=== PATIENT | male | born 1960 | race African-American/Black ===

== ENCOUNTER 2018-05-01 01:39 | Emergency (ER) | payer BC ==
--- NOTE | 2018-05-01 02:12 | PDOC ---
History of Present Illness - General Stated Complaint: URINARY PROBLEM Time Seen by Provider: 05/01/18 01:53 History Source: Patient Exam Limitations: No Limitations - History of Present Illness Travel History: No Initial Comments: 05/01/18 02:11 Best Contact: PCP:None/currently looking for a PMD Pmhx: March 2018/CVA in [place], hypertension Pshx: Two cardiac stents Allergies: MKDA FH:0 Social Hx: Cigarettes/ 0 Alcohol/ social Drugs/0 LMP: N/A 58-year-old male presents to the ER with his complaining of right sided scrotal tenderness without swelling/erythema/discharge and urinary frequency/ urgency with dysuria 3 days but denies fever, chills, nausea/vomiting, headache , dizziness, lightheadedness, facial pains, neck pain/stiffness, back pain, chest pain, shortness of breath, hematuria, extremity numbness or tingling sensation. Patient states he had a stroke approximately 1 month ago and since the incident, he has been unable to void and have him bowel movement on a regular basis. Patient's last bowel movement was yesterday. Patient states he was able to make very hard small bowel movement. Patient states, his blood pressure is usually elevated after his CVA last month. Patient states he saw his clinical exercise specialist 3 days ago and he would like to keep his blood pressure elevated 05/01/18 02:85 B/P 142/70 Past History - Past Medical History Allergies/Adverse Reactions: Allergies Allergy/AdvReac Type Severity Reaction Status Date / Time No Known Drug Allergies Allergy Verified 05/01/18 02:25 "PORK CHOPS' AdvReac Nausea Uncoded 05/01/18 02:25 Home Medications: Ambulatory Orders NK [No Known Home Medication] 04/26/15 Cardiac Disorders: Yes HTN: Yes Hypercholesterolemia: Yes - Surgical History Cardiac Surgery: Yes (STENTS x3) - Immunization History Immunization Up to Date: Yes - Suicide/Smoking/Psychosocial Hx Smoking Status: Yes Smoking History: Current every day smoker Have you smoked in the past 12 months: Yes Number of Cigarettes Smoked Daily: 4 Hx Alcohol Use: Yes Drug/Substance Use Hx: No Substance Use Type: Alcohol Review of Systems - Review of Systems Able to Perform ROS?: Yes Comments:: 05/01/18 02:10 CONSTITUTIONAL: Absent: fever, chills, diaphoresis, generalized weakness, malaise, loss of appetite HEENT: Absent: rhinorrhea, nasal congestion, throat pain, throat swelling, difficulty swallowing, mouth swelling, ear pain, eye pain, visual Changes CARDIOVASCULAR: Absent: chest pain, loss of consciousness, palpitations, irregular heart rate, peripheral edema RESPIRATORY: Absent: cough, shortness of breath, dyspnea with exertion, orthopnea, wheezing, stridor, hemoptysis GASTROINTESTINAL: Absent: abdominal pain, abdominal distension, nausea, vomiting, diarrhea, constipation, melena, hematochezia GENITOURINARY: +dysuria, frequency, urgency, hesitancy Absent: , hematuria, flank pain, genital pain MUSCULOSKELETAL: Absent: myalgia, arthralgia, joint swelling SKIN: Absent: rash, itching, pallor HEMATOLOGIC/IMMUNOLOGIC: Absent: easy bleeding, easy bruising, lymphadenopathy, frequent infections ENDOCRINE: Absent: unexplained weight gain, unexplained weight loss, heat intolerance, cold intolerance NEUROLOGIC: Absent: headache, focal weakness or paresthesias, dizziness, unsteady gait, seizure, mental status changes, bladder or bowel incontinence PSYCHIATRIC: Absent: anxiety, depression, suicidal or homicidal ideation, hallucinations. Is the patient limited Chinese proficient: No *Physical Exam - Physical Exam Comments: 05/01/18 02:11 GENERAL: Well developed, well nourished. Awake and alert. No acute distress. HEENT: Normocephalic, atraumatic. PERRLA, EOMI. No conjunctival pallor. Sclera are non- icteric. Moist mucous membranes. Oropharynx is clear. NECK: Supple. Full ROM. No JVD. Carotid pulses 2+ and symmetric, without bruits. No thyromegaly. No lymphadenopathy. CARDIOVASCULAR: Regular rate and rhythm. No murmurs, rubs, or gallops. Distal pulses are 2+ and symmetric. PULMONARY: No evidence of respiratory distress. Lungs clear to auscultation bilaterally. No wheezing, rales or rhonchi. ABDOMINAL: +cremaster reflex bilaterally, Neg Phrehn sign neg testicular swelling/erythema Soft. Non-tender. Non-distended. No rebound or guarding. No organomegaly. Normoactive bowel sounds. MUSCULOSKELETAL Normal range of motion at all joints. No bony deformities or tenderness. No CVA tenderness. EXTREMITIES: No cyanosis. No clubbing. No edema. No calf tenderness. SKIN: Warm and dry. Normal capillary refill. No rashes. No jaundice. ED Treatment Course - LABORATORY CBC & Chemistry Diagram: 05/01/18 02:52 05/01/18 02:52 Progress Note - Progress Note Progress Note: 0700hrs: Signed out to ZUHAIR Bishop *DC/Admit/Observation/Transfer Diagnosis at time of Disposition: UTI (urinary tract infection) Qualifiers: Urinary tract infection type: acute cystitis Hematuria presence: without hematuria Qualified Code(s): N30.00 - Acute cystitis without hematuria Leukopenia Qualifiers: Leukopenia type: unspecified Qualified Code(s): D72.819 - Decreased white blood cell count, unspecified - Discharge Dispostion Condition at time of disposition: Fair Decision to Admit order: Yes - Referrals - Patient Instructions - Post Discharge Activity
[2018-05-01 02:25] VITALS: BMI 26.6
[2018-05-01] MEDS ORDERED: SODIUM CHLORIDE 1,000 ML IV STA (02:41)
[2018-05-01 03:05] LABS: BASO % 0.7 % (0-2.0); EOS % 4.4 % (0-4.5); HEMATOCRIT 35.3 % (35.4-49); HEMOGLOBIN 11.4 GM/dL (11.7-16.9); LYMPH % 43.1 % (8-40); MCH 22.5 pg (25.7-33.7); MCHC 32.4 g/dl (32.0-35.9); MEAN CELL VOLUME 69.4 fl (80-96); MONO % 11.2 % (3.8-10.2); NEUT % 40.6 % (42.8-82.8); PLATELET COUNT 208 K/MM3 (134-434); RBC 5.08 M/mm3 (4.00-5.60); RDW 16.7 % (11.9-15.9); WHITE BLOOD COUNT 3.9 K/mm3 (4.0-10.0)
[2018-05-01 03:14] LABS: URINE APPEARANCE CLOUDY; URINE BILIRUBIN NEGATIVE (<2.0 mg/dL); URINE COLOR YELLOW; URINE GLUCOSE (UA) NEGATIVE (NEGATIVE); URINE KETONE TRACE (NEGATIVE); URINE NITRITE NEGATIVE (NEGATIVE); URINE UROBILINOGEN 4.0 E.U/dl mg/dL (0.2-1.0)
[2018-05-01 03:17] LABS: URINE LEUK ESTERASE 1+ (NEGATIVE); URINE PROTEIN 2+ (NEGATIVE)
[2018-05-01 03:19] LABS: URINE BACTERIA MODERATE /hpf (NONE SEEN); URINE HYALINE CAST 3 /lpf; YEAST RARE
[2018-05-01 03:27] LABS: ALBUMIN 3.6 g/dl (3.4-5.0); ALK PHOS 90 U/L (45-117); ANION GAP 3 (8-16); BILIRUBIN,TOTAL 0.3 mg/dL (0.2-1.0); BLOOD UREA NITROGEN 17 mg/dL (7-18); CALCIUM 8.7 mg/dL (8.5-10.1); CHLORIDE 108 mmol/L (98-107); CO2 33 mmol/L (21-32); CREATININE 1.3 mg/dL (0.7-1.3); GLUCOSE,RANDOM 89 mg/dL (74-106); POTASSIUM 4.1 mmol/L (3.5-5.1); SGOT/AST 23 U/L (15-37); SGPT/ALT 21 U/L (12-78); SODIUM 144 mmol/L (136-145); TOT PROT 6.5 g/dl (6.4-8.2)
[2018-05-01] MEDS ORDERED: CEFTRIAXONE 1,000 MG in DEXTROSE 5%-WATER - 50 ML IVPB ONE (04:05)
[2018-05-01] MEDS ORDERED: CEFTRIAXONE 1 GM/50 ML BAG ONE (04:18)
--- NOTE | 2018-05-01 04:43 | PDOC ---
*Physical Exam - Vital Signs Last Vital Signs Temp Pulse Resp BP Pulse Ox 97.8 F 84 20 175/99 100 05/01/18 02:22 05/01/18 02:22 05/01/18 02:22 05/01/18 02:22 05/01/18 02:22 - Physical Exam Comments: 05/01/18 04:42 NAD, well appearing, +BASELINE dysarthric, MMM, nl conjunctiva, anicteric; neck supple. lungs clear, RRR, abdomen soft nontender. +right scrotal tenderness , but no swelling, or skin changes/erythema. normal testicular lie. +cremaster reflex bilaterally. penis normal. no hernia. MORENO x4. No peripheral edema. normal color for ethnicity, WWP. 05/01/18 04:46 ED Treatment Course - LABORATORY CBC & Chemistry Diagram: 05/01/18 02:52 05/01/18 02:52 - ADDITIONAL ORDERS Additional order review: Laboratory Results 05/01/18 05/01/18 02:58 02:52 Sodium 144 Potassium 4.1 Chloride 108 H Carbon Dioxide 33 H D Anion Gap 3 L BUN 17 Creatinine 1.3 Creat Clearance w eGFR 56.90 Random Glucose 89 Calcium 8.7 Total Bilirubin 0.3 AST 23 D ALT 21 Alkaline Phosphatase 90 Total Protein 6.5 Albumin 3.6 Urine Color Yellow Urine Appearance Cloudy Urine pH 5.0 Ur Specific [place] 1.028 Urine Protein 2+ H Urine Glucose (UA) Negative Urine Ketones Trace H Urine Blood 1+ H Urine Nitrite Negative Urine Bilirubin Negative Urine Urobilinogen 4.0 e.u/dl Ur Leukocyte Esterase 1+ H Urine WBC (Auto) 418 Urine RBC (Auto) 18 Urine Bacteria Moderate Hyaline Casts 3 Urine Yeast Rare 05/01/18 02:52 RBC 5.08 MCV 69.4 L MCHC 32.4 RDW 16.7 H MPV 8.0 Neutrophils % 40.6 L D Lymphocytes % 43.1 H D Monocytes % 11.2 H D Eosinophils % 4.4 D Basophils % 0.7 - Medications Given in the ED: ED Medications Discontinued Medications Generic Name Dose Route Start Last Admin Trade Name Freq PRN Reason Stop Dose Admin Sodium Chloride 1,000 mls @ 1,000 mls/hr 05/01/18 02:41 05/01/18 03:00 Normal Saline - IV 05/01/18 03:40 1,000 mls/hr ASDIR STA Administration Ceftriaxone Sodium 1,000 mg/ 50 mls @ 100 mls/hr 05/01/18 04:05 05/01/18 04: 15 Dextrose IVPB 05/01/18 04:34 100 mls/hr ONCE ONE Administration Medical Decision Making - Medical Decision Making 05/01/18 04:45 The patient was seen and evaluated in conjunction with midlevel provider under my direct supervision, ancillary studies were reviewed. I agree with the plan as outlined by Abida Duvall 58 YOM CAD s/p cardiac stents 3, hypertension, CVA presenting with sx, dysuria and testicular pain. DDx UTI, epididymitis, prostatitis, orchitis, doubt intra abdominal pathology. vital signs stable, no fever. defer blood cultures for now. labs with mild leukopenia <4K. UA +infection with bacteria, leuk esterase and WBCs, f/u urine cx Scrotal us to eval for epididymorchitis/UTI. IV ceftriaxone 1g x1. place on OBS, anticipate admit. not comfortable with discharge home as he is also unreliable with history and exam and collateral info provided, with recent stroke in [place]; would like admit for continued management and therapy stated. will d/w hospitalist concrete stone fabricator Dr. Silva, and monitor closely. 05/01/18 04:47 05/01/18 05:03 *DC/Admit/Observation/Transfer Diagnosis at time of Disposition: UTI (urinary tract infection) Qualifiers: Urinary tract infection type: acute cystitis Hematuria presence: without hematuria Qualified Code(s): N30.00 - Acute cystitis without hematuria Leukopenia Qualifiers: Leukopenia type: unspecified Qualified Code(s): D72.819 - Decreased white blood cell count, unspecified - Discharge Dispostion Condition at time of disposition: Fair - Referrals - Patient Instructions - Post Discharge Activity
[2018-05-01 06:35] VITALS: TEMP 98
--- NOTE | 2018-05-01 09:30 | PDOC ---
ED Treatment Course - LABORATORY CBC & Chemistry Diagram: 05/01/18 02:52 05/01/18 02:52 - ADDITIONAL ORDERS Additional order review: Laboratory Results 05/01/18 05/01/18 02:58 02:52 Sodium 144 Potassium 4.1 Chloride 108 H Carbon Dioxide 33 H D Anion Gap 3 L BUN 17 Creatinine 1.3 Creat Clearance w eGFR 56.90 Random Glucose 89 Calcium 8.7 Total Bilirubin 0.3 AST 23 D ALT 21 Alkaline Phosphatase 90 Total Protein 6.5 Albumin 3.6 Urine Color Yellow Urine Appearance Cloudy Urine pH 5.0 Ur Specific [place] 1.028 Urine Protein 2+ H Urine Glucose (UA) Negative Urine Ketones Trace H Urine Blood 1+ H Urine Nitrite Negative Urine Bilirubin Negative Urine Urobilinogen 4.0 e.u/dl Ur Leukocyte Esterase 1+ H Urine WBC (Auto) 418 Urine RBC (Auto) 18 Urine Bacteria Moderate Hyaline Casts 3 Urine Yeast Rare 05/01/18 02:52 RBC 5.08 MCV 69.4 L MCHC 32.4 RDW 16.7 H MPV 8.0 Neutrophils % 40.6 L D Lymphocytes % 43.1 H D Monocytes % 11.2 H D Eosinophils % 4.4 D Basophils % 0.7 - Medications Given in the ED: ED Medications Discontinued Medications Generic Name Dose Route Start Last Admin Trade Name Freq PRN Reason Stop Dose Admin Sodium Chloride 1,000 mls @ 1,000 mls/hr 05/01/18 02:41 05/01/18 03:00 Normal Saline - IV 05/01/18 03:40 1,000 mls/hr ASDIR STA Administration Ceftriaxone Sodium 1,000 mg/ 50 mls @ 100 mls/hr 05/01/18 04:05 05/01/18 04: 15 Dextrose IVPB 05/01/18 04:34 100 mls/hr ONCE ONE Administration Progress Note - Progress Note Progress Note: I have received report from ZUHAIR Kennedy regarding this patient. Pt's initial chief complaint: right scrotal tenderness and urinary frequency Pt's work up completed prior to sign out: labs, UA Pt treatment given from prior staff: IV rocephin, IV fluids Pt plan to be completed: awaiting scrotal ultrasound Dispo: d/c to home if ultrasound ok Medical Decision Making - Medical Decision Making A/P: 58 y/o male with urinary frequency and right scrotal tenderness. Patient initially evaluated by ZUHAIR Kennedy. Found to have UTI and give IV abx. Awaiting scrotal ultrasound. Scrotal Ultrasound IMPRESSION: b/l hydroceles. No evidence of torsion. Will discharge to home with rx for UTI and instructions to f/u with PCP. Pt instructed to return to the ER immediately with any worsening or concerning symptoms. The patient verbalizes understanding of all instructions, has no further questions and is awaiting discharge. *DC/Admit/Observation/Transfer Diagnosis at time of Disposition: UTI (urinary tract infection) Qualifiers: Urinary tract infection type: acute cystitis Hematuria presence: without hematuria Qualified Code(s): N30.00 - Acute cystitis without hematuria Leukopenia Qualifiers: Leukopenia type: unspecified Qualified Code(s): D72.819 - Decreased white blood cell count, unspecified - Discharge Dispostion Disposition: HOME Condition at time of disposition: Fair - Referrals Referrals: Bishnu Vargas MD [Staff Physician] - - Patient Instructions Printed Discharge Instructions: DI for Urinary Tract Infection (UTI), DI for Hydrocele-Adult Additional Instructions: Discharge instructions: -You have a urinary tract infection -A prescription for antibiotics has been sent to your pharmacy; please start taking TOMORROW, 05/02/18 -Your ultrasound showed hydroceles of your testicles, which usually goes away on its own without treatment -Please drink plenty of fluids -Please follow up with either Dr. Vargas or your own primary care doctor tomorrow -Return to the ER with any worsening or concerning symptoms - Post Discharge Activity
[2018-05-01 10:07] VITALS: BP 169/124; PULSE 75
== END 2018-05-01 10:56 | disposition home or self-care (01) ==
LOC: JER 01:39
PROC: 3E03329 Introduction of Other Anti-infective into Peripheral Vein, Percutaneous Approach (ICD-10-PCS; principal; 2018-05-01)
PROC: 3E0337Z Introduction of Electrolytic and Water Balance Substance into Peripheral Vein, Percutaneous Approach (ICD-10-PCS; 2018-05-01)
DX: N30.00 Acute cystitis without hematuria (principal); D72.819 Decreased white blood cell count, unspecified; Z95.5 Presence of coronary angioplasty implant and graft; I10 Essential (primary) hypertension; E78.00 Pure hypercholesterolemia, unspecified; F17.210 Nicotine dependence, cigarettes, uncomplicated
CPT/HCPCS: 36415; 76870-TC; 80053; 81003; 81015; 85025; 87077; 87086; 99282-25; J7030

== ENCOUNTER 2018-06-01 01:12 | Emergency (ER) | payer BC ==
--- NOTE | 2018-06-01 01:30 | PDOC ---
Medical Decision Making - Medical Decision Making 06/01/18 01:30 Mr Doan is a 58 yo M h/o recent CVA (with speech difficulties), HTN who returns to the ER with a complaint of testicular swelling and dysuria Pt was seen in the ER several weeks ago where US demonstrated hydrocele UA demonstrated Strep, pt was discharged on Keflex According to , the patient improved briefly on the keflex but his symptoms returned almost immediately after he completed his course of antibiotics no fevers or chills Pt reports that he has urgency, frequency, dysuria, decreased urine output Scrotal edema has also worsened UA demonstrates UTI Laboratory Tests 06/01/18 02:20 Urine Blood 2+ H Urine Nitrite Positive Ur Leukocyte Esterase 3+ H D Urine WBC (Auto) 1296 Urine RBC (Auto) 49 Urine Bacteria Many US demonstrates hydrocele as well as epididymitis Will treat with Cipro Pt has follow up with Urology already Pt asked to monitor for fevers Return to the ER for any other concerns or complaints Discussed with pt and risk of tendon rupture, and signs of possible tendinitis Pt seen by Midlevel Provider under my direct supervision Pt interviewed and examined Ancillary studies reviewed I agree with plan as outlined by Midlevel Provider *DC/Admit/Observation/Transfer Diagnosis at time of Disposition: UTI (urinary tract infection), Acute epididymitis - Discharge Dispostion Disposition: HOME Condition at time of disposition: Fair - Prescriptions Prescriptions: Ciprofloxacin [Cipro -] 500 mg PO Q12H #20 tablet - Referrals - Patient Instructions Printed Discharge Instructions: DI for Epididymitis Additional Instructions: drink plenty of fluids take cipro twice daily as prescribed, follow up with the urology as soon as possible. return to the ER for any worsening symptoms, fever - Post Discharge Activity Forms/Work/School Notes: Back to Work
[2018-06-01 01:52] VITALS: BP 143/83; PULSE 95; TEMP 99.1; BMI 23.6
[2018-06-01 02:33] LABS: URINE APPEARANCE TURBID; URINE BILIRUBIN NEGATIVE (<2.0 mg/dL); URINE COLOR DKYELLOW; URINE GLUCOSE (UA) NEGATIVE (NEGATIVE); URINE KETONE NEGATIVE (NEGATIVE); URINE NITRITE POSITIVE (NEGATIVE); URINE UROBILINOGEN NEGATIVE mg/dL (0.2-1.0)
[2018-06-01 02:39] LABS: URINE LEUK ESTERASE 3+ (NEGATIVE); URINE PROTEIN 1+ (NEGATIVE)
[2018-06-01 02:41] LABS: URINE BACTERIA MANY /hpf (NONE SEEN); URINE MUCUS RARE
--- NOTE | 2018-06-01 02:48 | PDOC ---
History of Present Illness - General Chief Complaint: Edema Stated Complaint: TESTICULAR SWELLING Time Seen by Provider: 06/01/18 01:15 - History of Present Illness Initial Comments: 06/01/18 02:43 58 year old male with b/l testicular swelling and pain since last night, patient also reports dysuria and frequency of urination, denies fever / chills. patient was seen in the ED for similar complaints 05/01/18 was given cephalexin for UTI. US showed b/l hydroceles. patient has a pending urology appointment on 06/13/18. histoory of recent stroke with right sided weakness Past History - Past Medical History Allergies/Adverse Reactions: Allergies Allergy/AdvReac Type Severity Reaction Status Date / Time No Known Drug Allergies Allergy Verified 05/01/18 02:25 "PORK CHOPS' AdvReac Nausea Uncoded 05/01/18 02:25 Home Medications: Ambulatory Orders Cephalexin Monohydrate [Keflex -] 500 mg PO BID #10 capsule 05/01/18 Ciprofloxacin [Cipro -] 500 mg PO Q12H #20 tablet 06/01/18 Cardiac Disorders: Yes COPD: No HTN: Yes Hypercholesterolemia: Yes - Surgical History Cardiac Surgery: Yes (STENTS x3) - Immunization History Immunization Up to Date: Yes - Suicide/Smoking/Psychosocial Hx Smoking Status: Yes Smoking History: Never smoked Have you smoked in the past 12 months: No Number of Cigarettes Smoked Daily: 4 Information on smoking cessation initiated: No Hx Alcohol Use: No Drug/Substance Use Hx: No Substance Use Type: Alcohol Review of Systems - Review of Systems Able to Perform ROS?: Yes Is the patient limited [place] proficient: No Constitutional: No: Symptoms Reported, See HPI, Chills, Diaphoresis, Fever, Loss of Appetite, Malaise, Night Sweats, Weakness, Weight Stable, Unintentional Wgt. Loss, Unexplained wgt Loss, Other ABD/GI: No: Symptoms Reported, See HPI, Abdominal Distended, Abd. Pain w/ defecation, Blood Streaked Bowels, Constipated, Diarrhea, Difficulty Swallowing , Nausea, Poor Appetite, Poor Fluid Intake, Rectal Bleeding, Vomiting, Indigestion, Abdominal cramping, Tarry Stools, Other : Yes: Burning, Dysuria, Pain, Urgency, Testicular Swelling, Testicular Pain *Physical Exam - Vital Signs Last Vital Signs Temp Pulse Resp BP Pulse Ox 99.1 F 95 H 20 143/83 100 06/01/18 01:15 06/01/18 01:15 06/01/18 01:15 06/01/18 01:15 06/01/18 01:15 - Physical Exam General Appearance: Yes: Appropriately Dressed Respiratory/Chest: positive: Lungs Clear, Normal Breath Sounds Cardiovascular: positive: Regular Rhythm, Regular Rate Gastrointestinal/Abdominal: positive: Normal Bowel Sounds, Soft Male Genitalia: positive: testicular tenderness (testicular edema, right and left testicle tenderness noted. ) Musculoskeletal: positive: Normal Inspection. negative: CVA Tenderness Extremity: positive: Normal Capillary Refill, Normal Inspection, Normal Range of Motion Integumentary: positive: Normal Color, Dry, Warm Neurologic: positive: Fully Oriented, Alert, Normal Mood/Affect ED Treatment Course - ADDITIONAL ORDERS Additional order review: Laboratory Results 06/01/18 02:20 Urine Color Dkyellow Urine Appearance Turbid Urine pH 6.0 Ur Specific [place] 1.004 Urine Protein 1+ H Urine Glucose (UA) Negative Urine Ketones Negative Urine Blood 2+ H Urine Nitrite Positive Urine Bilirubin Negative Urine Urobilinogen Negative Ur Leukocyte Esterase 3+ H D Urine WBC (Auto) 1296 Urine RBC (Auto) 49 Urine Bacteria Many Urine Mucus Rare - RADIOLOGY Radiology Studies Ordered: Category Date Time Status SCROTUM AND CONTENTS US [US] Stat Ultrasound 06/01/18 01:15 Taken Progress Note - Progress Note Progress Note: A: acute epidydymitis P: cipro urology follow up scrotal supportl *DC/Admit/Observation/Transfer Diagnosis at time of Disposition: Acute epididymitis UTI (urinary tract infection) Qualifiers: Urinary tract infection type: acute cystitis Hematuria presence: with hematuria Qualified Code(s): N30.01 - Acute cystitis with hematuria - Prescriptions Prescriptions: Ciprofloxacin [Cipro -] 500 mg PO Q12H #20 tablet - Referrals - Patient Instructions Printed Discharge Instructions: DI for Epididymitis Additional Instructions: drink plenty of fluids take cipro twice daily as prescribed, follow up with the urology as soon as possible. return to the ER for any worsening symptoms, fever - Post Discharge Activity Forms/Work/School Notes: Back to Work
[2018-06-01] MEDS ORDERED: PRESCRIPTION PAD 1 EACH EACH NR ONE (02:51)
== END 2018-06-01 03:04 | disposition home or self-care (01) ==
LOC: JER 01:12
DX: N30.01 Acute cystitis with hematuria (principal); Z95.5 Presence of coronary angioplasty implant and graft; I10 Essential (primary) hypertension; E78.00 Pure hypercholesterolemia, unspecified
CPT/HCPCS: 76870-TC; 81003; 81015; 87086; 87186; 99282-25

== ENCOUNTER 2018-07-21 10:06 | Emergency (ER) | payer BC ==
[2018-07-21 10:23] VITALS: BMI 25.7
--- NOTE | 2018-07-21 11:07 | PDOC ---
*Physical Exam - Vital Signs Last Vital Signs Temp Pulse Resp BP Pulse Ox 98.0 F 75 16 123/77 100 07/21/18 10:18 07/21/18 10:18 07/21/18 10:18 07/21/18 10:18 07/21/18 10:18 Medical Decision Making - Medical Decision Making 07/21/18 11:06 Pt seen by the Advanced Practice Provider under my direct supervision Ancillary studies reviewed I agree with plan as outlined by the Advanced Practice Provider ZUHAIR Rubin 58 year old M c/ hx of HTN, HLD, CVA called in for elevated potassium on routine labs. Pt has no complaints. Will check potassium here. If it was a spurious finding, will discharge pt home. *DC/Admit/Observation/Transfer - Referrals Referrals: Maral Benton MD [Primary Care Provider] - - Patient Instructions - Post Discharge Activity
--- NOTE | 2018-07-21 11:17 | PDOC ---
History of Present Illness - General Chief Complaint: Revisit, Lab Variance Stated Complaint: LAB VARIANCE Time Seen by Provider: 07/21/18 10:33 History Source: Patient, Friend Exam Limitations: No Limitations - History of Present Illness Initial Comments: 07/21/18 11:10 58 yo M w/ a h/o HTN, HLD, CVA 04/06 (w/ residual R sided weakness and expressive aphasia) sent by PMD for a high potassium. Pt saw his PMD Dr. Maral Benton from [facility] yesterday, had some labs drawn and received a voicemail last night saking him to come ti the ER for evlevated potassium level. Pt denies any medical complaints at this time. Denies fever/chills, no chest pain, no SOB, no h/o kidney disease, no prior h/o similar symptoms Past History - Past Medical History Allergies/Adverse Reactions: Allergies Allergy/AdvReac Type Severity Reaction Status Date / Time No Known Drug Allergies Allergy Verified 07/21/18 10:17 "PORK CHOPS' AdvReac Nausea Uncoded 07/21/18 10:17 Home Medications: Ambulatory Orders Cephalexin Monohydrate [Keflex -] 500 mg PO BID #10 capsule 05/01/18 Ciprofloxacin [Cipro -] 500 mg PO Q12H #20 tablet 06/01/18 Cardiac Disorders: Yes (CAD W/ STENTS) COPD: No HTN: Yes Hypercholesterolemia: Yes - Surgical History Cardiac Surgery: Yes (STENTS x3) - Immunization History Immunization Up to Date: Yes - Suicide/Smoking/Psychosocial Hx Smoking Status: Yes Smoking History: Never smoked Have you smoked in the past 12 months: No Number of Cigarettes Smoked Daily: 4 Information on smoking cessation initiated: No Hx Alcohol Use: No Drug/Substance Use Hx: No Substance Use Type: Alcohol Review of Systems - Review of Systems Able to Perform ROS?: Yes Constitutional: No: Chills, Fever, Malaise, Night Sweats HEENTM: No: Eye Pain, Recent change in vision, Throat Pain Respiratory: No: Cough, Shortness of Breath Cardiac (ROS): No: Chest Pain, Palpitations, Chest Tightness ABD/GI: No: Diarrhea, Nausea, Vomiting, Abdominal cramping : No: Dysuria, Hematuria Musculoskeletal: No: Back Pain Integumentary: No: Rash Neurological: No: Headache, Dizziness Psychiatric: No: Change in Appetite Endocrine: No: Unexplained Weight Loss *Physical Exam - Vital Signs Last Vital Signs Temp Pulse Resp BP Pulse Ox 98.0 F 75 16 123/77 100 07/21/18 10:18 07/21/18 10:18 07/21/18 10:18 07/21/18 10:18 07/21/18 10:18 - Physical Exam Comments: 07/21/18 11:20 slight expressive aphasia , as per patient, residual from 04/06 CVA General Appearance: Yes: Nourished. No: Apparent Distress HEENT: positive: JUAN CARLOS, Normal ENT Inspection, Normal Voice. negative: Pale Conjunctivae, Scleral Icterus (R), Scleral Icterus (L) Neck: positive: Supple. negative: Decreased range of motion, Tender midline Respiratory/Chest: positive: Lungs Clear, Normal Breath Sounds. negative: Respiratory Distress, Accessory Muscle Use Cardiovascular: positive: Regular Rhythm, Regular Rate Gastrointestinal/Abdominal: positive: Normal Bowel Sounds, Soft. negative: Tender Musculoskeletal: positive: Normal Inspection. negative: CVA Tenderness, Decreased Range of Motion Extremity: positive: Normal Capillary Refill, Normal Inspection, Normal Range of Motion. negative: Tender, Pedal Edema Integumentary: positive: Normal Color, Dry. negative: Jaundice, Rash Neurologic: positive: Fully Oriented, Alert, Normal Mood/Affect, Other (motor strength 2/5 RUE, 5/5 LUE, 4/5 RLE, 5/5 LLE (residual from CVA 04/06 as per patient).) ED Treatment Course - LABORATORY CBC & Chemistry Diagram: 07/21/18 11:00 07/21/18 11:00 Medical Decision Making - Medical Decision Making 07/21/18 11:21 58 yo M here foe evaluation of abnormal labs R/O hyperkalemia Vs hemolysis. Will do CBC, BMP, mag, phos, EKg and reassess. Pt asymptomatic at the moment. He asked for food, sandwich provided 07/21/18 11:56 Potassium is WNLs. Patient will get discharged carlos. Pt is in no apparent distress, ambulating without any problems WIll discharge home with PMD follow up Return for worsening/concerning symptoms Pt verbalizes undersanding and agrees with plan Case discussed with attending who agrees with assessment and plan *DC/Admit/Observation/Transfer Diagnosis at time of Disposition: Laboratory test - Discharge Dispostion Disposition: HOME Condition at time of disposition: Stable Decision to Admit order: No - Referrals Referrals: Maral Benton MD [Primary Care Provider] - - Patient Instructions - Post Discharge Activity
[2018-07-21 11:25] LABS: BASO % 0.9 % (0-2.0); EOS % 2.8 % (0-4.5); HEMATOCRIT 38.8 % (35.4-49); HEMOGLOBIN 12.1 GM/dL (11.7-16.9); LYMPH % 48.9 % (8-40); MCH 21.2 pg (25.7-33.7); MEAN CELL VOLUME 68.3 fl (80-96); MEAN PLT VOLUME 8.1 fl (7.5-11.1); MONO % 11.3 % (3.8-10.2); NEUT % 36.1 % (42.8-82.8); PLATELET COUNT 239 K/MM3 (134-434); RBC 5.68 M/mm3 (4.00-5.60); RDW 17.7 % (11.9-15.9)
[2018-07-21 11:47] LABS: ALBUMIN 3.7 g/dl (3.4-5.0); ALK PHOS 77 U/L (45-117); ANION GAP 9 MMOL/L (8-16); BILIRUBIN,TOTAL 0.6 mg/dL (0.2-1); BLOOD UREA NITROGEN 29 mg/dL (7-18); CALCIUM 9.1 mg/dL (8.5-10.1); CHLORIDE 101 mmol/L (98-107); CO2 26 mmol/L (21-32); CREATININE 1.2 mg/dL (0.55-1.3); GLUCOSE,RANDOM 79 mg/dL (74-106); MAGNESIUM 2.1 mg/dL (1.8-2.4); PHOSPHOROUS 3.5 mg/dL (2.5-4.9); POTASSIUM 3.8 mmol/L (3.5-5.1); SGOT/AST 17 U/L (15-37); SGPT/ALT 18 U/L (13-61); SODIUM 136 mmol/L (136-145); TOT PROT 6.9 g/dl (6.4-8.2)
[2018-07-21 12:15] LABS: ANISOCYTOSIS 1+; MACROCYTOSIS 1+
[2018-07-21 12:16] LABS: OVALOCYTE 1+
[2018-07-21 12:28] VITALS: BP 125/79; PULSE 68; TEMP 98
--- NOTE | 2018-07-21 14:45 | EKG ---
Test Reason : Blood Pressure : / mmHG Vent. Rate : 069 BPM Atrial Rate : 069 BPM P-R Int : 188 ms QRS Dur : 120 ms QT Int : 412 ms P-R-T Axes : 072 066 064 degrees QTc Int : 441 ms NORMAL SINUS RHYTHM POSSIBLE LEFT ATRIAL ENLARGEMENT LEFT VENTRICULAR HYPERTROPHY WITH QRS WIDENING ANTERIOR INFARCT (CITED ON OR BEFORE 11-MAR-2012) T WAVE ABNORMALITY, CONSIDER LATERAL ISCHEMIA ABNORMAL ECG WHEN COMPARED WITH ECG OF 30-MAY-2016 02:39, ST NO LONGER ELEVATED IN ANTERIOR LEADS T WAVE INVERSION NO LONGER EVIDENT IN INFERIOR LEADS T WAVE INVERSION NOW EVIDENT IN ANTEROLATERAL LEADS Confirmed by PJ RODRIGUEZ, BIBI (2013) on 07/21/2018 2:45:17 PM Referred By: Confirmed By:BIBI OLIVA MD
== END 2018-07-21 12:28 | disposition home or self-care (01) ==
LOC: JER 10:06
DX: Z00.01 Encounter for general adult medical examination with abnormal findings (principal); E87.5 Hyperkalemia; I25.10 Atherosclerotic heart disease of native coronary artery without angina pectoris; I10 Essential (primary) hypertension; E78.5 Hyperlipidemia, unspecified; E78.00 Pure hypercholesterolemia, unspecified; I69.820 Aphasia following other cerebrovascular disease; I69.851 Hemiplegia and hemiparesis following other cerebrovascular disease affecting right dominant side
CPT/HCPCS: 36415; 80053; 83735; 84100; 85025; 93005; 93010; 99282-25

== ENCOUNTER 2018-11-28 21:47 | Inpatient (IN) | payer BC ==
--- NOTE | 2018-11-28 23:06 | PDOC ---
Attending Attestation - HPI HPI: 11/28/18 23:30 The patient is a 58 year old male, with a significant PMH of HTN, HLD, CVA 2018 - right sided weakness, who presents to the emergency department s/p fall earlier today. The patient states he was at the grocery store when he found himself lying flat on the ground with no recall of what happened. He notes that he was ambulatory after the event and went about his normal day. The patients was at the grocery store and did not see the event but found the patient sitting up on the ground. Patient denies any complaints. The patient denies chest pain, shortness of breath, headache and dizziness. Denies fever, chills, nausea, vomit, diarrhea and constipation. Denies dysuria, frequency, urgency and hematuria. Allergies: NKA Social history: None reported - Physicial Exam PE: 11/28/18 23:30 Agree with resident's exam. <Sarah Mcfadden - Last Filed: 11/28/18 23:30> - Resident Resident Name: Grabiel Boles - ED Attending Attestation I have performed the following: I have examined & evaluated the patient, The case was reviewed & discussed with the resident, I agree w/resident's findings & plan - Medical Decision Making 11/29/18 02:24 58-year-old male status post syncopal episode with hypotension on arrival Labs are consistent with acute kidney injury CT scan of the brain shows no acute abnormality Troponin is within normal limits IV fluid normal saline 1 L bolus given with plans for admission, case discussed with hospitalist service <Heather Ortiz - Last Filed: 11/29/18 02:26> Attestations - Attestations 11/28/18 23:30 Documentation prepared by Sarah Mcfadden, acting as biomedical field service engineer for Heather Ortiz DO. <Sarah Mcfadden - Last Filed: 11/28/18 23:30>
--- NOTE | 2018-11-28 23:26 | PDOC ---
History of Present Illness - General Chief Complaint: Altered Mental Status Stated Complaint: CONFUSED Time Seen by Provider: 11/28/18 23:05 - History of Present Illness Initial Comments: 11/28/18 23:18 58 yo M with h/o HTN, HLD, CVA (04/06 with residual R sided weakness and expressive aphasia) on AC who p/w syncopal event. Patient reports episode of syncope this AM. Patient reports shopping at grocery store this AM (unknown time ), and being found face down on floor by . Patient does not recall how he got onto floor, or does not recall head trauma. Patient denies DEXTER, convulsions, vision change, palpitations, cough, wheezing, orthopena, PND, leg swelling/pain, N/V, F,C, CP, SOB, urinary complaints, hematuria, BPR, abdominal pain, diarrhea, constipation, lightheadedness, weakness, sensory changes. PMHx: as noted above ROS: as noted SHx: Social Etoh. Denies IVDA, Etoh. Allergies: NKDA Past History - Past Medical History Allergies/Adverse Reactions: Allergies Allergy/AdvReac Type Severity Reaction Status Date / Time No Known Drug Allergies Allergy Verified 11/28/18 23:53 "PORK CHOPS' AdvReac Nausea Uncoded 11/28/18 23:53 Home Medications: Ambulatory Orders Unobtainable 11/28/18 Cardiac Disorders: Yes (CAD W/ STENTS) COPD: No HTN: Yes Hypercholesterolemia: Yes - Surgical History Cardiac Surgery: Yes (STENTS x3) - Immunization History Immunization Up to Date: Yes - Suicide/Smoking/Psychosocial Hx Smoking Status: Yes Smoking History: Never smoked Have you smoked in the past 12 months: No Number of Cigarettes Smoked Daily: 4 Information on smoking cessation initiated: No Hx Alcohol Use: No Drug/Substance Use Hx: No Substance Use Type: Alcohol Trauma Specific PMHX - Complaint Specific PMHX Back Injury: No Neck Injury: No Review of Systems - Review of Systems Comments:: 11/28/18 23:32 GENERAL/CONSTITUTIONAL: No fever or chills. No weakness. HEAD, EYES, EARS, NOSE AND THROAT: No change in vision. No ear pain or discharge. No sore throat. CARDIOVASCULAR: No chest pain or shortness of breath RESPIRATORY: No cough, wheezing, or hemoptysis. GASTROINTESTINAL: No nausea, vomiting, diarrhea or constipation. GENITOURINARY: No dysuria, frequency, or change in urination. MUSCULOSKELETAL: No joint or muscle swelling or pain. No neck or back pain. SKIN: No rash NEUROLOGIC: No headache, vertigo, loss of consciousness, or change in strength/ sensation. ENDOCRINE: No increased thirst. No abnormal weight change HEMATOLOGIC/LYMPHATIC: No anemia, easy bleeding, or history of blood clots. ALLERGIC/IMMUNOLOGIC: No hives or skin allergy. *Physical Exam - Vital Signs Last Vital Signs Temp Pulse Resp BP Pulse Ox 98.2 F 92 H 16 85/49 L 100 11/28/18 21:58 11/28/18 21:58 11/28/18 21:58 11/28/18 21:58 11/28/18 21:58 - Physical Exam Comments: 11/28/18 23:32 GENERAL: Awake, alert, and fully oriented, in no acute distress HEAD: No signs of trauma, normocephalic, atraumatic EYES: PERRLA, EOMI, sclera anicteric, conjunctiva clear ENT: Auricles normal inspection, hearing grossly normal, nares patent, oropharynx clear without exudates. Moist mucosa NECK: Normal ROM, supple, no lymphadenopathy, JVD, or masses LUNGS: No distress, speaks full sentences, clear to auscultation bilaterally HEART: Regular rate and rhythm, normal S1 and S2, no murmurs, rubs or gallops, peripheral pulses normal and equal bilaterally. ABDOMEN: Soft, nontender, normoactive bowel sounds. No guarding, no rebound. No masses RECTAL: Absent gross blood, absent hemorrhoids, fissures. EXTREMITIES : Normal inspection, Normal range of motion, no edema. No clubbing or cyanosis. NEUROLOGICAL: Cranial nerves II through XII grossly intact. Speech dysarthric, normal gait, Motor strenght 2/5 RUE, 5/5 LUE, BL LE 5/5. Compared to interval neuro exam with residual deficits (CVA 04/06). SKIN: Warm, Dry, normal turgor, no rashes or lesions noted Moderate Sedation - Procedure Monitoring Vital Signs: Procedure Monitoring Vital Signs Temperature 98.2 F 11/28/18 21:58 Pulse Rate 92 H 11/28/18 21:58 Respiratory Rate 16 11/28/18 21:58 Blood Pressure 85/49 L 11/28/18 21:58 O2 Sat by Pulse Oximetry (%) 100 11/28/18 21:58 ED Treatment Course - LABORATORY CBC & Chemistry Diagram: 11/29/18 00:15 11/29/18 00:15 - ADDITIONAL ORDERS Additional order review: 11/29/18 01:44 Patient Information: : 1960 Order Type: Preliminary Name: CLAUDIA POLLARD Sex: M Study Description: CT HEAD Modality: CT Location: [facility] Referring Physician: MADDIE JEAN ADDENDUM Comments: Sam Mckeon MD wrote on Nov 29, 2018 at 01:25 AM: Referring Physician: MADDIE TAYLOR Addendum: There are also old bilateral cerebellar lobe infarcts without hemorrhage or mass effect. An embolic phenomena should be considered. This finding was verbally communicated to Grabiel Boles MD on WedNovember 29 2018 01:22:54 EDT. One or more of the following dose reduction techniques were used: automated exposure control, adjustment of the mA and/or kV according to patient size, use of iterative reconstructive technique. THIS DOCUMENT HAS BEEN ELECTRONICALLY SIGNED Jeff Mckeon MD 11/29/2018 01:24 EST M.D. Please call Imaging Electrical Engineering Designer [phone] with questions. Sam Mckeon MD CONFIDENTIALITY NOTICE: This information is intended only for the use of the recipient(s) named above. If you are not the intended recipient, or a person responsible for delivering it to the intended recipient, you are hereby notified that any disclosure, copying, distribution or use of any of the information contained in or attached to this transmission is STRICTLY PROHIBITED. If you have received this transmission in error, please immediately notify Imaging Electrical Engineering Designer and destroy the original transmission and its attachments without saving them in any manner [address] [place] [address] [place] [address] Phone: [phone] Fax: Email: [email or web address] Web: [email or web address] Patient Information: : 1960 Order Type: Preliminary Name: CLAUDIA POLLARD Sex: M Study Description: CT HEAD Modality: CT Location: [facility] Referring Physician: MADDIE JEAN Comments: Sam Mckeon MD wrote on Nov 29, 2018 at 01:14 AM: Referring Physician: MADDIE JEAN Patient Name: ATUL TAYLOR THIS IS A PRELIMINARY REPORT FROM [facility] DATE OF SERVICE: 2018-11-29 00:50:07 IMAGES: 171 EXAM: HEAD CT WITHOUT CONTRAST HISTORY: Trauma COMPARISON: None. FINDINGS: The ventricular system is midline and nondilated. Mild cortical atrophy is noted. There is moderate low attenuation in the left temporal lobe and posterior left parietal lobe, consistent with a large subacute left MCA distribution infarct. There is more significant low attenuation in the left occipital lobe consistent with encephalomalacia from old left DRENCHER distribution infarct. There is an old small right DRENCHER infarct as well. There is no bleed, mass, extra-axial fluid collection or mass effect. No skull fracture or skull lesion is identified. The visualized paranasal sinuses and mastoid air cells are clear. CONFIDENTIALITY NOTICE: This information is intended only for the use of the recipient(s) named above. If you are not the intended recipient, or a person responsible for delivering it to the intended recipient, you are hereby notified that any disclosure, copying, distribution or use of any of the information contained in or attached to this transmission is STRICTLY PROHIBITED. If you have received this transmission in error, please immediately notify Imaging Electrical Engineering Designer and destroy the original transmission and its attachments without saving them in any manner [address] [facility] [address] [place] [address] Phone: [phone] Fax: Email: [email or web address]: [email or web address] Patient Information: : 1960 Order Type: Preliminary Name: CLAUDIA POLLARD Sex: M Study Description: CT HEAD Modality: CT Location: [facility] Referring Physician: MADDIE JEAN IMPRESSION: Large subacute left middle cerebral artery which infarct without hemorrhage or mass effect. Old bilateral posterior distribution infarcts. One or more of the following dose reduction techniques were used: automated exposure control, adjustment of the mA and/or kV according to patient size, use of iterative reconstructive technique. THIS DOCUMENT HAS BEEN ELECTRONICALLY SIGNED Jeff Mckeon MD 11/29/2018 01:12 CATERINA Tovar. Please call Imaging Electrical Engineering Designer [phone] with questions. Sam Mckeon MD Clinicians - Please contact Imaging Electrical Engineering Designer with further questions at [phone] Patients - Please contact your Ordering Provider with questions - RADIOLOGY Radiology Studies Ordered: Category Date Time Status CXRPORT [CHEST X-RAY PORTABLE*] [RAD] Stat Radiology 11/28/18 23:06 Ordered Medical Decision Making - Medical Decision Making 11/28/18 23:28 58 yo M with h/o HTN, HLD, CVA (04/06 with residual R sided weakness and expressive aphasia) on AC who p/w syncopal event. BP 85/49, vitals otherwise wnl , AF, A&Ox3. Physical exam unremarkable. No acute neruo deficits on physical exam. Head atraumatic. No evidence of basilar skull fracture. C-spine neg per NEXUS criteria. R/o CVA. Will assess for VBI/TIA, cardiac dysarrythmias, hypoglycemia, electrolyte abnml, metabolic and toxic derangements, acid-base disturbances, infection. Ed Course: 11/29/18 00:06 EKG: NSR with absent acute JHONY, STD. Normal interval duration and axis. Similiar to interval EKG (07/2018) 11/29/18 01:19 BUN/Cr: 31/2.1 11/29/18 01:21 WBC: 2.3 Trop: Neg Per radiologist auditing control clerk patient with subacute left MCA infarct/embolic. 11/29/18 01:36 NS 1 L 11/29/18 01:44 CT AP: The ventricular system is midline and nondilated. Mild cortical atrophy is noted. There is moderate low attenuation in the left temporal lobe and posterior left parietal lobe, consistent with a large subacute left MCA distribution infarct. There is more significant low attenuation in the left occipital lobe consistent with encephalomalacia from old left DRENCHER distribution infarct. There is an old small right DRENCHER infarct as well. There is no bleed, mass, extra-axial fluid collection or mass effect. No skull fracture or skull lesion is identified. The visualized paranasal sinuses and mastoid air cells are clear Plan to admit ADIA, Syncope 11/29/18 01:45 BP improved 127/80 Patient endorsed to Patrick Conner, admitted to tele/Dr. Cardoza *DC/Admit/Observation/Transfer Diagnosis at time of Disposition: Syncope and collapse, ADIA (acute kidney injury) - Discharge Dispostion Condition at time of disposition: Stable Decision to Admit order: Yes - Referrals - Patient Instructions Printed Discharge Instructions: DI for Syncope in Adults (Fainting) Additional Instructions: Please return to the emergency department with any new or worsening symptoms or concerns. Please follow up with your primary care physician and neurology within 72 hours. - Post Discharge Activity - Attestations Physician Attestion: 11/28/18 23:40 I attest to the information provided in this note.
[2018-11-29 00:36] LABS: BASO % 0.9 % (0-2.0); EOS % 0.5 % (0-4.5); HEMATOCRIT 35.4 % (35.4-49); HEMOGLOBIN 11.7 GM/dL (11.7-16.9); LYMPH % 53.4 % (8-40); MCHC 33.1 g/dl (32.0-35.9); MEAN CELL VOLUME 69.4 fl (80-96); MEAN PLT VOLUME 8.5 fl (7.5-11.1); NEUT % 28.2 % (42.8-82.8); PLATELET COUNT 193 K/MM3 (134-434); RDW 17.6 % (11.9-15.9); WHITE BLOOD COUNT 2.3 K/mm3 (4.0-10.0)
[2018-11-29 00:52] LABS: INR 1.04 (0.83-1.09); PROTHROMBIN TIME (PATIENT) 12.3 SEC (9.7-13.0)
[2018-11-29 01:02] LABS: ALBUMIN 3.7 g/dl (3.4-5.0); ALK PHOS 78 U/L (45-117); ANION GAP 5 MMOL/L (8-16); BILIRUBIN,TOTAL 0.4 mg/dL (0.2-1); BLOOD UREA NITROGEN 31 mg/dL (7-18); CALCIUM 8.6 mg/dL (8.5-10.1); CHLORIDE 101 mmol/L (98-107); CO2 30 mmol/L (21-32); CREATININE 2.1 mg/dL (0.55-1.3); GLUCOSE,RANDOM 97 mg/dL (74-106); POTASSIUM 3.7 mmol/L (3.5-5.1); SGOT/AST 28 U/L (15-37); SGPT/ALT 32 U/L (13-61); SODIUM 136 mmol/L (136-145); TOT PROT 6.7 g/dl (6.4-8.2)
[2018-11-29] MEDS ORDERED: SODIUM CHLORIDE 1,000 ML IV STA (01:29)
--- NOTE | 2018-11-29 02:07 | HP ---
CHIEF COMPLAINT: Syncope PCP:does not know HISTORY OF PRESENT ILLNESS: history is taking from ED records as pt is poor historian with aphasia and his already left , will reach out to her IN AM for more detailes 58 yo M with h/o HTN, HLD, CVA (04/06 with residual R sided weakness and expressive aphasia) who p/w syncopal event. Patient reports episode of syncope this AM. Patient reports shopping at grocery store this AM (unknown time), and being found face down on floor by . Patient does not recall how he got onto floor, or does not recall head trauma. Patient denies DEXTER, convulsions, vision change, palpitations, cough, wheezing, orthopena, PND, leg swelling/pain, N/V, F,C, CP, SOB, urinary complaints, hematuria, BPR, abdominal pain, diarrhea, constipation, lightheadedness, weakness, sensory changes. pt lived with his and one of his kids , he is independent in showering and eating . his drove to the hospital after fall at the mall , unknown mechanical or syncopal ER course was notable for: (1) Head CT (2)CBC, CMP (3) NS 1 L bolus Recent Travel:denies PAST MEDICAL HISTORY: HTN , HLD CVA with residual aphasia and right side weakness PAST SURGICAL HISTORY: Social History: Smokin cig /day since age of 16 Alcohol:previous Drugs: denies Family History:non contributory Allergies No Known Drug Allergies Allergy (Verified 11/28/18 23:53) "PORK CHOPS' Adverse Reaction (Uncoded 11/28/18 23:53) Nausea HOME MEDICATIONS: Home Medications Medication Instructions Recorded Unobtainable 11/28/18 REVIEW OF SYSTEMS aphasia . poor dentation PHYSICAL EXAMINATION Vital Signs - 24 hr 11/28/18 11/29/18 21:58 00:25 Temperature 98.2 F Pulse Rate 92 H Respiratory 16 Rate Blood Pressure 85/49 L O2 Sat by Pulse 100 100 Oximetry (%) GENERAL: AAOx1 to person only does not know time or place in AND HEAD: Normal with no signs of trauma. EYES: Pupils equal, round and reactive to light, extraocular movements intact, sclera anicteric, EARS, NOSE, THROAT: Ears normal, nares patent, oropharynx clear without exudates. Moist mucous membranes. NECK: Normal range of motion, supple LUNGS: Breath sounds equal, clear to auscultation bilaterally. No wheezes, and no crackles. No accessory muscle use. HEART: Regular rate and rhythm, normal S1 and S2 without murmur, rub or gallop. ABDOMEN: Soft, nontender, not distended, normoactive bowel sounds, no guarding, UPPER EXTREMITIES: 2+ pulses, warm, well-perfused. No cyanosis. No clubbing. No peripheral edema.sensation decreased in right side , strength 5/5 left arm proximal and distal hand organic gardening teacher , biceps and triceps , right arm 4/5 biceps and triceps , hand organic gardening teacher 3/5 right arm hand organic gardening teacher 4/5 , biceps and triceps 5/5 , reflexes intact LOWER EXTREMITIES: 2+ pulses, warm, well-perfused. No calf tenderness. No peripheral edema. sensation decreased on the right leg , dorsiflexion and plantar flexion 5/5 B/L , leg extension and flexion 5/5 B/L , hip flexion and extension 5/5 B/L . NEUROLOGICAL: Cranial nerves II-XII intact. aphasia, right facial drop , sensation decreased on right face trigeminal pattern , DEBBIE, EOMI , uvula med line , cerebellum intact , AAOx 1 to person PSYCHIATRIC: SKIN: Warm, dry, normal turgor, Laboratory Results - last 24 hr 11/29/18 11/29/18 11/29/18 00:15 00:15 00:15 WBC 2.3 L RBC 5.10 Hgb 11.7 Hct 35.4 MCV 69.4 L MCH 23.0 L MCHC 33.1 RDW 17.6 H Plt Count 193 MPV 8.5 Absolute Neuts (auto) 0.7 L Neutrophils % 28.2 L D Lymphocytes % 53.4 H Monocytes % 17.0 H Eosinophils % 0.5 D Basophils % 0.9 Nucleated RBC % 0 PT with INR 12.30 INR 1.04 Sodium Potassium Chloride Carbon Dioxide Anion Gap BUN Creatinine Creat Clearance w eGFR Random Glucose Calcium Total Bilirubin AST ALT Alkaline Phosphatase Creatine Kinase 201 Creatine Kinase Index 0.4 CK-MB (CK-2) 1.0 Troponin I < 0.02 Total Protein Albumin Stool Occult Blood 11/29/18 11/29/18 00:15 00:20 WBC RBC Hgb Hct MCV MCH MCHC RDW Plt Count MPV Absolute Neuts (auto) Neutrophils % Lymphocytes % Monocytes % Eosinophils % Basophils % Nucleated RBC % PT with INR INR Sodium 136 Potassium 3.7 Chloride 101 Carbon Dioxide 30 Anion Gap 5 L BUN 31 H Creatinine 2.1 H Creat Clearance w eGFR 32.72 Random Glucose 97 Calcium 8.6 Total Bilirubin 0.4 AST 28 ALT 32 Alkaline Phosphatase 78 Creatine Kinase Creatine Kinase Index CK-MB (CK-2) Troponin I Total Protein 6.7 Albumin 3.7 Stool Occult Blood Negative CBC, BMP 11/29/18 00:15 11/29/18 00:15 Ct Head : FINDINGS: The ventricular system is midline and nondilated. Mild cortical atrophy is noted. There is moderate low attenuation in the left temporal lobe and posterior left parietal lobe, consistent with a large subacute left MCA distribution infarct. There is more significant low attenuation in the left occipital lobe consistent with encephalomalacia from old left SIMULATION TECHNICIAN distribution infarct. There is an old small right SIMULATION TECHNICIAN infarct as well. There is no bleed, mass, extra-axial fluid collection or mass effect. No skull fracture or skull lesion is identified. The visualized paranasal sinuses and mastoid air cells are clear. ASSESSMENT/PLAN: 58 yo M with h/o HTN, HLD, CVA (04/06 with residual R sided weakness and expressive aphasia) who p/w syncopal event # Fall likely secondary to syncopal episode vs. mechanical fall vs. orthostatic episode; unlikely stroke cannot r/o cardiac syncope. Admit for observation telometry. * EKG normal sinus rythym with no specific ST, T changes QTc: 434ms * echocardiogram in the morning * Brain MRI - patient has hx of CVA r/o new onset stroke or bleeding * Cartoid Doppler * Cardiac and BP monitoring * Fall precautions * Swallow evaluation at bedside * Will contact for home medications in morning Hypotension * presented with low blood pressure 85/49 * given 1 L bolus in the ED, will continue with 100 cc maintenace, pressure improved to 120/80 ADIA - likely pre-renal due to dehydration * BUN/Creatinine 31/2.1 * Cr - 1.1 baseline * repeat lab in the morning after IV fluid Hypertension * will hold med because patient came in hypotensive * verify home meds in the morning from the ([phone]) Hyperlipidemia * will continue home meds History of Stroke * Ct scan of head reviewed * Brain MRI in the morning * if no bleeding will start anticoagulation or aspirin FEN * F:100 cc normal saline * electrolytes monitor * Low Na diet Proph * DVT: Scd both legs * GI: no need Dispo * obs tele Code Status * will ask in the morning as patient is aphasic Visit type - Emergency Visit Emergency Visit: Yes ED Registration Date: 11/30/18 Care time: The patient presented to the Emergency Department on the above date and was hospitalized for further evaluation of their emergent condition. - New Patient This patient is new to me today: Yes Date on this admission: 11/30/18 - Critical Care Critical Care patient: No
[2018-11-29] MEDS ORDERED: SODIUM CHLORIDE 1,000 ML IV SCH ×2 (02:45→04:00)
--- NOTE | 2018-11-29 03:55 | PN ---
Teaching Attending Note Name of Resident: Patrick Mojica ATTENDING PHYSICIAN STATEMENT I saw and evaluated the patient. I reviewed the resident's note and discussed the case with the resident. I agree with the resident's findings and plan as documented. SUBJECTIVE: Seen and examined; please refer to resident note for further historical information. Briefly, this is a 58 y/o male with a significant PMH of CVA 2017 with multiple residual deficits presents with likely syncope. He was found by his on the ground by the car when headed to the grocery store. He doesn't remember how he fell. Denies stereotyped vertigo sx, new neurological deficits, chest pain, SOB. He is found to have an ADIA. He is ambulatory at baseline and his gait was checked by resident and I was informed it was near normal; not rechecked as had some OS+ with sx to mitigate fall risk. He was initially slightly hypotensive but his BP recovered with a bolus. 10 sys ROS done with best attempt and negative except for HPI albeit with limited history OBJECTIVE: VS, labs, imaging reviewed NAD, AAO but slow to respond with some noticable aphasia and weakness 2/2 CVA, resting comfortably in bed NC AT EOMI PERRLA RRR s1/2 no mgr Lungs CTAB, w/ sym exp NT ND +BS Neuro exam ASSESSMENT AND PLAN: Patient presents after being found facedown on the floor and he doesn't remember how he got there; he is a poor historian and thus will be worked up for likely syncope as it cannot be precluded with history alone. 1) Likely syncope -In the setting of b/l cerebellar chronic infarcts and a large chronic infarct of the L-temporal, frontal, occipitatl, and pareital lobe with exvacuodilatation of the L-lateral ventricle. Furthermore MRA done 09/2018 shows no flow in the distal R-vertebral artery; couldn't comment on the proximal arteries. Some other flow abnormalities, one potentially hemodynamically significant one being in the L-2 posterior branch. -Checking echo, carotid dopplers, monitoring telemetry. Given the likely neurogenic component consulting his neurologist Dr. Louie. -Hypotension definitely could have played a role; holding home meds (confirm with pharmacy) and keeping on IVF overnight. 2) ADIA -Calculate FeNa and FeUrea (cannot verify home meds) and gently hydrate; check CLAY. If worsens consult nephrology. 3) Leukopenia with lymphocytosis, low NATURAL GAS INSPECTOR, low mono -Consider peripheral smear; consider OP heme eval (seen on previous labs) 4) Hx CVA (03/2018, [place]) -Residual defects noted 5) Hx CAD s/p remote PCI x2 -Confirm and continue appropriate home meds 6) Hx HTN -Hold antihypertensives once doses confirmed with pharmacy 7) Microcytosis without anemia -Checking iron studies, reticulocytes, B12, folate. Present on prior studies
[2018-11-29 04:17] LABS: URINE APPEARANCE CLEAR; URINE BILIRUBIN NEGATIVE (<2.0 mg/dL); URINE COLOR YELLOW; URINE GLUCOSE (UA) NEGATIVE (NEGATIVE); URINE KETONE NEGATIVE (NEGATIVE); URINE LEUK ESTERASE NEGATIVE (NEGATIVE); URINE NITRITE NEGATIVE (NEGATIVE); URINE PROTEIN NEGATIVE (NEGATIVE)
[2018-11-29 07:40] VITALS: BMI 23.8
[2018-11-29 08:45] LABS: BASO % 0.6 % (0-2.0); EOS % 1.5 % (0-4.5); HEMATOCRIT 30.2 % (35.4-49); HEMOGLOBIN 10.2 GM/dL (11.7-16.9); LYMPH % 68.3 % (8-40); MCH 22.8 pg (25.7-33.7); MCHC 33.8 g/dl (32.0-35.9); MEAN CELL VOLUME 67.6 fl (80-96); MEAN PLT VOLUME 8.3 fl (7.5-11.1); MONO % 15.1 % (3.8-10.2); NEUT % 14.5 % (42.8-82.8); PLATELET COUNT 159 K/MM3 (134-434); RBC 4.48 M/mm3 (4.00-5.60); RDW 17.7 % (11.9-15.9); RETICULOCYTES 0.63 % (0.5-1.5)
[2018-11-29 09:31] LABS: ALBUMIN 3.3 g/dl (3.4-5.0); ALK PHOS 67 U/L (45-117); ANION GAP 7 MMOL/L (8-16); BILIRUBIN,TOTAL 0.4 mg/dL (0.2-1); BLOOD UREA NITROGEN 30 mg/dL (7-18); CHLORIDE 105 mmol/L (98-107); CO2 27 mmol/L (21-32); CREATININE 1.7 mg/dL (0.55-1.3); GLUCOSE,RANDOM 85 mg/dL (74-106); PHOSPHOROUS 3.6 mg/dL (2.5-4.9); POTASSIUM 3.5 mmol/L (3.5-5.1); SGOT/AST 23 U/L (15-37); SGPT/ALT 26 U/L (13-61); SODIUM 139 mmol/L (136-145)
[2018-11-29 09:39] LABS: INR 1.06 (0.83-1.09); PROTHROMBIN TIME (PATIENT) 12.5 SEC (9.7-13.0)
[2018-11-29 09:42] LABS: ACTIVATED PTT 34.6 SECONDS (25.2-36.5)
[2018-11-29 11:07] LABS: ANISOCYTOSIS 2+; MACROCYTOSIS 0; OVALOCYTE 1+
[2018-11-29 11:45] LABS: PLATELET ESTIMATE ADEQUATE
--- NOTE | 2018-11-29 12:11 | ECHO ---
Name: ATUL TAYLOR Exam:Adult Echocardiogram Study Date: 11/29/2018 08:36 AM Age: 58 yrs Reason For Study: syncope Height: 70 in Weight: 170 lb BSA: 1.9 m2 MMode/2D Measurements & Calculations IVSd: 0.88 cm Ao root diam: 3.4 cm LVIDd: 4.4 cm LA dimension: 3.4 cm LVIDs: 3.1 cm ACS: 2.3 cm LVPWd: 0.90 cm IVSs: 1.3 cm LVPWs: 1.5 cm EDV(Teich): 87.7 ml ESV(Teich): 39.2 ml Doppler Measurements & Calculations MV E max gregor: 56.5 cm/sec TR max gregor: 164.2 cm/sec MV A max gregor: 71.1 cm/sec TR max P.9 mmHg MV E/A: 0.80 Med Peak E' Gregor: 5.2 cm/sec Med E/e': 10.9 Lat Peak E' Gregor: 5.5 cm/sec Lat E/e': 10.4 Procedure A two-dimensional transthoracic echocardiogram with color flow and Doppler was performed. The patient was in normal sinus rhythm during the exam. Left Ventricle Ejection Fraction = 40%. Left ventricular systolic function is moderately reduced. E/A reversal consi stent with but not diagnostic of poor LV compliance. There is anterior, anteroseptal, and apical wall hypok inesis. There are regional wall motion abnormalities as specified. Right Ventricle The right ventricle is grossly normal size. The right ventricular systolic function is normal. Atria The left atrial size is normal. Right atrial size is normal. Mitral Valve The mitral valve is normal. There is no mitral regurgitation noted. Tricuspid Valve The tricuspid valve is normal. There is mild tricuspid regurgitation. Right ventricular systolic pres sure is normal. Aortic Valve The aortic valve is normal in structure and function. The aortic valve is trileaflet. The aortic valv e opens well. No aortic regurgitation is present. Pulmonic Valve The pulmonic valve is not well seen, but is grossly normal. Trace pulmonic valvular regurgitation. Great Vessels The aortic root is normal size. Pericardium/Pleura There is no pericardial effusion. Interpretation Summary Left ventricular systolic function is moderately reduced. Ejection Fraction = 40%. There is anterior, anteroseptal, and apical wall hypokinesis. E/A reversal consistent with but not diagnostic of poor LV compliance The right ventricular systolic function is normal. There is mild tricuspid regurgitation. Trace pulmonic valvular regurgitation. There is no pericardial effusion. MD Odell Lara 11/29/2018 12:10 PM
--- NOTE | 2018-11-29 13:31 | EKG ---
Test Reason : Blood Pressure : / mmHG Vent. Rate : 065 BPM Atrial Rate : 065 BPM P-R Int : 190 ms QRS Dur : 110 ms QT Int : 408 ms P-R-T Axes : 055 056 050 degrees QTc Int : 424 ms NORMAL SINUS RHYTHM ANTEROSEPTAL INFARCT (CITED ON OR BEFORE 11-MAR-2012) ABNORMAL ECG WHEN COMPARED WITH ECG OF 28-NOV-2018 23:44, NO SIGNIFICANT CHANGE WAS FOUND Confirmed by MD JUAN, ISELA ([id number]) on 11/29/2018 1:30:48 PM Referred By: Confirmed By:ISELA MARTINEZ MD
--- NOTE | 2018-11-29 13:31 | EKG ---
Test Reason : Blood Pressure : / mmHG Vent. Rate : 075 BPM Atrial Rate : 075 BPM P-R Int : 184 ms QRS Dur : 108 ms QT Int : 376 ms P-R-T Axes : 063 059 049 degrees QTc Int : 419 ms NORMAL SINUS RHYTHM POSSIBLE LEFT ATRIAL ENLARGEMENT ANTERIOR INFARCT (CITED ON OR BEFORE 11-MAR-2012) ABNORMAL ECG WHEN COMPARED WITH ECG OF 21-JUL-2018 10:48, NO SIGNIFICANT CHANGE WAS FOUND Confirmed by MD JUAN, ISELA ([id number]) on 11/29/2018 1:31:40 PM Referred By: Confirmed By:ISELA MARTINEZ MD
--- NOTE | 2018-11-29 13:39 | CON.NEURO ---
Consult - History of Present Illness History of Present Illness: 58 yo M with h/o HTN, HLD, CVA (04/06 with residual R sided weakness and expressive aphasia) who p/w syncopal event. Patient reports episode of syncope this AM. Patient reports shopping at grocery store this AM (unknown time), and being found face down on floor by . Patient does not recall how he got onto floor, or does not recall head trauma. no hx of seizures. Found to be hypotensive. Patient denies DEXTER, convulsions, vision change, palpitations, cough, wheezing, orthopena, PND, leg swelling/pain, N/V, F,C, CP, SOB, urinary complaints, hematuria, BPR, abdominal pain, diarrhea, constipation, lightheadedness, weakness, sensory changes. CT HD IMPRESSION: Bilateral cerebellar chronic infarction/encephalomalacia. Large area of encephalomalacia/chronic infarct again seen involving the left temporal , frontal, parietal and occipital lobe with mild exvacuodilatation of the left lateral ventricle. No gross acute infarct or acute intracranial hemorrhage are identified. Correlate clinically and if needed correlation with MRI of the brain would be more sensitive. Doppler: Impression: There is mild intimal thickening in the right common carotid artery moderate size plaque at the right common carotid bifurcation/bulb with hemodynamically significant stenosis of 50-69%. Moderate intimal thickening in the left common carotid artery with suggestion of small soft plaques. Small-to- moderate sized plaques at the left common carotid bifurcation and bulb without evidence of hemodynamically significant stenosis. Reversal of flow in visualized portion of the proximal right vertebral artery. The rest of the right vertebral artery was not visualized. Differential diagnosis includes a subclavian steal versus distal right vertebral artery obstruction. Correlation with CTA of the neck including the aortic arch is needed for further evaluation. - Alcohol/Substance Use Hx Alcohol Use: No - Smoking History Smoking history: Never smoked Have you smoked in the past 12 months: No Aproximately how many cigarettes per day: 4 Home Medications - Allergies Allergies/Adverse Reactions: Allergies Allergy/AdvReac Type Severity Reaction Status Date / Time No Known Drug Allergies Allergy Verified 11/28/18 23:53 "PORK CHOPS' AdvReac Nausea Uncoded 11/28/18 23:53 - Home Medications Home Medications: Ambulatory Orders Amlodipine Besylate 10 mg PO DAILY 11/29/18 Aspirin [Adult Aspirin] 81 mg PO DAILY 11/29/18 Atorvastatin Ca [Lipitor] 80 mg PO DAILY 11/29/18 Azilsartan Medoxomil [Edarbi] 80 mg PO DAILY 11/29/18 Chlorthalidone 25 mg PO DAILY 11/29/18 Metoprolol Succinate [Toprol Xl] 25 mg PO BID 11/29/18 Physical Exam-Neuro Vital Signs: Vital Signs Temperature 98 F 11/29/18 09:15 Pulse Rate 74 11/29/18 09:15 Respiratory Rate 18 11/29/18 09:15 Blood Pressure 134/72 11/29/18 09:15 O2 Sat by Pulse Oximetry (%) 100 11/29/18 07:31 Labs: CBC, BMP 11/29/18 08:00 11/29/18 08:00 INR, PTT INR 1.06 (0.83-1.09) 11/29/18 08:00 Imaging - Results Cat Scan: Report Reviewed Ultrasound: Report Reviewed Problem List - Problems (1) Aphasia as late effect of cerebrovascular accident Code(s): I69.320 - APHASIA FOLLOWING CEREBRAL INFARCTION (2) ADIA (acute kidney injury) Code(s): N17.9 - ACUTE KIDNEY FAILURE, UNSPECIFIED (3) Syncope and collapse Code(s): R55 - SYNCOPE AND COLLAPSE Assessment/Plan 58 yo M with h/o HTN, HLD, CVA (04/06 with residual R sided weakness and expressive aphasia) who p/w syncopal event. Patient reports episode of syncope this AM. Patient reports shopping at grocery store this AM (unknown time), and being found face down on floor by . Patient does not recall how he got onto floor, or does not recall head trauma. no hx of seizures. Found to be hypotensive. CT HD IMPRESSION: Bilateral cerebellar chronic infarction/encephalomalacia. Large area of encephalomalacia/chronic infarct again seen involving the left temporal , frontal, parietal and occipital lobe with mild exvacuodilatation of the left lateral ventricle. No gross acute infarct or acute intracranial hemorrhage are identified. Correlate clinically and if needed correlation with MRI of the brain would be more sensitive. Doppler: Impression: There is mild intimal thickening in the right common carotid artery moderate size plaque at the right common carotid bifurcation/bulb with hemodynamically significant stenosis of 50-69%. Moderate intimal thickening in the left common carotid artery with suggestion of small soft plaques. Small-to- moderate sized plaques at the left common carotid bifurcation and bulb without evidence of hemodynamically significant stenosis. Reversal of flow in visualized portion of the proximal right vertebral artery. The rest of the right vertebral artery was not visualized. Differential diagnosis includes a subclavian steal versus distal right vertebral artery obstruction. Correlation with CTA of the neck including the aortic arch is needed for further evaluation. AP : Presyncope in setting + VASC RF and hypotension , the latter which is the most likely culprit. Seizure possible but less likely in this stetting. Still unclear mechanism of his prior cortical stroke. carotid disease may have contributed to hypoperfusion though non surgical at this juncture. FU BP , orthostatics. FU MRI BRAIN and add MRA head and Neck. restart ASA and statin in meantime. No AED for now. Dr. Louie
--- NOTE | 2018-11-29 15:53 | PN ---
Teaching Attending Note Name of Resident: Rivera Logan ATTENDING PHYSICIAN STATEMENT I saw and evaluated the patient. I reviewed the resident's note and discussed the case with the resident. I agree with the resident's findings and plan as documented. SUBJECTIVE: no fever or chills. did not witness fall as she was walking ahead but patient complained of a little light headedness and not feeling well after the fall. OBJECTIVE: NAD, awake, alert , oriented x 3 , expressive aphasia dry MM, no axillary sweating CV: RRR, no MRG lungs: CTAB Ext: no edema or erythema Neuro: EOMI, round equal pupils, reactive to light , tongue and uvula at mid line, decreased sensation to lgiht touch on R sided face expresive aphasia Strength 5/5 in upper and lower extremities proximally and distally. sensation to light touch decreased on R side of the body reflexes : knee jerk could not be obtained as he was not relaxed. biceps 2+ b/l ASSESSMENT AND PLAN: Unfortunate 58 y/o man with h/o recent stroke with residual R sided sensory loss and expressive aphasia, HTN, HLP, R vertebral artery stenosis who presented after a fall and possible syncope 1- Possible syncope: likely due to orthostatic hypotension, as ortho VS were +. he clinically looks dry and has ADIA - hold BP meds - start IVf - tele monitoring. has a loop recorder after his stroke. will call card ofice to see if a report could be obtained - d/w Dr. Louie: MRA of brain and neck are recommended. pt had loop recorder since 04/06, had MRI in 10/08 - MRI/MRA of brain10/08 reviewed 2- h/o recent creptogenic stroke: - Loop recorder reading as above - cont statin - cont asa and plavix 3- h/o Hypertension: now BP on lower side and has + orthostatics. hold meds 4- ADIA : due to volume depletion - IVF 5- microcytic anemia : start with iron studies 6- neutropenia : New. ? viral . will repeat in am . if persistent , then consider heme eval - neutropenic precautions and neutropenic diet SCds and heparin
[2018-11-29] MEDS: SODIUM CHLORIDE 1,000 ML IV SCH (16:15)
--- NOTE | 2018-11-29 17:16 | EKG ---
Test Reason : Blood Pressure : / mmHG Vent. Rate : 083 BPM Atrial Rate : 083 BPM P-R Int : 170 ms QRS Dur : 102 ms QT Int : 370 ms P-R-T Axes : 068 068 068 degrees QTc Int : 434 ms POOR DATA QUALITY, INTERPRETATION MAY BE ADVERSELY AFFECTED NORMAL SINUS RHYTHM POSSIBLE LEFT ATRIAL ENLARGEMENT ANTERIOR INFARCT (CITED ON OR BEFORE 11-MAR-2012) T WAVE ABNORMALITY, CONSIDER LATERAL ISCHEMIA ABNORMAL ECG WHEN COMPARED WITH ECG OF 21-JUL-2018 10:48, T WAVE INVERSION LESS EVIDENT IN ANTERIOR LEADS Confirmed by MD JUAN, ISELA ([id number]) on 11/29/2018 5:16:02 PM Referred By: Confirmed By:ISELA MARTINEZ MD
--- NOTE | 2018-11-29 20:24 | PN ---
Physical Exam: SUBJECTIVE: Patient seen and examined at bedside. at bedside. OBJECTIVE: Vital Signs Period Temp Pulse Resp BP Sys/Fox Pulse Ox Last 24 Hr 97.9 F-98.2 F 65-92 16-20 85-134/49-85 98-100 GENERAL: NAD HEAD: Normal with no signs of trauma. EYES: EOMI Sclera clar ENT: MMM NECK: Trachea midline, full range of motion, supple. LUNGS: CTAB HEART: RRR nl s1s2 ABDOMEN: NDNT EXTREMITIES: 2+ pulses, warm, well-perfused, no edema. NEUROLOGICAL: Strength noticeabley reduced Right upper extremity ~3/5 strength. Left upper extremity 5/5 strength. SILT left side. Sensation reduced right side body. Strength 4/5 right lower extremity. Strength 5/5 left lower extremity. PSYCH: Normal mood, normal affect. Laboratory Results - last 24 hr 11/29/18 11/29/18 11/29/18 00:15 00:15 00:15 WBC 2.3 L RBC 5.10 Hgb 11.7 Hct 35.4 MCV 69.4 L MCH 23.0 L MCHC 33.1 RDW 17.6 H Plt Count 193 MPV 8.5 Absolute Neuts (auto) 0.7 L Neutrophils % 28.2 L D Neutrophils % (Manual) Band Neutrophils % Lymphocytes % 53.4 H Lymphocytes % (Manual) Monocytes % 17.0 H Monocytes % (Manual) Eosinophils % 0.5 D Eosinophils % (Manual) Basophils % 0.9 Basophils % (Manual) Myelocytes % (Man) Promyelocytes % (Man) Blast Cells % (Manual) Nucleated RBC % 0 Metamyelocytes Hypochromia Platelet Estimate Polychromasia Poikilocytosis Anisocytosis Microcytosis Macrocytosis Ovalocytes Acanthocytes (Spur) Schistocytes Retic Count PT with INR 12.30 INR 1.04 PTT (Actin FS) Sodium Potassium Chloride Carbon Dioxide Anion Gap BUN Creatinine Creat Clearance w eGFR Random Glucose Calcium Phosphorus Magnesium Ferritin Total Bilirubin AST ALT Alkaline Phosphatase Creatine Kinase 201 Creatine Kinase Index 0.5 CK-MB (CK-2) 1.1 Troponin I < 0.02 Total Protein Albumin Vitamin B12 Serum Folate Urine Color Urine Appearance Urine pH Ur Specific [place] Urine Protein Urine Glucose (UA) Urine Ketones Urine Blood Urine Nitrite Urine Bilirubin Urine Urobilinogen Ur Leukocyte Esterase Ur Random Sodium Urine Creatinine Stool Occult Blood 11/29/18 11/29/18 11/29/18 00:15 00:20 04:00 WBC RBC Hgb Hct MCV MCH MCHC RDW Plt Count MPV Absolute Neuts (auto) Neutrophils % Neutrophils % (Manual) Band Neutrophils % Lymphocytes % Lymphocytes % (Manual) Monocytes % Monocytes % (Manual) Eosinophils % Eosinophils % (Manual) Basophils % Basophils % (Manual) Myelocytes % (Man) Promyelocytes % (Man) Blast Cells % (Manual) Nucleated RBC % Metamyelocytes Hypochromia Platelet Estimate Polychromasia Poikilocytosis Anisocytosis Microcytosis Macrocytosis Ovalocytes Acanthocytes (Spur) Schistocytes Retic Count PT with INR INR PTT (Actin FS) Sodium 136 Potassium 3.7 Chloride 101 Carbon Dioxide 30 Anion Gap 5 L BUN 31 H Creatinine 2.1 H Creat Clearance w eGFR 32.72 Random Glucose 97 Calcium 8.6 Phosphorus Magnesium Ferritin Total Bilirubin 0.4 AST 28 ALT 32 Alkaline Phosphatase 78 Creatine Kinase Creatine Kinase Index CK-MB (CK-2) Troponin I < 0.02 Total Protein 6.7 Albumin 3.7 Vitamin B12 Serum Folate Urine Color Urine Appearance Urine pH Ur Specific [place] Urine Protein Urine Glucose (UA) Urine Ketones Urine Blood Urine Nitrite Urine Bilirubin Urine Urobilinogen Ur Leukocyte Esterase Ur Random Sodium Urine Creatinine Stool Occult Blood Negative 11/29/18 11/29/18 11/29/18 04:00 08:00 08:00 WBC 2.0 L RBC 4.48 Hgb 10.2 L Hct 30.2 L MCV 67.6 L MCH 22.8 L MCHC 33.8 RDW 17.7 H Plt Count 159 MPV 8.3 Absolute Neuts (auto) 0.3 L Neutrophils % 14.5 L D Neutrophils % (Manual) 18.2 L Band Neutrophils % 1.0 Lymphocytes % 68.3 H D Lymphocytes % (Manual) 60.6 H Monocytes % 15.1 H Monocytes % (Manual) 12 H Eosinophils % 1.5 D Eosinophils % (Manual) 2.0 Basophils % 0.6 Basophils % (Manual) 0.0 Myelocytes % (Man) 0 Promyelocytes % (Man) 0 Blast Cells % (Manual) 0 Nucleated RBC % 0 Metamyelocytes 0 Hypochromia 0 Platelet Estimate Adequate Polychromasia 0 Poikilocytosis 3+ Anisocytosis 2+ Microcytosis 2+ Macrocytosis 0 Ovalocytes 1+ Acanthocytes (Spur) 1+ Schistocytes 1+ Retic Count 0.63 PT with INR INR PTT (Actin FS) Sodium 139 Potassium 3.5 Chloride 105 Carbon Dioxide 27 Anion Gap 7 L BUN 30 H Creatinine 1.7 H Creat Clearance w eGFR 41.75 Random Glucose 85 Calcium 8.0 L Phosphorus 3.6 Magnesium 2.0 Ferritin 245.3 Total Bilirubin 0.4 AST 23 ALT 26 Alkaline Phosphatase 67 Creatine Kinase Creatine Kinase Index CK-MB (CK-2) Troponin I Total Protein 6.0 L Albumin 3.3 L Vitamin B12 364 Serum Folate 11 Urine Color Yellow Urine Appearance Clear Urine pH 6.0 Ur Specific [place] 1.018 Urine Protein Negative Urine Glucose (UA) Negative Urine Ketones Negative Urine Blood Negative Urine Nitrite Negative Urine Bilirubin Negative Urine Urobilinogen 2.0 Ur Leukocyte Esterase Negative Ur Random Sodium Urine Creatinine Stool Occult Blood 11/29/18 11/29/18 11/29/18 08:00 13:00 13:00 WBC RBC Hgb Hct MCV MCH MCHC RDW Plt Count MPV Absolute Neuts (auto) Neutrophils % Neutrophils % (Manual) Band Neutrophils % Lymphocytes % Lymphocytes % (Manual) Monocytes % Monocytes % (Manual) Eosinophils % Eosinophils % (Manual) Basophils % Basophils % (Manual) Myelocytes % (Man) Promyelocytes % (Man) Blast Cells % (Manual) Nucleated RBC % Metamyelocytes Hypochromia Platelet Estimate Polychromasia Poikilocytosis Anisocytosis Microcytosis Macrocytosis Ovalocytes Acanthocytes (Spur) Schistocytes Retic Count PT with INR 12.50 INR 1.06 PTT (Actin FS) 34.6 Sodium Potassium Chloride Carbon Dioxide Anion Gap BUN Creatinine Creat Clearance w eGFR Random Glucose Calcium Phosphorus Magnesium Ferritin Total Bilirubin AST ALT Alkaline Phosphatase Creatine Kinase Creatine Kinase Index CK-MB (CK-2) Troponin I Total Protein Albumin Vitamin B12 Serum Folate Urine Color Urine Appearance Urine pH Ur Specific [place] Urine Protein Urine Glucose (UA) Urine Ketones Urine Blood Urine Nitrite Urine Bilirubin Urine Urobilinogen Ur Leukocyte Esterase Ur Random Sodium 111 Urine Creatinine 197.0 Stool Occult Blood Active Medications Generic Name Dose Route Start Last Admin Trade Name Freq PRN Reason Stop Dose Admin Aspirin 81 mg 11/30/18 10:00 Ecotrin - PO DAILY [facility] Atorvastatin Calcium 80 mg 11/29/18 22:00 Lipitor - PO HS [facility] Clopidogrel Bisulfate 75 mg 11/30/18 10:00 Plavix - PO DAILY [facility] Heparin Sodium (Porcine) 5,000 unit 11/29/18 22:00 Heparin - SQ TID [facility] Sodium Chloride 1,000 mls @ 100 mls/hr 11/29/18 16:01 11/29/18 16:15 Normal Saline - IV 100 mls/hr ASDIR [facility] Administration Doppler: Impression: There is mild intimal thickening in the right common carotid artery moderate size plaque at the right common carotid bifurcation/bulb with hemodynamically significant stenosis of 50-69%. Moderate intimal thickening in the left common carotid artery with suggestion of small soft plaques. Small-to- moderate sized plaques at the left common carotid bifurcation and bulb without evidence of hemodynamically significant stenosis. Reversal of flow in visualized portion of the proximal right vertebral artery. The rest of the right vertebral artery was not visualized. Differential diagnosis includes a subclavian steal versus distal right vertebral artery obstruction. Correlation with CTA of the neck including the aortic arch is needed for further evaluation. CT HD IMPRESSION: Bilateral cerebellar chronic infarction/encephalomalacia. Large area of encephalomalacia/chronic infarct again seen involving the left temporal , frontal, parietal and occipital lobe with mild exvacuodilatation of the left lateral ventricle. No gross acute infarct or acute intracranial hemorrhage are identified. Correlate clinically and if needed correlation with MRI of the brain would be more sensitive. ASSESSMENT/PLAN: 58 yo M with h/o HTN, HLD, CVA (04/06 with residual R sided weakness and expressive aphasia) who p/w syncopal event # Fall likely 2/2 syncopal episode cannot r/o cardiac syncope. Admit for observation telometry. * EKG normal sinus rythym with no specific ST, T changes QTc: 434ms -echo---> Anterior, anteroseptal,and apical wall hypokinesis. EF 40%. -Brain MRI - patient has hx of CVA r/o new onset stroke or bleeding -Cartoid Doppler ---> see above for impression -Cardiac and BP monitoring. Has a loop recorder after his stroke. will call card office in am to see if any cardiac event during recent fall episode -Fall precautions -Swallow evaluation at bedside Hypotension -Improving with I.V fluids. Will continue ADIA - likely pre-renal due to dehydration -BUN/Creatinine 30/1.7 improving. Continue to trend -Cr - 1.1 baseline Hypertension -will hold med because patient came in hypotensive -MEDS Verified with this am. Hyperlipidemia * will continue home meds History of Stroke * Ct scan of head ---. See above for impression. * Brain MRI/ Neck MRA pending FEN NS@100cc/hr Monitor Electrolytes Neutropenic Diet Proph SCD's Dispo tele Visit type - Emergency Visit Emergency Visit: Yes ED Registration Date: 11/29/18 Care time: The patient presented to the Emergency Department on the above date and was hospitalized for further evaluation of their emergent condition. - New Patient This patient is new to me today: Yes Date on this admission: 11/29/18 - Critical Care Critical Care patient: No - Discharge Referral Referred to [facility] Med P.C.: No
[2018-11-29] MEDS: HEPARIN NA (PORCINE) 5,000 UNITS/ML 1ML VIAL SQ SCH (21:19)
[2018-11-29] MEDS: ATORVASTATIN CA 80 MG TABLET (FP) PO SCH (21:19)
[2018-11-30 06:10] LABS: HEMATOCRIT 30.4 % (35.4-49); HEMOGLOBIN 10.2 GM/dL (11.7-16.9); MCH 22.9 pg (25.7-33.7); MCHC 33.6 g/dl (32.0-35.9); MEAN CELL VOLUME 68.2 fl (80-96); MEAN PLT VOLUME 8.4 fl (7.5-11.1); PLATELET COUNT 161 K/MM3 (134-434); RBC 4.46 M/mm3 (4.00-5.60); WHITE BLOOD COUNT 2.2 K/mm3 (4.0-10.0)
[2018-11-30 06:38] LABS: ANION GAP 5 MMOL/L (8-16); BLOOD UREA NITROGEN 24 mg/dL (7-18); CHLORIDE 105 mmol/L (98-107); CO2 28 mmol/L (21-32); CREATININE 1.3 mg/dL (0.55-1.3); GLUCOSE,RANDOM 89 mg/dL (74-106); PHOSPHOROUS 4.1 mg/dL (2.5-4.9); POTASSIUM 3.7 mmol/L (3.5-5.1); SODIUM 138 mmol/L (136-145)
[2018-11-30] MEDS: HEPARIN NA (PORCINE) 5,000 UNITS/ML 1ML VIAL SQ SCH ×3 (07:02→22:39)
--- NOTE | 2018-11-30 08:43 | PN ---
Teaching Attending Note Name of Resident: Rivera Logan ATTENDING PHYSICIAN STATEMENT I saw and evaluated the patient. I reviewed the resident's note and discussed the case with the resident. I agree with the resident's findings and plan as documented. SUBJECTIVE: Patient is feeling better with no acute distress, wants to go home. OBJECTIVE: Vital Signs Temperature 97.8 F 11/30/18 06:00 Pulse Rate 62 11/30/18 06:00 Respiratory Rate 20 11/30/18 06:00 Blood Pressure 102/66 11/30/18 06:00 O2 Sat by Pulse Oximetry (%) 98 11/30/18 02:00 Initial Vital Signs Temp Pulse Resp BP Pulse Ox 98.2 F 92 H 16 85/49 L 100 11/28/18 21:58 11/28/18 21:58 11/28/18 21:58 11/28/18 21:58 11/28/18 21:58 GENERAL: NAD HEAD: Normal with no signs of trauma. EYES: EOMI , unicteric Sclera ENT: MMM NECK: supple. LUNGS: CTAB HEART: RRR nl s1s2 ABDOMEN: NDNT EXTREMITIES: 2+ pulses, warm, well-perfused, no edema. NEUROLOGICAL: cn-2-12 grossly intact, Right upper extremity strength 3/5. LUE 5/ 5. PSYCH: Normal mood, normal affect. CBCD WBC 2.2 K/mm3 (4.0-10.0) L 11/30/18 05:55 RBC 4.46 M/mm3 (4.00-5.60) 11/30/18 05:55 Hgb 10.2 GM/dL (11.7-16.9) L 11/30/18 05:55 Hct 30.4 % (35.4-49) L 11/30/18 05:55 MCV 68.2 fl (80-96) L 11/30/18 05:55 MCHC 33.6 g/dl (32.0-35.9) 11/30/18 05:55 RDW 18.0 % (11.9-15.9) H 11/30/18 05:55 Plt Count 161 K/MM3 (134-434) 11/30/18 05:55 MPV 8.4 fl (7.5-11.1) 11/30/18 05:55 CMP Sodium 138 mmol/L (136-145) 11/30/18 05:55 Potassium 3.7 mmol/L (3.5-5.1) 11/30/18 05:55 Chloride 105 mmol/L (98-107) 11/30/18 05:55 Carbon Dioxide 28 mmol/L (21-32) 11/30/18 05:55 Anion Gap 5 MMOL/L (8-16) L 11/30/18 05:55 BUN 24 mg/dL (7-18) H 11/30/18 05:55 Creatinine 1.3 mg/dL (0.55-1.3) 11/30/18 05:55 Creat Clearance w eGFR 56.90 (>60) 11/30/18 05:55 Random Glucose 89 mg/dL (74-106) 11/30/18 05:55 Calcium 8.0 mg/dL (8.5-10.1) L 11/30/18 05:55 Total Bilirubin 0.4 mg/dL (0.2-1) 11/29/18 08:00 AST 23 U/L (15-37) 11/29/18 08:00 ALT 26 U/L (13-61) 11/29/18 08:00 Alkaline Phosphatase 67 U/L (45-117) 11/29/18 08:00 Total Protein 6.0 g/dl (6.4-8.2) L 11/29/18 08:00 Albumin 3.3 g/dl (3.4-5.0) L 11/29/18 08:00 CARDIAC ENZYMES Creatine Kinase 201 U/L (26-308) 11/29/18 00:15 Troponin I < 0.02 ng/ml (0.00-0.05) 11/29/18 04:00 Current Medications Generic Name Dose Route Start Last Admin Trade Name Freq PRN Reason Stop Dose Admin Aspirin 81 mg 11/30/18 10:00 Ecotrin - PO DAILY [facility] Atorvastatin Calcium 80 mg 11/29/18 22:00 11/29/18 21:19 Lipitor - PO 80 mg HS COLLEEN Administration Clopidogrel Bisulfate 75 mg 11/30/18 10:00 Plavix - PO DAILY [facility] Heparin Sodium (Porcine) 5,000 unit 11/29/18 22:00 11/30/18 07:02 Heparin - SQ 5,000 unit TID COLLEEN Administration Sodium Chloride 1,000 mls @ 100 mls/hr 11/29/18 16:01 11/29/18 16:15 Normal Saline - IV 100 mls/hr ASDIR [facility] Administration Home Medications Medication Instructions Recorded Amlodipine Besylate 10 mg PO DAILY 11/29/18 Aspirin [Adult Aspirin] 81 mg PO DAILY 11/29/18 Atorvastatin Ca [Lipitor] 80 mg PO DAILY 11/29/18 Azilsartan Medoxomil [Edarbi] 80 mg PO DAILY 11/29/18 Chlorthalidone 25 mg PO DAILY 11/29/18 Metoprolol Succinate [Toprol Xl] 25 mg PO BID 11/29/18 ASSESSMENT AND PLAN: Patient is 58 y/o man with PMHx of recent stroke with residual R sided sensory loss and expressive aphasia, HTN, HLP, R vertebral artery stenosis who presented after a fall and possible syncope #Presyncope: likely due to orthostatic hypotension, BP meds on hold, will readjust the meds. will get his acidizer dr. Salcido to see the patient. has a loop recorder after his stroke. will check with dr. salcido. about the loop recorder report, Loop recorder since 04/06, d/w Dr. Louie: MRI/MRA of brain10/08 reviewed # h/o recent creptogenic stroke: Loop recorder reading pending , cont statin , and asa. # h/o Hypertension: now BP is on low side continue to hold meds # ADIA : due to volume depletion , continue IVF # microcytic anemia : start with iron studies # neutropenia : consider heme eval. if needed neutropenic precautions and neutropenic diet. SCDs and heparin
[2018-11-30] MEDS: ASPIRIN COATED 81 MG TABLET.EC PO SCH (10:34)
[2018-11-30] MEDS: CLOPIDOGREL BISULFATE 75 MG TABLET (FP) PO SCH (10:34)
--- NOTE | 2018-11-30 11:09 | CON.CARD ---
Consult Consult Specialty:: Cardiology Referred by:: Hospitalist Medicine Reason for Consultation:: Syncope - History of Present Illness Chief Complaint: Syncope History of Present Illness: 58 yo M with h/o HTN, HLD, CAD s/p AWMI, s/p Synergy 3.5x32 MORRIS mLAD 05/30/2016 , LV systolic dysfunction, CVA (04/06 with residual R sided weakness, visual deficits and expressive aphasia), post Medtr[employer] ILR last seen in office 2018 p/w syncopal event without prodromal symptoms. Patient reports shopping at grocery store and being found face down on floor by . Patient does not recall how he got onto floor, or does not recall head trauma. no hx of seizures. Found to be hypotensive, orthostatic, ADIA received IVF with improvement. Patient denies DEXTER, convulsions, vision change, palpitations, cough, wheezing, orthopena, PND, leg swelling/pain, N/V, F,C, CP, SOB, urinary complaints, hematuria, BPR, abdominal pain, diarrhea, constipation, lightheadedness, weakness, sensory changes. - History Source History Provided By: Patient, Medical Record Limitations to Obtaining History: Physical Impairment - Alcohol/Substance Use Hx Alcohol Use: No - Smoking History Smoking history: Never smoked Have you smoked in the past 12 months: No Aproximately how many cigarettes per day: 4 Home Medications - Allergies Allergies/Adverse Reactions: Allergies Allergy/AdvReac Type Severity Reaction Status Date / Time No Known Drug Allergies Allergy Verified 11/28/18 23:53 "PORK CHOPS' AdvReac Nausea Uncoded 11/28/18 23:53 - Home Medications Home Medications: Ambulatory Orders Amlodipine Besylate 10 mg PO DAILY 11/29/18 Aspirin [Adult Aspirin] 81 mg PO DAILY 11/29/18 Atorvastatin Ca [Lipitor] 80 mg PO DAILY 11/29/18 Azilsartan Medoxomil [Edarbi] 80 mg PO DAILY 11/29/18 Chlorthalidone 25 mg PO DAILY 11/29/18 Metoprolol Succinate [Toprol Xl] 25 mg PO BID 11/29/18 Review of Systems - Review of Systems Neurological: reports: Syncope Vital Signs: Vital Signs Temperature 97.6 F 11/30/18 10:00 Pulse Rate 62 11/30/18 10:00 Respiratory Rate 18 11/30/18 10:00 Blood Pressure 107/68 11/30/18 10:00 O2 Sat by Pulse Oximetry (%) 98 11/30/18 02:00 Constitutional: Yes: No Distress, Calm, Thin Neck: Yes: Supple Respiratory: Yes: Regular, CTA Bilaterally Gastrointestinal: Yes: Normal Bowel Sounds, Soft Cardiovascular: Yes: Regular Rate and Rhythm JVD: No Carotid Bruit: No Heart Sounds: Yes: S1, S2 Murmur: Yes: Systolic Murmur, Grade 1 Edema: No - Other Data Labs, Other Data: CBC, BMP 11/30/18 05:55 11/30/18 05:55 INR, PTT INR 1.06 (0.83-1.09) 11/29/18 08:00 NSR @ 75 LAE Ejection Fraction %: LVEF < 40 % Imaging - Results Chest X-ray: Report Reviewed (NAD) Cat Scan: Report Reviewed (HCT: Old bilateral cerebellar, left temporal, frontal , parietal and occipital strokes) Ultrasound: Report Reviewed (carotid 50-69% BARB stenosis) MRI: Report Reviewed (MRA: 85% BARB) Problem List - Problems (1) Coronary artery disease Code(s): I25.10 - ATHSCL HEART DISEASE OF [place] CORONARY ARTERY W/O ANG PCTRS Qualifiers: Coronary Disease-Associated Artery/Lesion type: [place] artery [place] vs. transplanted heart: [place] heart Associated angina: without angina Qualified Code(s): I25.10 - Atherosclerotic heart disease of [place] coronary artery without angina pectoris (2) Old anterior myocardial infarction Code(s): I25.2 - OLD MYOCARDIAL INFARCTION (3) Systolic dysfunction without heart failure Code(s): I51.89 - OTHER ILL-DEFINED HEART DISEASES (4) ADIA (acute kidney injury) Code(s): N17.9 - ACUTE KIDNEY FAILURE, UNSPECIFIED (5) Aphasia as late effect of cerebrovascular accident Code(s): I69.320 - APHASIA FOLLOWING CEREBRAL INFARCTION (6) Syncope and collapse Code(s): R55 - SYNCOPE AND COLLAPSE (7) Hyperlipidemia Code(s): E78.5 - HYPERLIPIDEMIA, UNSPECIFIED Qualifiers: Hyperlipidemia type: pure hypercholesterolemia Qualified Code(s): E78.00 - Pure hypercholesterolemia, unspecified; E78.0 - Pure hypercholesterolemia Assessment/Plan 11/29/2018 Echo: Moderate decreased LVEF 40% with anterior, anteroseptal and apical HK, normal RV fxn, mild TR, tr [place] IMPRESSION: Bilateral cerebellar chronic infarction/encephalomalacia. Large area of encephalomalacia/chronic infarct again seen involving the left temporal , frontal, parietal and occipital lobe with mild exvacuodilatation of the left lateral ventricle. No gross acute infarct or acute intracranial hemorrhage are identified. Correlate clinically and if needed correlation with MRI of the brain would be more sensitive. Doppler: Impression: There is mild intimal thickening in the right common carotid artery moderate size plaque at the right common carotid bifurcation/bulb with hemodynamically significant stenosis of 50-69%. Moderate intimal thickening in the left common carotid artery with suggestion of small soft plaques. Small-to- moderate sized plaques at the left common carotid bifurcation and bulb without evidence of hemodynamically significant stenosis. Reversal of flow in visualized portion of the proximal right vertebral artery. The rest of the right vertebral artery was not visualized. Differential diagnosis includes a subclavian steal versus distal right vertebral artery obstruction. Correlation with CTA of the neck including the aortic arch is needed for further evaluation. 1. Syncope with orthostasis 2. Acute on CKD (pre-renal) 3. Cryptogenic stroke with residual R sided sensory loss, visual deficits and expressive aphasia 4. 85% BARB stenosis 5. s/p ILR 6. CAD s/p AWMI PCI LAD 7. HTN 8. Hyperlipidemia 9. Neutropenia and anemia 10. LV systolic dysfunction (moderate) P:1. Resume Toprol XL 25 qd, ASA 81 qd, Lipitor 80 qd, resume ARB once renal function stabilizes as hemodynamics tolerate, d/c chlorthalidone and amlodipine for now 2. Await ILR interrogration to exclude bradyarrhythmia, pauses 3. Monitor renal recovery, repeat carotid US in several months to assess progression of carotid disease 4. Thank you for consultative opportunity
--- NOTE | 2018-11-30 13:11 | PN ---
Progress Note (short form) - Note Progress Note: 58 yo M with h/o HTN, HLD, CVA (04/06 with residual R sided weakness and expressive aphasia) who p/w syncopal event. Patient reports episode of syncope this AM. Patient reports shopping at grocery store this AM (unknown time), and being found face down on floor by . Patient does not recall how he got onto floor, or does not recall head trauma. no hx of seizures. Found to be hypotensive. Patient denies DEXTER, convulsions, vision change, palpitations, cough, wheezing, orthopena, PND, leg swelling/pain, N/V, F,C, CP, SOB, urinary complaints, hematuria, BPR, abdominal pain, diarrhea, constipation, lightheadedness, weakness, sensory changes. FU : no new events MRA noted, R sided ICA stenosis has loop awaiting medtronic eval MRA : Impression: Mild atherosclerotic narrowing the right M1 segment. Focal likely hemodynamically significant stenosis in the distal left M1 segment of approximately 50%. There is also focal moderate narrowing/stenosis in the mid basilar artery, likely hemodynamically significant, approximately 50%. Very attenuated flow seen in the proximal left posterior cerebral artery only. Correlation with CT angiogram of the head is recommended for further evaluation Impression: No gross focal stenosis, aneurysm, major artery cutoff or vascular malformation is identified within the central intracranial arterial circulation. Impression. Atherosclerotic plaque involving proximal right internal carotid artery, with severe stenosis at the origin of the right internal carotid artery approximately 85%. Patent right internal, external carotid arteries. Normal bifurcation of the left common cardiac artery. No evidence of hemodynamic stenotic lesion. No flow is seen in the distal V2 segment of the right vertebral artery at the level of C2-C3. Dominant left vertebral artery, hypoplastic right vertebral artery. Stenotic lesion is seen in the basilar artery. CT HD IMPRESSION: Bilateral cerebellar chronic infarction/encephalomalacia. Large area of encephalomalacia/chronic infarct again seen involving the left temporal , frontal, parietal and occipital lobe with mild exvacuodilatation of the left lateral ventricle. No gross acute infarct or acute intracranial hemorrhage are identified. Correlate clinically and if needed correlation with MRI of the brain would be more sensitive. Doppler: Impression: There is mild intimal thickening in the right common carotid artery moderate size plaque at the right common carotid bifurcation/bulb with hemodynamically significant stenosis of 50-69%. Moderate intimal thickening in the left common carotid artery with suggestion of small soft plaques. Small-to- moderate sized plaques at the left common carotid bifurcation and bulb without evidence of hemodynamically significant stenosis. Reversal of flow in visualized portion of the proximal right vertebral artery. The rest of the right vertebral artery was not visualized. Differential diagnosis includes a subclavian steal versus distal right vertebral artery obstruction. Correlation with CTA of the neck including the aortic arch is needed for further evaluation. - Alcohol/Substance Use Hx Alcohol Use: No - Smoking History Smoking history: Never smoked Have you smoked in the past 12 months: No Aproximately how many cigarettes per day: 4 Home Medications - Allergies Allergies/Adverse Reactions: Allergies Allergy/AdvReac Type Severity Reaction Status Date / Time No Known Drug Allergies Allergy Verified 11/28/18 23:53 "PORK CHOPS' AdvReac Nausea Uncoded 11/28/18 23:53 - Home Medications Home Medications: Ambulatory Orders Amlodipine Besylate 10 mg PO DAILY 11/29/18 Aspirin [Adult Aspirin] 81 mg PO DAILY 11/29/18 Atorvastatin Ca [Lipitor] 80 mg PO DAILY 11/29/18 Azilsartan Medoxomil [Edarbi] 80 mg PO DAILY 11/29/18 Chlorthalidone 25 mg PO DAILY 11/29/18 Metoprolol Succinate [Toprol Xl] 25 mg PO BID 11/29/18 Physical Exam-Neuro Vital Signs: Vital Signs Temperature 97.6 F 11/30/18 10:00 Pulse Rate 62 11/30/18 10:00 Respiratory Rate 18 11/30/18 10:00 Blood Pressure 107/68 11/30/18 10:00 O2 Sat by Pulse Oximetry (%) 98 11/30/18 10:00 Labs: CBC, BMP 11/29/18 08:00 11/29/18 08:00 INR, PTT INR 1.06 (0.83-1.09) 11/29/18 08:00 Imaging - Results Cat Scan: Report Reviewed Ultrasound: Report Reviewed Problem List - Problems (1) Aphasia as late effect of cerebrovascular accident Code(s): I69.320 - APHASIA FOLLOWING CEREBRAL INFARCTION (2) ADIA (acute kidney injury) Code(s): N17.9 - ACUTE KIDNEY FAILURE, UNSPECIFIED (3) Syncope and collapse Code(s): R55 - SYNCOPE AND COLLAPSE Assessment/Plan 58 yo M with h/o HTN, HLD, CVA (04/06 with residual R sided weakness and expressive aphasia) who p/w syncopal event. Patient reports episode of syncope this AM. Patient reports shopping at grocery store this AM (unknown time), and being found face down on floor by . Patient does not recall how he got onto floor, or does not recall head trauma. no hx of seizures. Found to be hypotensive. CT HD IMPRESSION: Bilateral cerebellar chronic infarction/encephalomalacia. Large area of encephalomalacia/chronic infarct again seen involving the left temporal , frontal, parietal and occipital lobe with mild exvacuodilatation of the left lateral ventricle. No gross acute infarct or acute intracranial hemorrhage are identified. Correlate clinically and if needed correlation with MRI of the brain would be more sensitive. Doppler: Impression: There is mild intimal thickening in the right common carotid artery moderate size plaque at the right common carotid bifurcation/bulb with hemodynamically significant stenosis of 50-69%. Moderate intimal thickening in the left common carotid artery with suggestion of small soft plaques. Small-to- moderate sized plaques at the left common carotid bifurcation and bulb without evidence of hemodynamically significant stenosis. Reversal of flow in visualized portion of the proximal right vertebral artery. The rest of the right vertebral artery was not visualized. Differential diagnosis includes a subclavian steal versus distal right vertebral artery obstruction. Correlation with CTA of the neck including the aortic arch is needed for further evaluation. AP : Presyncope in setting + VASC RF and hypotension , the latter which is the most likely culprit. Seizure possible but less likely in this stetting. Still unclear mechanism of his prior cortical stroke. R carotid disease may have contributed to hypoperfusion though otherwise appaers aysmptomatic (prior L sided stroke) will need FU DOPPLER in 3-6 months to monitor FU BP , orthostatics. ASA and statin in meantime. No AED for now. DR DICK Problem List - Problems (1) Aphasia as late effect of cerebrovascular accident Code(s): I69.320 - APHASIA FOLLOWING CEREBRAL INFARCTION (2) ADIA (acute kidney injury) Code(s): N17.9 - ACUTE KIDNEY FAILURE, UNSPECIFIED (3) Syncope and collapse Code(s): R55 - SYNCOPE AND COLLAPSE
--- NOTE | 2018-11-30 15:33 | PN ---
Physical Exam: SUBJECTIVE: Patient seen and examined at bedside. No acute events overnight. Eager to go home. OBJECTIVE: Vital Signs Period Temp Pulse Resp BP Sys/Fox Pulse Ox Last 24 Hr 97.6 F-98.2 F 62-68 16-20 101-119/60-81 98-98 GENERAL: No acute distress.. AAOx3 HEAD: Normal with no signs of trauma. EYES: EOMI Sclera clar ENT: MMM NECK: Trachea midline, full range of motion, supple. LUNGS: CTAB HEART: RRR nl s1s2 ABDOMEN: NDNT EXTREMITIES: 2+ pulses, warm, well-perfused, no edema. NEUROLOGICAL: Strength noticeably reduced Right upper extremity ~3/5 strength. Left upper extremity 5/5 strength. SILT left side. Sensation reduced right side body. Strength 4/5 right lower extremity. Strength 5/5 left lower extremity. Neuro exam unchanged PSYCH: Normal mood, normal affect. Laboratory Results - last 24 hr 11/29/18 11/30/18 11/30/18 08:20 05:55 05:55 WBC 2.2 L RBC 4.46 Hgb 10.2 L Hct 30.4 L MCV 68.2 L MCH 22.9 L MCHC 33.6 RDW 18.0 H Plt Count 161 MPV 8.4 Sodium Potassium Chloride Carbon Dioxide Anion Gap BUN Creatinine Creat Clearance w eGFR Random Glucose Calcium Phosphorus Magnesium Iron Cancelled Transferrin 156 L 11/30/18 05:55 WBC RBC Hgb Hct MCV MCH MCHC RDW Plt Count MPV Sodium 138 Potassium 3.7 Chloride 105 Carbon Dioxide 28 Anion Gap 5 L BUN 24 H Creatinine 1.3 Creat Clearance w eGFR 56.90 Random Glucose 89 Calcium 8.0 L Phosphorus 4.1 Magnesium 2.0 Iron Transferrin Active Medications Generic Name Dose Route Start Last Admin Trade Name Freq PRN Reason Stop Dose Admin Aspirin 81 mg 11/30/18 10:00 11/30/18 10:34 Ecotrin - PO 81 mg DAILY [facility]LO[facility] Administration Atorvastatin Calcium 80 mg 11/29/18 22:00 11/29/18 21:19 Lipitor - PO 80 mg HS COLLEEN Administration Clopidogrel Bisulfate 75 mg 11/30/18 10:00 11/30/18 10:34 Plavix - PO 75 mg DAILY [facility]LEEN Administration Heparin Sodium (Porcine) 5,000 unit 11/29/18 22:00 11/30/18 14:15 Heparin - SQ 5,000 unit TID COLLEEN Administration Sodium Chloride 1,000 mls @ 100 mls/hr 11/29/18 16:01 11/29/18 16:15 Normal Saline - IV 100 mls/hr ASDIR COLLEEN Administration MRA : Impression: Mild atherosclerotic narrowing the right M1 segment. Focal likely hemodynamically significant stenosis in the distal left M1 segment of approximately 50%. There is also focal moderate narrowing/stenosis in the mid basilar artery, likely hemodynamically significant, approximately 50%. Very attenuated flow seen in the proximal left posterior cerebral artery only. Correlation with CT angiogram of the head is recommended for further evaluation Impression: No gross focal stenosis, aneurysm, major artery cutoff or vascular malformation is identified within the central intracranial arterial circulation. Impression. Atherosclerotic plaque involving proximal right internal carotid artery, with severe stenosis at the origin of the right internal carotid artery approximately 85%. Patent right internal, external carotid arteries. Normal bifurcation of the left common cardiac artery. No evidence of hemodynamic stenotic lesion. No flow is seen in the distal V2 segment of the right vertebral artery at the level of C2-C3. Dominant left vertebral artery, hypoplastic right vertebral artery. Stenotic lesion is seen in the basilar artery. ASSESSMENT/PLAN: 58 yo M with h/o HTN, HLD, CVA (04/06 with residual R sided weakness and expressive aphasia) who p/w syncopal event # Fall likely 2/2 syncopal episode -EKG normal sinus rythym with no specific ST, T changes QTc: 434ms -echo---> Anterior, anteroseptal,and apical wall hypokinesis. EF 40%. -Brain MRI - patient has hx of CVA r/o new onset stroke or bleeding -Cartoid Doppler ---> see above for impression -Cardiac and BP monitoring. Has a loop recorder after his stroke. will see if any cardiac event during recent fall episode. [employer]ive [employer]preter made aware -Fall precautions -Swallow evaluation at bedside Cardiology Dr Low on board---> Continue Toprol XL 25 bid, ASA 81 qd, Lipitor 80 qd, ARB, d/c chlorthalidone and amlodipine for now. Await ILR interrogration to exclude bradyarrhythmia, pauses. Monitor renal recovery, repeat carotid US in several months to assess progression of carotid disease Hypotension -Improving with I.V fluids. Will continue ADIA - likely pre-renal due to dehydration -BUN/Creatinine 30/1.7 improving. Continue to trend -Cr - 1.1 baseline Hypertension -will hold med because patient came in hypotensive -MEDS Verified with Hyperlipidemia * Statin resumed History of Stroke * Ct scan of head ---. See above for impression. * Brain MRI---> No gross focal stenosis, aneurysm, major artery cutoff or vascular malformation is identified within the central intracranial arterial circulation. Impression. Atherosclerotic plaque involving proximal right internal carotid artery, with severe stenosis at the origin of the right internal carotid artery approximately 85%. Patent right internal, external carotid arteries. Normal bifurcation of the left common cardiac artery. No evidence of hemodynamic stenotic lesion. No flow is seen in the distal V2 segment of the right vertebral artery at the level of C2-C3. Dominant left vertebral artery, hypoplastic right vertebral artery. Stenotic lesion is seen in the basilar artery. Dr Louie on board.Most likely 2/2 presyncope in setting + VASC RF and hypotension , the latter which is the most likely culprit. Seizure possible but less likely in this stetting. Still unclear mechanism of his prior cortical stroke. carotid disease may have contributed to hypoperfusion though non surgical at this juncture. R sided carotid disease asympomatic FU BP , orthostatics. restart ASA and statin in meantime. No AED for now. FEN NS@100cc/hr Monitor Electrolytes Neutropenic Diet Proph SCD's Dispo tele Visit type - Emergency Visit Emergency Visit: Yes ED Registration Date: 11/30/18 Care time: The patient presented to the Emergency Department on the above date and was hospitalized for further evaluation of their emergent condition. - New Patient This patient is new to me today: No - Critical Care Critical Care patient: No - Discharge Referral Referred to [facility] No
[2018-11-30] MEDS: SODIUM CHLORIDE 1,000 ML IV SCH (16:26)
[2018-11-30] MEDS: ATORVASTATIN CA 80 MG TABLET (FP) PO SCH (22:39)
[2018-12-01 04:13] LABS: SERUM IRON SATURATION 46 % (15-55); TOTAL IRON BINDING CAPACITY 194 ug/dL (250-450); UIBC 104 ug/dL (111-343)
[2018-12-01] MEDS: HEPARIN NA (PORCINE) 5,000 UNITS/ML 1ML VIAL SQ SCH ×2 (06:21→14:41)
[2018-12-01 08:08] LABS: BASO % 0.4 % (0-2.0); EOS % 2.7 % (0-4.5); HEMOGLOBIN 10.3 GM/dL (11.7-16.9); LYMPH % 59.7 % (8-40); MCH 22.7 pg (25.7-33.7); MCHC 33.4 g/dl (32.0-35.9); MEAN PLT VOLUME 8.6 fl (7.5-11.1); MONO % 9.8 % (3.8-10.2); NEUT % 27.4 % (42.8-82.8); PLATELET COUNT 177 K/MM3 (134-434); RBC 4.56 M/mm3 (4.00-5.60); RDW 17.8 % (11.9-15.9); WHITE BLOOD COUNT 2.9 K/mm3 (4.0-10.0)
[2018-12-01 08:26] LABS: ANION GAP 5 MMOL/L (8-16); BLOOD UREA NITROGEN 18 mg/dL (7-18); CALCIUM 8.5 mg/dL (8.5-10.1); CHLORIDE 104 mmol/L (98-107); CO2 29 mmol/L (21-32); CREATININE 1.2 mg/dL (0.55-1.3); GLUCOSE,RANDOM 81 mg/dL (74-106); MAGNESIUM 2.1 mg/dL (1.8-2.4); PHOSPHOROUS 4.2 mg/dL (2.5-4.9); POTASSIUM 3.7 mmol/L (3.5-5.1); SODIUM 138 mmol/L (136-145)
--- NOTE | 2018-12-01 09:30 | PN ---
Progress Note, Physician History of Present Illness: No further near or true syncope, hemodynamics stable, no events on telemetry. - Current Medication List Current Medications: Active Medications Aspirin (Ecotrin -) 81 mg PO DAILY [facility] Last Admin: 11/30/18 10:34 Dose: 81 mg Atorvastatin Calcium (Lipitor -) 80 mg PO HS [facility] Last Admin: 11/30/18 22:39 Dose: 80 mg Clopidogrel Bisulfate (Plavix -) 75 mg PO DAILY [facility] Last Admin: 11/30/18 10:34 Dose: 75 mg Heparin Sodium (Porcine) (Heparin -) 5,000 unit SQ TID [facility] Last Admin: 12/01/18 06:21 Dose: 5,000 unit Sodium Chloride (Normal Saline -) 1,000 mls @ 100 mls/hr IV ASDIR [facility] Last Admin: 11/30/18 16:26 Dose: 100 mls/hr - Objective Vital Signs: Vital Signs Temperature 97.8 F 12/01/18 06:00 Pulse Rate 63 12/01/18 06:00 Respiratory Rate 18 12/01/18 06:00 Blood Pressure 110/62 12/01/18 06:00 O2 Sat by Pulse Oximetry (%) 98 12/01/18 02:00 Constitutional: Yes: No Distress, Calm, Thin Neck: Yes: Supple Cardiovascular: Yes: Regular Rate and Rhythm Respiratory: Yes: Regular, Diminished Gastrointestinal: Yes: Normal Bowel Sounds, Soft Edema: No Neurological: Yes: Pre-Existing Deficit Labs: CBC, BMP 12/01/18 06:17 12/01/18 06:17 INR, PTT INR 1.06 (0.83-1.09) 11/29/18 08:00 Problem List - Problems (1) Coronary artery disease Code(s): I25.10 - ATHSCL HEART DISEASE OF [place] CORONARY ARTERY W/O ANG PCTRS Qualifiers: Coronary Disease-Associated Artery/Lesion type: [place] artery [place] vs. transplanted heart: [place] heart Associated angina: without angina Qualified Code(s): I25.10 - Atherosclerotic heart disease of [place] coronary artery without angina pectoris (2) Old anterior myocardial infarction Code(s): I25.2 - OLD MYOCARDIAL INFARCTION (3) Systolic dysfunction without heart failure Code(s): I51.89 - OTHER ILL-DEFINED HEART DISEASES (4) ADIA (acute kidney injury) Code(s): N17.9 - ACUTE KIDNEY FAILURE, UNSPECIFIED (5) Aphasia as late effect of cerebrovascular accident Code(s): I69.320 - APHASIA FOLLOWING CEREBRAL INFARCTION (6) Syncope and collapse Code(s): R55 - SYNCOPE AND COLLAPSE (7) Hyperlipidemia Code(s): E78.5 - HYPERLIPIDEMIA, UNSPECIFIED Qualifiers: Hyperlipidemia type: pure hypercholesterolemia Qualified Code(s): E78.00 - Pure hypercholesterolemia, unspecified; E78.0 - Pure hypercholesterolemia Assessment/Plan 11/29/2018 Echo: Moderate decreased LVEF 40% with anterior, anteroseptal and apical HK, normal RV fxn, mild TR, tr GA IMPRESSION: Bilateral cerebellar chronic infarction/encephalomalacia. Large area of encephalomalacia/chronic infarct again seen involving the left temporal , frontal, parietal and occipital lobe with mild exvacuodilatation of the left lateral ventricle. No gross acute infarct or acute intracranial hemorrhage are identified. Correlate clinically and if needed correlation with MRI of the brain would be more sensitive. Doppler: Impression: There is mild intimal thickening in the right common carotid artery moderate size plaque at the right common carotid bifurcation/bulb with hemodynamically significant stenosis of 50-69%. Moderate intimal thickening in the left common carotid artery with suggestion of small soft plaques. Small-to- moderate sized plaques at the left common carotid bifurcation and bulb without evidence of hemodynamically significant stenosis. Reversal of flow in visualized portion of the proximal right vertebral artery. The rest of the right vertebral artery was not visualized. Differential diagnosis includes a subclavian steal versus distal right vertebral artery obstruction. Correlation with CTA of the neck including the aortic arch is needed for further evaluation. 1. Syncope with orthostasis 2. Acute on CKD (pre-renal) 3. Cryptogenic stroke with residual R sided sensory loss, visual deficits and expressive aphasia 4. 85% BARB stenosis 5. s/p ILR 6. CAD s/p AWMI PCI LAD 7. HTN 8. Hyperlipidemia 9. Neutropenia and anemia 10. LV systolic dysfunction (moderate) P:1. Resume Toprol XL 25 qd, ASA 81 qd, Plavix 75 qd, Lipitor 80 qd, resume ARB once renal function stabilizes as hemodynamics tolerate, d/c chlorthalidone and amlodipine for now 2. Await ILR interrogration to exclude bradyarrhythmia, pauses 3. Monitor renal recovery, repeat carotid US in several months to assess progression of carotid disease
[2018-12-01] MEDS ORDERED: metoPROLOL SUCCINATE 25 MG TAB.SR.24H (FP) PO SCH (10:00)
[2018-12-01 10:26] VITALS: BP 131/82; PULSE 66; TEMP 97.9
[2018-12-01] MEDS: CLOPIDOGREL BISULFATE 75 MG TABLET (FP) PO SCH (10:26)
[2018-12-01] MEDS: ASPIRIN COATED 81 MG TABLET.EC PO SCH (10:26)
--- NOTE | 2018-12-01 11:57 | PN ---
Progress Note (short form) - Note Progress Note: 58 yo M with h/o HTN, HLD, CVA (04/06 with residual R sided weakness and expressive aphasia) who p/w syncopal event. Patient reports episode of syncope this AM. Patient reports shopping at grocery store this AM (unknown time), and being found face down on floor by . Patient does not recall how he got onto floor, or does not recall head trauma. no hx of seizures. Found to be hypotensive. Patient denies DEXTER, convulsions, vision change, palpitations, cough, wheezing, orthopena, PND, leg swelling/pain, N/V, F,C, CP, SOB, urinary complaints, hematuria, BPR, abdominal pain, diarrhea, constipation, lightheadedness, weakness, sensory changes. FU : no new events MRA noted, R sided ICA stenosis has loop awaiting medtronic eval P MRA : Impression: Mild atherosclerotic narrowing the right M1 segment. Focal likely hemodynamically significant stenosis in the distal left M1 segment of approximately 50%. There is also focal moderate narrowing/stenosis in the mid basilar artery, likely hemodynamically significant, approximately 50%. Very attenuated flow seen in the proximal left posterior cerebral artery only. Correlation with CT angiogram of the head is recommended for further evaluation Impression: No gross focal stenosis, aneurysm, major artery cutoff or vascular malformation is identified within the central intracranial arterial circulation. Impression. Atherosclerotic plaque involving proximal right internal carotid artery, with severe stenosis at the origin of the right internal carotid artery approximately 85%. Patent right internal, external carotid arteries. Normal bifurcation of the left common cardiac artery. No evidence of hemodynamic stenotic lesion. No flow is seen in the distal V2 segment of the right vertebral artery at the level of C2-C3. Dominant left vertebral artery, hypoplastic right vertebral artery. Stenotic lesion is seen in the basilar artery. CT HD IMPRESSION: Bilateral cerebellar chronic infarction/encephalomalacia. Large area of encephalomalacia/chronic infarct again seen involving the left temporal , frontal, parietal and occipital lobe with mild exvacuodilatation of the left lateral ventricle. No gross acute infarct or acute intracranial hemorrhage are identified. Correlate clinically and if needed correlation with MRI of the brain would be more sensitive. Doppler: Impression: There is mild intimal thickening in the right common carotid artery moderate size plaque at the right common carotid bifurcation/bulb with hemodynamically significant stenosis of 50-69%. Moderate intimal thickening in the left common carotid artery with suggestion of small soft plaques. Small-to- moderate sized plaques at the left common carotid bifurcation and bulb without evidence of hemodynamically significant stenosis. Reversal of flow in visualized portion of the proximal right vertebral artery. The rest of the right vertebral artery was not visualized. Differential diagnosis includes a subclavian steal versus distal right vertebral artery obstruction. Correlation with CTA of the neck including the aortic arch is needed for further evaluation. - Alcohol/Substance Use Hx Alcohol Use: No - Smoking History Smoking history: Never smoked Have you smoked in the past 12 months: No Aproximately how many cigarettes per day: 4 Home Medications - Allergies Allergies/Adverse Reactions: Allergies Allergy/AdvReac Type Severity Reaction Status Date / Time No Known Drug Allergies Allergy Verified 11/28/18 23:53 "PORK CHOPS' AdvReac Nausea Uncoded 11/28/18 23:53 - Home Medications Home Medications: Ambulatory Orders Amlodipine Besylate 10 mg PO DAILY 11/29/18 Aspirin [Adult Aspirin] 81 mg PO DAILY 11/29/18 Atorvastatin Ca [Lipitor] 80 mg PO DAILY 11/29/18 Azilsartan Medoxomil [Edarbi] 80 mg PO DAILY 11/29/18 Chlorthalidone 25 mg PO DAILY 11/29/18 Metoprolol Succinate [Toprol Xl] 25 mg PO BID 11/29/18 Physical Exam-Neuro Vital Signs: Vital Signs Temperature 97.9 F 12/01/18 10:00 Pulse Rate 66 12/01/18 10:00 Respiratory Rate 18 12/01/18 10:00 Blood Pressure 131/82 12/01/18 10:00 O2 Sat by Pulse Oximetry (%) 98 12/01/18 02:00 Labs: CBC, BMP 11/29/18 08:00 11/29/18 08:00 INR, PTT INR 1.06 (0.83-1.09) 11/29/18 08:00 Imaging - Results Cat Scan: Report Reviewed Ultrasound: Report Reviewed Problem List - Problems (1) Aphasia as late effect of cerebrovascular accident Code(s): I69.320 - APHASIA FOLLOWING CEREBRAL INFARCTION (2) ADIA (acute kidney injury) Code(s): N17.9 - ACUTE KIDNEY FAILURE, UNSPECIFIED (3) Syncope and collapse Code(s): R55 - SYNCOPE AND COLLAPSE Assessment/Plan 58 yo M with h/o HTN, HLD, CVA (04/06 with residual R sided weakness and expressive aphasia) who p/w syncopal event. Patient reports episode of syncope this AM. Patient reports shopping at grocery store this AM (unknown time), and being found face down on floor by . Patient does not recall how he got onto floor, or does not recall head trauma. no hx of seizures. Found to be hypotensive. CT HD IMPRESSION: Bilateral cerebellar chronic infarction/encephalomalacia. Large area of encephalomalacia/chronic infarct again seen involving the left temporal , frontal, parietal and occipital lobe with mild exvacuodilatation of the left lateral ventricle. No gross acute infarct or acute intracranial hemorrhage are identified. Correlate clinically and if needed correlation with MRI of the brain would be more sensitive. Doppler: Impression: There is mild intimal thickening in the right common carotid artery moderate size plaque at the right common carotid bifurcation/bulb with hemodynamically significant stenosis of 50-69%. Moderate intimal thickening in the left common carotid artery with suggestion of small soft plaques. Small-to- moderate sized plaques at the left common carotid bifurcation and bulb without evidence of hemodynamically significant stenosis. Reversal of flow in visualized portion of the proximal right vertebral artery. The rest of the right vertebral artery was not visualized. Differential diagnosis includes a subclavian steal versus distal right vertebral artery obstruction. Correlation with CTA of the neck including the aortic arch is needed for further evaluation. AP : Presyncope in setting + VASC RF and hypotension , the latter which is the most likely culprit. Seizure possible but less likely in this stetting. Still unclear mechanism of his prior cortical stroke. Loop interogation P R carotid disease may have contributed to hypoperfusion though otherwise appaers asymptomatic (prior L sided stroke) will need FU DOPPLER in 3-6 months to monitor FU BP , orthostatics. plavix/ASA and statin in meantime. No AED for now. neuro cleared and can FU as outpt DR DICK Problem List - Problems (1) Aphasia as late effect of cerebrovascular accident Code(s): I69.320 - APHASIA FOLLOWING CEREBRAL INFARCTION (2) ADIA (acute kidney injury) Code(s): N17.9 - ACUTE KIDNEY FAILURE, UNSPECIFIED (3) Syncope and collapse Code(s): R55 - SYNCOPE AND COLLAPSE
--- NOTE | 2018-12-01 15:15 | DS ---
Physical Exam: SUBJECTIVE: Patient seen and examined at bedside. No acute events overnight. OBJECTIVE: Vital Signs Period Temp Pulse Resp BP Sys/Fox Pulse Ox Last 24 Hr 97.6 F-98.1 F 63-87 18-18 110-138/62-82 98-98 PHYSICAL EXAM GENERAL: No acute distress. HEAD: Normal with no signs of trauma. EYES: EOMI Sclera clar ENT: MMM NECK: Trachea midline, full range of motion, supple. LUNGS: Clear to auscultation b/l HEART: RRR nl s1s2 ABDOMEN: NDNT EXTREMITIES: 2+ pulses, warm, well-perfused, no edema. NEUROLOGICAL: Strength noticeably reduced Right upper extremity ~3/5 strength. Left upper extremity 5/5 strength. SILT left side. Sensation reduced right side body. Strength 4/5 right lower extremity. Strength 5/5 left lower extremity. Neuro exam unchanged PSYCH: Normal mood, normal affect. LABS Laboratory Results - last 24 hr 11/30/18 12/01/18 12/01/18 10:40 06:17 06:17 WBC 2.9 L RBC 4.56 Hgb 10.3 L Hct 31.0 L MCV 68.0 L MCH 22.7 L MCHC 33.4 RDW 17.8 H Plt Count 177 MPV 8.6 Absolute Neuts (auto) 0.8 L Neutrophils % 27.4 L D Lymphocytes % 59.7 H Monocytes % 9.8 Eosinophils % 2.7 Basophils % 0.4 Nucleated RBC % 0 Sodium 138 Potassium 3.7 Chloride 104 Carbon Dioxide 29 Anion Gap 5 L BUN 18 Creatinine 1.2 Creat Clearance w eGFR > 60 Random Glucose 81 Calcium 8.5 Phosphorus 4.2 Magnesium 2.1 Iron 90 TIBC 194 L Iron Saturation 46 HOSPITAL COURSE: Date of Admission:11/30/18 Pt is a 58 y/o M with a h/o HTN, HLD, CVA (04/06 with residual R sided weakness and expressive aphasia) who presented to [facility] due to syncope. Pt underwent a CT of his head which revealed " Bilateral cerebellar chronic infarction/ encephalomalacia. Large area of encephalomalacia/chronic infarct again seen involving the left temporal, frontal, parietal and occipital lobe with mild exvacuodilatation of the left lateral ventricle. No gross acute infarct or acute intracranial hemorrhage are identified. Correlate clinically and if needed correlation with MRI of the brain would be more sensitive." Pt also underwent a carotid dopple which revealed " mild intimal thickening in the right common carotid artery moderate size plaque at the right common carotid bifurcation/bulb with hemodynamically significant stenosis of 50-69%. Moderate intimal thickening in the left common carotid artery with suggestion of small soft plaques. [id number] sized plaques at the left common carotid bifurcation and bulb without evidence of hemodynamically significant stenosis. Reversal of flow in visualized portion of the proximal right vertebral artery. The rest of the right vertebral artery was not visualized. Differential diagnosis includes a subclavian steal versus distal right vertebral artery obstruction. Correlation with CTA of the neck including the aortic arch is needed for further evaluation." An echo revealed anterior, anteroseptal, and apical wall hypokinesis with an EF of 40%. Furthermore, pt was noted to have an ADIA on admission with a peak Cr of 2.1 ultimately dropping down to 1.2. Pt's chlorthalidone and amlodipine were held due to pt's h/o syncope and + orthostatic vital sign. Pt was discharged home on ASA 81, plavix 75, lipitor 80 , metoprolol 25 xl daily and edarbi 80 mg daily. Date of Discharge: 12/01/18 Minutes to complete discharge: 35 Discharge Summary Reason For Visit: ACUTE KIDNEY INJURY SYNCOPE AND COLLAPSE Current Active Problems Leukopenia (Acute) Aphasia as late effect of cerebrovascular accident (Chronic) Coronary artery disease (Chronic) Hyperlipidemia (Chronic) Old anterior myocardial infarction (Chronic) Systolic dysfunction without heart failure (Chronic) Condition: Improved - Instructions Diet, Activity, Other Instructions: You presented to the hospital due to syncope. Please follow up with your Neurologist, brain doctor, this week. Dr Louie. You will need a carotid ultrasound in 3-6 months to monitor the plaque found in your R carotid. Please continue to see and follow up with your Iron Guardrail Installer, Dr Tashi Low. Please see Dr Low this week. Your loop recorder will need to be interrogated to see if you had any abnormal heart rhythms which may have caused your syncope. Please follow up this week with the blood doctor, Dr Phan, to further work up why you have a low white blood cell count. We have made changes to your home medications: Please STOP taking Chlorthalidone, Amlodipine, and Lasix. Please take Edarbi 80 MG Daily for your high blood pressure Please take Toprol XL 12.5mg DAILY Please return to the emergency department with any new or worsening symptoms or concerns. Please follow up with your primary care physician and neurology within 72 hours. Monitor your blood pressure at home and if it ever lower than 90/50 you should drink water and see your doctor for possible adjustments of your blood pressure medication. Disposition: HOME - Home Medications Comprehensive Discharge Medication List: Ambulatory Orders Aspirin Coated [Ecotrin -] 81 mg PO DAILY tablet.ec 12/01/18 Atorvastatin Ca [Lipitor] 80 mg PO HS tablet 12/01/18 Azilsartan Medoxomil [Edarbi] 80 mg PO DAILY #30 tablet 12/01/18 Clopidogrel Bisulfate [Plavix -] 75 mg PO DAILY tablet 12/01/18 Metoprolol Succinate [Toprol XL -] 25 mg PO DAILY tab.sr.24h 12/01/18 This patient is new to me today: No Emergency Visit: Yes ED Registration Date: 11/30/18 Care time: The patient presented to the Emergency Department on the above date and was hospitalized for further evaluation of their emergent condition. Critical Care patient: No - Discharge Referral Referred to [facility] Med [facility].: No
--- NOTE | 2018-12-01 17:55 | PN ---
Teaching Attending Note Name of Resident: Rivera Logan ATTENDING PHYSICIAN STATEMENT I saw and evaluated the patient. I reviewed the resident's note and discussed the case with the resident. I agree with the resident's findings and plan as documented. SUBJECTIVE: OBJECTIVE: Vital Signs Temperature 97.9 F 12/01/18 10:00 Pulse Rate 66 12/01/18 10:00 Respiratory Rate 18 12/01/18 10:00 Blood Pressure 131/82 12/01/18 10:00 O2 Sat by Pulse Oximetry (%) 98 12/01/18 10:00 GENERAL: NAD HEAD: Normal with no signs of trauma. EYES: EOMI , unicteric Sclera ENT: MMM NECK: supple. LUNGS: CTAB HEART: RRR nl s1s2 ABDOMEN: NDNT EXTREMITIES: 2+ pulses, warm, well-perfused, no edema. NEUROLOGICAL: cn-2-12 grossly intact, Right upper extremity strength 3/5. LUE 5/ 5. PSYCH: Normal mood, normal affect. CBCD WBC 2.9 K/mm3 (4.0-10.0) L 12/01/18 06:17 RBC 4.56 M/mm3 (4.00-5.60) 12/01/18 06:17 Hgb 10.3 GM/dL (11.7-16.9) L 12/01/18 06:17 Hct 31.0 % (35.4-49) L 12/01/18 06:17 MCV 68.0 fl (80-96) L 12/01/18 06:17 MCHC 33.4 g/dl (32.0-35.9) 12/01/18 06:17 RDW 17.8 % (11.9-15.9) H 12/01/18 06:17 Plt Count 177 K/MM3 (134-434) 12/01/18 06:17 MPV 8.6 fl (7.5-11.1) 12/01/18 06:17 CMP Sodium 138 mmol/L (136-145) 12/01/18 06:17 Potassium 3.7 mmol/L (3.5-5.1) 12/01/18 06:17 Chloride 104 mmol/L (98-107) 12/01/18 06:17 Carbon Dioxide 29 mmol/L (21-32) 12/01/18 06:17 Anion Gap 5 MMOL/L (8-16) L 12/01/18 06:17 BUN 18 mg/dL (7-18) 12/01/18 06:17 Creatinine 1.2 mg/dL (0.55-1.3) 12/01/18 06:17 Creat Clearance w eGFR > 60 (>60) 12/01/18 06:17 Random Glucose 81 mg/dL (74-106) 12/01/18 06:17 Calcium 8.5 mg/dL (8.5-10.1) 12/01/18 06:17 Total Bilirubin 0.4 mg/dL (0.2-1) 11/29/18 08:00 AST 23 U/L (15-37) 11/29/18 08:00 ALT 26 U/L (13-61) 11/29/18 08:00 Alkaline Phosphatase 67 U/L (45-117) 11/29/18 08:00 Total Protein 6.0 g/dl (6.4-8.2) L 11/29/18 08:00 Albumin 3.3 g/dl (3.4-5.0) L 11/29/18 08:00 CARDIAC ENZYMES Creatine Kinase 201 U/L (26-308) 11/29/18 00:15 Troponin I < 0.02 ng/ml (0.00-0.05) 11/29/18 04:00 Home Medications Medication Instructions Recorded Aspirin Coated [Ecotrin -] 81 mg PO DAILY tablet.ec 12/01/18 Atorvastatin Ca [Lipitor] 80 mg PO HS tablet 12/01/18 Azilsartan Medoxomil [Edarbi] 80 mg PO DAILY #30 tablet 12/01/18 Clopidogrel Bisulfate [Plavix -] 75 mg PO DAILY tablet 12/01/18 Metoprolol Succinate [Toprol XL -] 25 mg PO DAILY tab.sr.24h 12/01/18 MRA : Impression: Mild atherosclerotic narrowing the right M1 segment. Focal likely hemodynamically significant stenosis in the distal left M1 segment of approximately 50%. There is also focal moderate narrowing/stenosis in the mid basilar artery, likely hemodynamically significant, approximately 50%. Very attenuated flow seen in the proximal left posterior cerebral artery only. Correlation with CT angiogram of the head is recommended for further evaluation Impression: No gross focal stenosis, aneurysm, major artery cutoff or vascular malformation is identified within the central intracranial arterial circulation. Impression. Atherosclerotic plaque involving proximal right internal carotid artery, with severe stenosis at the origin of the right internal carotid artery approximately 85%. Patent right internal, external carotid arteries. Normal bifurcation of the left common cardiac artery. No evidence of hemodynamic stenotic lesion. No flow is seen in the distal V2 segment of the right vertebral artery at the level of C2-C3. Dominant left vertebral artery, hypoplastic right vertebral artery. Stenotic lesion is seen in the basilar artery. CT HD IMPRESSION: Bilateral cerebellar chronic infarction/encephalomalacia. Large area of encephalomalacia/chronic infarct again seen involving the left temporal , frontal, parietal and occipital lobe with mild exvacuodilatation of the left lateral ventricle. No gross acute infarct or acute intracranial hemorrhage are identified. Correlate clinically and if needed correlation with MRI of the brain would be more sensitive. Doppler: Impression: There is mild intimal thickening in the right common carotid artery moderate size plaque at the right common carotid bifurcation/bulb with hemodynamically significant stenosis of 50-69%. Moderate intimal thickening in the left common carotid artery with suggestion of small soft plaques. Small-to- moderate sized plaques at the left common carotid bifurcation and bulb without evidence of hemodynamically significant stenosis. Reversal of flow in visualized portion of the proximal right vertebral artery. The rest of the right vertebral artery was not visualized. Differential diagnosis includes a subclavian steal versus distal right vertebral artery obstruction. Correlation with CTA of the neck including the aortic arch is needed for further evaluation. ASSESSMENT AND PLAN: Patient is 58 y/o man with PMHx of recent stroke with residual R sided sensory loss and expressive aphasia, HTN, HLP, R vertebral artery stenosis who presented after a fall and possible syncope #Presyncope: likely due to orthostatic hypotension, BP meds on hold, will readjust the meds. will get his lab courier dr. Salcido to see the patient. has a loop recorder after his stroke. will check with dr. salcido. about the loop recorder report, Loop recorder since 04/06. d/w Dr. Louie: MRI/MRA of brain10/08 reviewed. # Right internal carotid artery approximately 85%. follow up with neurology as an outpatient. # h/o recent creptogenic stroke: Loop recorder reading as per Dr. Salcido, cont statin , and asa. # h/o Hypertension: now BP is on low side continue to hold meds # ADIA : due to volume depletion , continue IVF # microcytic anemia : w/u as an outpatient. # neutropenia : improving, follow up as an outptient with bartacker ok to discharge patient home. as per
== END 2018-12-01 15:41 | disposition home or self-care (01) | DRG 683 ==
LOC: JER 21:47 → JERBED 11-29 01:36 → J4W 11-29 06:47 → J4S 11-29 19:46 → OBSVTOIN 11-30 13:26
PROVIDERS: ADMIT Internal Medicine; ATTEND Internal Medicine
DX: N17.9 Acute kidney failure, unspecified (principal); I69.351 Hemiplegia and hemiparesis following cerebral infarction affecting right dominant side; I95.1 Orthostatic hypotension; I69.320 Aphasia following cerebral infarction; F17.210 Nicotine dependence, cigarettes, uncomplicated; I10 Essential (primary) hypertension; E78.5 Hyperlipidemia, unspecified; E86.0 Dehydration; D72.819 Decreased white blood cell count, unspecified; D64.9 Anemia, unspecified; Y93.89 Activity, other specified; I25.10 Atherosclerotic heart disease of native coronary artery without angina pectoris; R44.9 Unspecified symptoms and signs involving general sensations and perceptions; I65.21 Occlusion and stenosis of right carotid artery; I25.2 Old myocardial infarction; I65.01 Occlusion and stenosis of right vertebral artery; W18.39XA Other fall on same level, initial encounter; Y92.89 Other specified places as the place of occurrence of the external cause
CPT/HCPCS: 36415; 70450-TC; 70544-TC; 70547-TC; 71045-TC-FY; 76775-TC; 80048; 80053; 81003; 82272; 82550; 82553; 82570; 82607; 82728; 82746; 83540; 83550; 83735; 84100; 84300; 84466; 84484; 85025; 85027; 85044; 85610; 85730; 87040; 87086; 87389; 93005; 93010; 93306-TC; 93880-TC; 99284-25; G0378; J1644; J7030

== ENCOUNTER 2019-08-24 07:04 | Day surgery (SDC) | payer BC ==
[2019-08-23 15:53] VITALS: BMI 24.5
[2019-08-24] MEDS ORDERED: SODIUM CHLORIDE 0.9% P/F 10 ML VIAL IJ ONE (08:13)
[2019-08-24] MEDS ORDERED: KETOROLAC TROMETHAMINE 30 MG/1 ML VIAL ONE (08:13)
[2019-08-24] MEDS ORDERED: ceFAZolin SODIUM 1 GM VIAL ONE (08:13)
[2019-08-24] MEDS ORDERED: fentaNYL CITRATE 250 MCG/5 ML VIAL ONE (08:13)
[2019-08-24] MEDS ORDERED: PROPOFOL 20 ML ONE ×2 (08:13)
[2019-08-24] MEDS ORDERED: DEXAMETHASONE SOD PHOSPHATE 4 MG/1 ML VIAL ONE (08:13)
[2019-08-24] MEDS ORDERED: MIDAZOLAM HCL 2 MG/2 ML SINGLE DOSE VIAL ONE (08:13)
[2019-08-24] MEDS ORDERED: oxyCODONE HCL 5 MG TABLET PO PRN ×3 (08:28→10:07)
[2019-08-24] MEDS ORDERED: ONDANSETRON 4 MG/2 ML VIAL IVPUSH PRN (08:28)
[2019-08-24] MEDS ORDERED: HYDROmorphone HCl 2 MG/ML VIAL IVPUSH PRN ×2 (08:29→08:30)
[2019-08-24] MEDS ORDERED: LACTATED RINGERS SOLUTION 1,000 ML IV SCH (08:30)
[2019-08-24] MEDS ORDERED: BUPIVACAINE HCL/PF 0.25% (2.5MG/ML) 10 ML VIAL ONE (08:42)
[2019-08-24] MEDS ORDERED: ceFAZolin SODIUM 1 GM VIAL IVPB ONE (09:10)
[2019-08-24] MEDS ORDERED: BUPIVACAINE HCL/PF 0.25% (2.5MG/ML) 10 ML VIAL IJ ONE ×2 (09:19→09:47)
[2019-08-24] MEDS ORDERED: EPHEDRINE SULFATE/0.9% NACL/PF 50 MG/10 ML SYRINGE NR ONE (09:23)
--- NOTE | 2019-08-24 10:09 | OP ---
Operative Note - Note: Operative Date: 08/24/19 Pre-Operative Diagnosis: bilat hydrocele Operation: bilat hydrocelectomy Post-Operative Diagnosis: Same as Pre-op Surgeon: Patrick Murillo Anesthesia: General Specimens Removed: hydrocele sac x 2 Estimated Blood Loss (mls): 2 Operative Report Dictated: Yes
[2019-08-24] MEDS ORDERED: DEXTROSE 5%-0.45% SALINE 1,000 ML IV SCH (10:15)
--- NOTE | 2019-08-24 10:38 | OP ---
DATE OF OPERATION: 08/24/2019 PREOPERATIVE DIAGNOSIS: Bilateral hydrocele. POSTOPERATIVE DIAGNOSIS: Bilateral hydrocele. PROCEDURE: Bilateral hydrocelectomy. SURGEON: David Bowen MD INDICATION: Patient is a 59-year-old male with recurrent bilateral hydroceles who has had percutaneous drainage in the past and now elects to undergo formal bilateral hydrocelectomy. Risks, benefits, and alternatives were discussed in detail. DESCRIPTION OF PROCEDURE: After informed consent was obtained, patient was taken to the OR and placed supine on the table. After cardiac monitoring was administered and general anesthesia was established, his scrotum was prepped and draped in standard surgical fashion. Attention first to the patient's left hydrocele. An approximately 3-cm transverse left hemiscrotal incision was created with a number 15 blade then using cautery, the dartos layers were incised until the tunica vaginalis was identified. The hydrocele sac was then delivered. The tunica vaginalis sac was excised in its entirety and sent to pathology for analysis. Hydrocele fluid was drained. It was dark yellowish in color. The hydrocele sac was then everted with 3-0 chromic sutures to prevent reaccumulation. The edges of the remaining hydrocele sac were everted, and then testicle was placed back in its normal anatomic position. Dartos muscle was closed with interrupted 3-0 chromic sutures, and the skin was closed with interrupted mattress sutures. With the patient's left side completed, attention was turned to patient's right side. In a similar fashion, a 3-cm left hemiscrotal incision was created with a number 15 blade, and then dartos layer was incised until the tunica vaginalis, and hydrocele sac was identified. The hydrocele sac was then delivered. Hydrocele sac was then excised with cautery, and the fluid drained. Clear yellow fluid was drained. The hydrocele sac was excised in its entirety with cautery then the edges of the remaining sac attached to the testicle were everted with a 3-0 chromic stitch and sutured to prevent reaccumulation in the future. The testicle was then placed back in its normal anatomic position, and the dartos layer was closed with 3-0 chromic sutures, and the skin was closed with 3-0 chromic sutures in a mattress sutures. On both right and left sides, a Ruben drain was placed into the scrotum for drainage. Dry sterile dressing with fluffs and scrotal support was then placed. The patient awoke from anesthesia and transferred to recovery in stable condition. There were no complications. Estimated blood loss was minimal. DAVID BOWEN M.D. [id number]
[2019-08-24 11:47] VITALS: TEMP 97.7
[2019-08-24 13:05] VITALS: BP 159/79; PULSE 75
--- NOTE | 2019-08-25 18:47 | PATH ---
Surgical Pathology Report Patient Name: ATUL TAYLOR [facility]. Rec. #: [id number] /Age/Gender: 1960 (Age: 59) / M Account: [id number] Location: [facility] SURGICAL Taken: 08/24/2019 Received: 08/24/2019 Reported: 08/25/2019 Physicians: Patrick Murillo M.D. Specimen(s) Received A: LEFT HYDROCELE SAC B: RIGHT HYDROCELE SAC Clinical History Hydrocele Final Diagnosis A. LEFT HYDROCELE SAC, EXCISION: CONSISTENT WITH HYDROCELE SAC. B. RIGHT HYDROCELE SAC, EXCISION: CONSISTENT WITH HYDROCELE SAC. Electronically Signed Brent Hinojosa M.D. Gross Description A. Received in formalin labeled "left hydrocele sac," is a 5.0 x 3.0 x 0.2 cm aggregate of jimenez-pink, unoriented, focally edematous portions of fibromembranous tissue, consistent with a hydrocele sac. [employer] sections are submitted in one cassette. B. Received in formalin labeled "right hydrocele sac," is a 5.3 x 2.5 x 0.2 cm aggregate of jimenez-pink, unoriented portions of fibromembranous tissue, consistent with a hydrocele sac. [employer] Pilot sections are submitted in one cassette. 08/24/201908/24/2019
== END 2019-08-24 12:50 | disposition home or self-care (01) ==
LOC: JASU-SURG 07:04
PROVIDERS: ATTEND Urology
PROC: 0VB70ZZ Excision of Left Tunica Vaginalis, Open Approach (ICD-10-PCS; 2019-08-24)
PROC: 0VB60ZZ Excision of Right Tunica Vaginalis, Open Approach (ICD-10-PCS; principal; 2019-08-24 09:16)
DX: N43.3 Hydrocele, unspecified (principal)
CPT/HCPCS: 88302-TC; 94760

== ENCOUNTER 2019-10-11 14:35 | Inpatient (IN) | payer BC ==
[2019-10-11] MEDS ORDERED: SODIUM CHLORIDE 1,000 ML IV SCH (14:45)
--- NOTE | 2019-10-11 14:52 | PDOC ---
NIH Stroke Scale - Last Known Well Date/Time & Onset Date Last Known Well: 10/11/19 Time Last Known Well: 12:30 - Initial Evaluation Level of consciousness: Alert Ask patient the month and their age: Answers one correctly Ask patient to open & close eyes; make fist and let go: Obeys both correctly Best gaze (horizontal eye movement): Normal Visual field testing: No visual field loss Facial paresis (Show teeth/raise eyebrows/close eyes tight): Minor paralysis ( flattened nasolabial fold, asymmetry on smiling) Motor Function: Left Arm: Normal Motor Function: Right Arm: No effort against gravity Motor Function: Left Leg: Normal (extends leg 30 degrees for 5 seconds without drift) Motor Function: Right Leg: Normal (extends leg 30 degrees for 5 seconds without drift) Limb Ataxia: No ataxia Sensory(Use pinprick test arms,legs,trunk,face/side to side): Normal Best language (Describe picture, name items, read sentences): No Aphasia Dysarthria (read several words): Mild to moderate slurring of words Extinction and Inattention: No abnormality - Total Score NIH Stroke Scale Score: 6
[2019-10-11 15:01] LABS: BASO % 0.5 % (0-2.0); EOS % 1.3 % (0-4.5); HEMOGLOBIN 13.2 GM/dL (11.7-16.9); LYMPH % 67.6 % (8-40); MCH 22.1 pg (25.7-33.7); MCHC 30.6 g/dl (32.0-35.9); MEAN CELL VOLUME 72.1 fl (80-96); MONO % 8.5 % (3.8-10.2); NEUT % 22.1 % (42.8-82.8); PLATELET COUNT 257 K/MM3 (134-434); RBC 5.96 M/mm3 (4.00-5.60); RDW 17.8 % (11.9-15.9); WHITE BLOOD COUNT 7.1 K/mm3 (4.0-10.0)
[2019-10-11 15:17] LABS: INR 1.1 (0.83-1.09)
--- NOTE | 2019-10-11 15:17 | PDOC ---
History of Present Illness - General Chief Complaint: Altered Mental Status Stated Complaint: R/O STROKE - History of Present Illness Initial Comments: 10/11/19 15:13 HPI: 60 y/o M with hx of HTN, HLD, CVA with residual R sided weakness, pAfib on eliquis BIBEMS found down. Per EMS, patient was alert but unresponsive with R sided facial droop and not moving right arm. On arrival to ED, patient alert and responding but with dysarthria and right arm weakness. Code alba initiated. On further history, patient with reports of previous stroke and some right arm weakness but worse today. Patient denies fever, chills, DEXTER, vision change, chest pain SOB, abdominal pain, nausea, vomiting PMHx: as noted above ROS: as noted SHx: Denies tobacco use; no alcohol use; no rec drugs Allergies: NKDA ROS: GENERAL/CONSTITUTIONAL: No fever or chills. +weakness. HEAD, EYES, EARS, NOSE AND THROAT: No change in vision. No ear pain or discharge. No sore throat. CARDIOVASCULAR: No chest pain or shortness of breath RESPIRATORY: No cough, wheezing, or hemoptysis. GASTROINTESTINAL: No nausea, vomiting, diarrhea or constipation. GENITOURINARY: No dysuria, frequency, or change in urination. MUSCULOSKELETAL: No joint or muscle swelling or pain. No neck or back pain. SKIN: No rash NEUROLOGIC: No headache, vertigo, or change in strength/sensation. ENDOCRINE: No increased thirst. No abnormal weight change HEMATOLOGIC/LYMPHATIC: No anemia, easy bleeding, or history of blood clots. ALLERGIC/IMMUNOLOGIC: No hives or skin allergy. PE: GENERAL: Awake, slurred speech HEAD: No signs of trauma, normocephalic, atraumatic EYES: EOMI, sclera anicteric, conjunctiva clear ENT: Auricles normal inspection, hearing grossly normal, nares patent, nasal bridge abrasion, oropharynx clear without exudates. Moist mucosa NECK: Normal ROM, no lymphadenopathy LUNGS: No increased work of breathing, symmetrical chest rise, clear to auscultation bilaterally, no wheezes, crackles or rhonchi HEART: Regular rate, regular rhythm, normal S1 and S2, no murmur, peripheral pulses 2+ and equal bilaterally. ABDOMEN: Soft, nondistended, nontender, normoactive bowel sounds. No guarding, no rebound. No masses. No CVAT MUSCULOSKELETAL: Normal inspection, FROM NEUROLOGICAL: Cranial nerves II through XII grossly intact SKIN: Warm, Dry, normal turgor, no rashes or lesions noted tPA Exclusion checklist 3-4.5h - Time Elapsed Date last known well: 10/11/19 Time last known well: 12:30 Elaspsed time: Day(s) and 5 Hour(s) and 31 Minutes - Thrombolytic Therapy Candidate Is patient eligible for thrombolytic therapy: Yes - Ineligibility reason(s) Reasons No tPA given: Outside of window - delayed arrival (unknown last well known; last well known learned after arrived but back to baseline deficits per ) NIH Stroke Scale - Initial Evaluation Level of consciousness: Alert Ask patient the month and their age: Answers one correctly Ask patient to open & close eyes; make fist and let go: Obeys both correctly Best gaze (horizontal eye movement): Normal Visual field testing: No visual field loss Facial paresis (Show teeth/raise eyebrows/close eyes tight): Minor paralysis ( flattened nasolabial fold, asymmetry on smiling) Motor Function: Left Arm: Normal Motor Function: Right Arm: Drift Motor Function: Left Leg: Normal (extends leg 30 degrees for 5 seconds without drift) Motor Function: Right Leg: Normal (extends leg 30 degrees for 5 seconds without drift) Limb Ataxia: Present in one limb Sensory(Use pinprick test arms,legs,trunk,face/side to side): Normal Best language (Describe picture, name items, read sentences): No Aphasia Dysarthria (read several words): Mild to moderate slurring of words Extinction and Inattention: No abnormality - Total Score NIH Stroke Scale Score: 5 Past History - Past Medical History Allergies/Adverse Reactions: Allergies Allergy/AdvReac Type Severity Reaction Status Date / Time No Known Drug Allergies Allergy Verified 08/24/19 08:27 "PORK CHOPS' AdvReac Nausea Uncoded 08/24/19 08:27 Home Medications: Ambulatory Orders Apixaban [Eliquis] 5 mg PO BID 08/23/19 Lisinopril [Prinivil -] 40 mg PO DAILY 08/23/19 Atorvastatin Ca [Lipitor] 40 mg PO HS 10/11/19 Azilsartan Medoxomil [Edarbi] 80 mg PO DAILY 10/11/19 Metoprolol Succinate [Toprol XL -] 50 mg PO DAILY 10/11/19 Anemia: No Asthma: No Cancer: No Cardiac Disorders: Yes (CAD W/ STENTS) CVA: Yes (03/2018) COPD: No CHF: No Dementia: No Diabetes: No GI Disorders: No Disorders: No HTN: Yes Hypercholesterolemia: Yes Liver Disease: No Seizures: No Thyroid Disease: No - Surgical History Cardiac Surgery: Yes (STENTS x3) - Immunization History Immunization Up to Date: Yes - Psycho Social/Smoking Cessation Hx Smoking Status: Yes Smoking History: Unknown if ever smoked Have you smoked in the past 12 months: Yes Number of Cigarettes Smoked Daily: 4 'Breaking Loose' booklet given: 08/23/19 Hx Alcohol Use: (uknown) Drug/Substance Use Hx: (uknown) Substance Use Type: None Hx Substance Use Treatment: No *Physical Exam - Vital Signs Last Vital Signs Temp Pulse Resp BP Pulse Ox 84 18 107/65 10/11/19 14:37 10/11/19 14:37 10/11/19 14:37 ED Treatment Course - LABORATORY CBC & Chemistry Diagram: 10/11/19 14:49 10/11/19 14:49 - ADDITIONAL ORDERS Additional order review: Laboratory Results 10/11/19 14:47 POC Glucometer 145 10/11/19 10/11/19 14:49 14:47 RBC 5.96 H MCV 72.1 L MCHC 30.6 L RDW 17.8 H MPV 8.0 Neutrophils % 22.1 L D Lymphocytes % 67.6 H D Monocytes % 8.5 Eosinophils % 1.3 Basophils % 0.5 POC Glucometer 145 Medical Decision Making - Medical Decision Making 10/11/19 18:01 60 y/o M with hx of HTN, HLD, CVA with residual R sided weakness, pAfib on eliquis BIBEMS found down; now alert and with slurred speech, right facial droop and RUE weakness. Initial BP 86/56 HR wnl, AF. -code alba/stroke order set, ekg -ivf -aspirin 10/11/19 18:03 EKG: initially with nsr, JHONY in v2-v5, nl intervals repeat ekg with: nsr, TWI in v2-v6 repeat ekg: nsr, t wave flattenings/inversion in anterolateral leads Cardio navigation teacher consulted, Dr Meyer and recommended echo; TTE: apical and apical septal wall motion abnl and hypokinesis; not candidate for emergent cath ; recommending admit for stroke consulted jacobo consulted patient's cardio, [facility] Low [facility] 10/11/19 18:[address] Ramon Discharge - Discharge Information Problems reviewed: Yes Clinical Impression/Diagnosis: CVA (cerebral vascular accident) Qualifiers: CVA mechanism: unspecified Qualified Code(s): I63.9 - Cerebral infarction, unspecified Condition: Stable - Follow up/Referral - Patient Discharge Instructions - Post Discharge Activity
[2019-10-11 15:19] LABS: ACTIVATED PTT 33.5 SECONDS (25.2-36.5)
[2019-10-11] MEDS ORDERED: ASPIRIN 81 MG CHEWABLE TABLETS PO ONE (15:26)
[2019-10-11] MEDS ORDERED: ASPIRIN 81 MG CHEWABLE TABLETS ONE ×2 (15:28→15:41)
[2019-10-11 15:30] LABS: ALBUMIN 3.9 g/dl (3.4-5.0); BILIRUBIN,TOTAL 0.6 mg/dL (0.2-1); BLOOD UREA NITROGEN 14.6 mg/dL (7-18); CALCIUM 9.7 mg/dL (8.5-10.1); CREATININE 2.1 mg/dL (0.55-1.3); POTASSIUM 4.2 mmol/L (3.5-5.1); TOT PROT 7.2 g/dl (6.4-8.2)
[2019-10-11 15:31] LABS: CHOLESTEROL 138 mg/dL (50-200); HDL CHOLESTEROL 65 mg/dL (40-60); LDL CHOLESTEROL (ONLY SJRH) 60 mg/dL (5-100); TRIGLYCERIDES 87 mg/dL (0-150)
--- NOTE | 2019-10-11 15:57 | EKG ---
Test Reason : Blood Pressure : / mmHG Vent. Rate : 077 BPM Atrial Rate : 077 BPM P-R Int : 190 ms QRS Dur : 106 ms QT Int : 420 ms P-R-T Axes : 062 051 032 degrees QTc Int : 475 ms NORMAL SINUS RHYTHM POSSIBLE LEFT ATRIAL ENLARGEMENT ANTERIOR INFARCT (CITED ON OR BEFORE 11-MAR-2012) ACUTE UT / STEMI ABNORMAL ECG WHEN COMPARED WITH ECG OF 29-NOV-2018 03:41, ST ELEVATION NOW PRESENT IN ANTERIOR LEADS T WAVE INVERSION NO LONGER EVIDENT IN ANTERIOR LEADS Confirmed by BANDAR MOSCOSO MD ([id number]) on 10/11/2019 3:56:48 PM Referred By: Confirmed By:BANDAR MOSCOSO MD
--- NOTE | 2019-10-11 16:38 | PDOC ---
Documentation entered by Sarah Mcfadden SCRIBE, acting as scribe for Rafael Jones MD. Rafael Jones MD: This documentation has been prepared by the Bogdan crawley Sammi, SCRIBE, under my direction and personally reviewed by me in its entirety. I confirm that the documentation accurately reflects all work, treatment, procedures, and medical decision making performed by me. Attending Attestation - Resident Resident Name: Sandie Quick - ED Attending Attestation I have performed the following: I have examined & evaluated the patient, The case was reviewed & discussed with the resident, I agree w/resident's findings & plan, Exceptions are as noted - HPI HPI: 10/11/19 16:31 patient is a 59-year-old male with multiple comorbidities , History of multiple CVAs in the past, presents by EMS after being found unresponsive. Patient's onset of symptoms is unknown and is unable to cooperate with a detailed H&P. - Physicial Exam PE: 10/11/19 16:32 Patient seen and evaluated immediately on arrival. Normocephalic, atraumatic no carotid bruits, no JVD PERRLA, EOMI, CTA abdomen soft, nontender, nondistended RRR +dysarthria, right upper extremity drift is noted; right upper extremity motor strength is noted to be 2/5; right lower extremity strength is noted to be 4/5; left upper extremity/left lower extremity strength is noted to be 5 of 5; right facial droop is noted. - Medical Decision Making 10/11/19 16:36 Patient is a 59-year-old male with multiple comorbidities who presents to the ER after being found unresponsive. On initial evaluation, noted to have evidence of acute infarction in the left MCA distribution. CT of head showed numerous previous chronic infarcts but no evidence of acute hemorrhage. CTA revealed no evidence of significant stenosis. Given the onset of symptoms was unknown patient is not a TPA candidate. CTA reveals no lesions amiable to thrombectomy. Will administer aspirin. EKG shows ST segment elevations in the lateral leads without reciprocal changes and patient categorically denies chest pain. Repeat EKG shows improvement in the ST segment elevations with T wave inversions. urgent 2D echocardiogram is currently being evaluated by cardiology. First set of cardiac enzymes within normal limit. 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 If no wall motion abnormalities noted, patient will be admitted to stroke at [facility]. If however wall motion abnormalities are identified, he will be transferred to [facility]U for further care. 10/11/19 16:50 Patient's is currently at bedside. She reports that patient's neurological deficits are currently at baseline. She also reports that patient has history of paroxysmal A. fib and is taking Eliquis. Patient's compliance however is in question. Patient last seen in his baseline state of health at 1230 on the day of arrival. 2D echocardiogram reveals apical wall motion abnormalities as well as apical septal wall motion abnormalities with mild global hypokinesis and an intact ejection fraction. Will reconsult cardiology and will likely transfer to [facility] CCU.
--- NOTE | 2019-10-11 16:41 | ECHO ---
Name: ATUL TAYLOR Exam:Adult Echocardiogram Study Date: 10/11/2019 03:57 PM Age: 59 yrs MMode/2D Measurements & Calculations IVSd: 1.2 cm Ao root diam: 2.9 cm LVIDd: 4.0 cm LA dimension: 3.2 cm LVIDs: 2.9 cm ACS: 2.1 cm LVPWd: 1.2 cm EDV(Teich): 68.5 ml LVOT diam: 1.9 cm ESV(Teich): 32.1 ml LAV (MOD-bp): 73.0 ml RV S Ihsan: 13.6 cm/sec Doppler Measurements & Calculations MV E max ihsan: 86.4 cm/sec Ao V2 max: 176.5 cm/sec MV A max ihsan: 107.6 cm/sec Ao max P.5 mmHg MV E/A: 0.80 KRUNAL(V,D): 1.6 cm2 MV dec time: 0.12 sec LV V1 max P.0 mmHg TR max ihsan: 227.6 cm/sec LV V1 max: 100.0 cm/sec TR max P.8 mmHg PA V2 max: 48.9 cm/sec PI end-d ihsan: 82.8 cm/sec PA max P.96 mmHg Med Peak E' Ihsan: 4.6 cm/sec Med E/e': 18.8 Lat Peak E' Ihsan: 4.9 cm/sec Lat E/e': 17.5 Procedure A two-dimensional transthoracic echocardiogram with color flow and Doppler was performed. The study w as technically difficult with many images being suboptimal in quality. Left Ventricle The left ventricle is grossly normal size. The left ventricular ejection fraction is normal. E/A reve rsal consistent with but not diagnostic of poor LV compliance. There is apical akinesis. There is apical s eptal wall akinesis. There is borderline global hypokinesis of the left ventricle. Right Ventricle The right ventricle is not well visualized. Atria Normal left and right atrial size and function. Mitral Valve There is mild mitral valve thickening. There is no mitral valve stenosis. There is trace to mild mitr al regurgitation. Tricuspid Valve There is mild tricuspid valve thickening. There is no tricuspid stenosis. There is mild tricuspid regurgitation. Right ventricular systolic pressure is normal. Aortic Valve The aortic valve is not well visualized. No hemodynamically significant valvular aortic stenosis. No aortic regurgitation is present. Pulmonic Valve The pulmonic valve is not well visualized. Great Vessels The aortic root is normal size. Pericardium/Pleura There is no pericardial effusion. Interpretation Summary The study was technically difficult with many images being suboptimal in quality. The left ventricular ejection fraction is normal. There is mild tricuspid regurgitation. Right ventricular systolic pressure is normal. There is apical akinesis. There is apical septal wall akinesis. The left ventricle is grossly normal size. E/A reversal consistent with but not diagnostic of poor LV compliance There is trace to mild mitral regurgitation. There is borderline global hypokinesis of the left ventricle. MD Pilo Doss 10/11/2019 04:41 PM
[2019-10-11 16:53] LABS: PLATELET ESTIMATE ADEQUATE
--- NOTE | 2019-10-11 18:13 | CON.NEURO ---
Consult - Alcohol/Substance Use Hx Alcohol Use: (uknown) - Smoking History Smoking history: Unknown if ever smoked Have you smoked in the past 12 months: Yes Aproximately how many cigarettes per day: 4 Home Medications - Allergies Allergies/Adverse Reactions: Allergies Allergy/AdvReac Type Severity Reaction Status Date / Time No Known Drug Allergies Allergy Verified 08/24/19 08:27 "PORK CHOPS' AdvReac Nausea Uncoded 08/24/19 08:27 - Home Medications Home Medications: Ambulatory Orders Apixaban [Eliquis] 5 mg PO BID 08/23/19 Lisinopril [Prinivil -] 40 mg PO DAILY 08/23/19 Atorvastatin Ca [Lipitor] 40 mg PO HS 10/11/19 Azilsartan Medoxomil [Edarbi] 80 mg PO DAILY 10/11/19 Metoprolol Succinate [Toprol XL -] 50 mg PO DAILY 10/11/19 Physical Exam-Neuro Vital Signs: Vital Signs Temperature 97.5 F L 10/11/19 15:25 Pulse Rate 76 10/11/19 17:15 Respiratory Rate 18 10/11/19 17:15 Blood Pressure 132/86 10/11/19 17:15 O2 Sat by Pulse Oximetry (%) 100 10/11/19 17:40 Labs: CBC, BMP 10/11/19 14:49 10/11/19 14:49 INR, PTT INR 1.10 (0.83-1.09) H 10/11/19 14:49 Assessment/Plan cc aphasia and right sided weakness HPI 60 year old male history of htn,hld, right sided weakness , atrial firb on eliquis. Patinet was confused and difficulty talking and symptoms resolved and now back to baseline. Patient has mild right sided facial droopiness and not moving arm, though he do have right arm weakness as baseline. He was seen with at bedside and patient feels his symptoms almost resolved. PMHx: as noted above SHx: Denies tobacco use; no alcohol use; no rec drugs Allergies: NKDA Allergies/Adverse Reactions: Allergies Allergy/AdvReac Type Severity Reaction Status Date / Time No Known Drug Allergies Allergy Verified 08/24/19 08:27 "PORK CHOPS' AdvReac Nausea Uncoded 08/24/19 08:27 Home Medications: Apixaban [Eliquis] 5 mg PO BID 08/23/19 Lisinopril [Prinivil -] 40 mg PO DAILY 08/23/19 Atorvastatin Ca [Lipitor] 40 mg PO HS 10/11/19 Azilsartan Medoxomil [Edarbi] 80 mg PO DAILY 10/11/19 Metoprolol Succinate [Toprol XL -] 50 mg PO DAILY 10/11/19 ROS,FH,SH reviewed in chart NEUROLOGICAL EXAMINATION Alert follow command, vss, neck is supple difficulty repeting and word findingd difficulty mild right sided hemiparesis BACK TO BASELINE ct head showed bihemispheric stroke right occpital and left mca Assessment/PIlan TIA , secondary to atrial fibrillation he is on eliquis and statin . 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
--- NOTE | 2019-10-11 18:36 | HP ---
Admitting History and Physical - Primary Care Physician PCP: Bonifacio Ramon - Admission Chief Complaint: syncopal episode, History of Present Illness: HPI: 60 y/o M with hx of HTN, HLD, CVA with residual R sided weakness, pAfib on eliquis BIBEMS found down. Per EMS, patient was alert but unresponsive with R sided facial droop and not moving right arm. On arrival to ED, patient alert and responding but with dysarthria and right arm weakness. Code alba initiated. On further history, patient with reports of previous stroke and some right arm weakness but worse today. 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 Cardiovascular: Yes: AFIB Renal/: Yes: Renal Failure - Past Surgical History Past Surgical History: Yes: Stent - Smoking History Smoking history: Unknown if ever smoked Have you smoked in the past 12 months: Yes Aproximately how many cigarettes per day: 4 - Alcohol/Substance Use Hx Alcohol Use: No ([place]) - Social History Usual Living Arrangement: Yes: With Spouse Home Medications - Allergies Allergies/Adverse Reactions: Allergies Allergy/AdvReac Type Severity Reaction Status Date / Time No Known Drug Allergies Allergy Verified 10/11/19 19:18 "PORK CHOPS' AdvReac Nausea Uncoded 10/11/19 19:18 - Home Medications Home Medications: Ambulatory Orders Apixaban [Eliquis] 5 mg PO BID 08/23/19 Lisinopril [Prinivil -] 40 mg PO DAILY 08/23/19 Atorvastatin Ca [Lipitor] 40 mg PO HS 10/11/19 Azilsartan Medoxomil [Edarbi] 80 mg PO DAILY 10/11/19 Metoprolol Succinate [Toprol XL -] 50 mg PO DAILY 10/11/19 Physical Examination Vital Signs: Vital Signs Temperature 97.5 F L 10/11/19 15:25 Pulse Rate 76 10/11/19 17:15 Respiratory Rate 18 10/11/19 17:15 Blood Pressure 132/86 10/11/19 17:15 O2 Sat by Pulse Oximetry (%) 100 10/11/19 17:40 Constitutional: Yes: Well Nourished Eyes: Yes: EOM Intact HENT: Yes: Atraumatic, Normocephalic Neck: Yes: Supple, Trachea Midline Cardiovascular: Yes: Pulse Irregular Respiratory: Yes: Regular, CTA Bilaterally Gastrointestinal: Yes: Normal Bowel Sounds Musculoskeletal: Yes: WNL Extremities: No: WNL Edema: No Neurological: Yes: Alert, Oriented, Aphasia (expressive,), Facial Droop ( flattening of the R nasolabial fold,) ...Motor Strength: WNL, LUE (5/5), LLE (5/5), RUE (5/5), RLE (5/5) Labs: CBC, BMP 10/11/19 14:49 10/11/19 14:49 Imaging - Results EKG: Image Reviewed (1.nsr, with st elevation ant leads, convex looking, 2. T inv ant leads,) Other: Report Reviewed (echo, apical and septal hypokinesia,) Assessment/Plan 60 y/o M with hx of HTN, HLD, CVA with residual R sided weakness, pAfib on eliquis BIBEMS found down; now alert and with slurred speech, right facial droop and RUE weakness. Initial BP 86/56 HR wnl, AF. 1) pt found unresponsive, and had slurring of speech and also facial weakness' as per no difference in speech and facial expression from before, and also compared with the last admission, pt was admitted with similar complaints, EKG: initially with nsr, JHONY in v2-v5, nl intervals repeat ekg with: nsr, TWI in v2-v6 repeat ekg: nsr, t wave flattenings/inversion in anterolateral leads Cardio playground monitor consulted, Dr Meyer and recommended echo; TTE: apical and apical septal wall motion abnl and hypokinesis; not candidate for emergent cath ; recommending admit for stroke consulted jacobo consulted patient's cardio, Dr Low , will get the MRI, and carotid doppler, ct head no acute infarct, 2) pt with ARF, was on mita inhibitors, and also on arbs, will hold both, also will get us renal and bladder, renal consult, 3) HTN will resume metoprolol hold mita and arb, also last admission his BP was low and meds adjusted, and held bc orthostasis and syncope, and as an outpt, doses increased, watch for ortostasis contributing again to the syncopal, 4) afib rte controlled, continue metoprolol and a/c 6) pt npo, will get swalowing eval, and start ivf, also check electrolytes Visit type - Emergency Visit Emergency Visit: Yes ED Registration Date: 10/11/19 Care time: The patient presented to the Emergency Department on the above date and was hospitalized for further evaluation of their emergent condition. - New Patient This patient is new to me today: Yes Date on this admission: 10/11/19 - Critical Care Critical Care patient: No
[2019-10-11] MEDS ORDERED: ACETAMINOPHEN 325 MG TABLET (FP) PO PRN (18:53)
[2019-10-11 19:24] LABS: URINE APPEARANCE TURBID; URINE COLOR YELLOW; URINE GLUCOSE (UA) NEGATIVE (NEGATIVE)
[2019-10-11 19:25] LABS: URINE BILIRUBIN NEGATIVE (NEGATIVE); URINE KETONE NEGATIVE (NEGATIVE)
[2019-10-11 19:26] LABS: EPI CELLS 3.4 /HPF (0-5/HPF); URINE LEUK ESTERASE NEGATIVE (NEGATIVE); URINE NITRITE NEGATIVE (NEGATIVE); URINE PROTEIN 1+ (NEGATIVE); URINE RBC 1.4 /hpf (0-4); URINE UROBILINOGEN 0.2 mg/dL (0.2-1.0); URINE WBC 2.1 /hpf (0-5)
[2019-10-11 19:27] LABS: HYALINE CASTS 18.62 /lpf (0-8)
[2019-10-11 21:14] VITALS: BMI 28.6
[2019-10-11] MEDS ORDERED: ATORVASTATIN CA 80 MG TABLET (FP) PO SCH (22:00)
[2019-10-11] MEDS: ATORVASTATIN CA 80 MG TABLET (FP) PO SCH (22:15)
[2019-10-11] MEDS: APIXABAN 5 MG TABLET PO SCH (22:15)
[2019-10-11] MEDS: DEXTROSE 5%-0.45% SALINE 1,000 ML IV SCH (22:45)
[2019-10-12 08:37] LABS: BASO % 0.7 % (0-2.0); HEMATOCRIT 38.1 % (35.4-49); HEMOGLOBIN 12.2 GM/dL (11.7-16.9); LYMPH % 32.6 % (8-40); MEAN PLT VOLUME 8.9 fl (7.5-11.1); MONO % 9.9 % (3.8-10.2); NEUT % 55.8 % (42.8-82.8); PLATELET COUNT 216 K/MM3 (134-434); RBC 5.53 M/mm3 (4.00-5.60); RDW 17.2 % (11.9-15.9); WHITE BLOOD COUNT 5.5 K/mm3 (4.0-10.0)
[2019-10-12 08:55] LABS: ALBUMIN 3.5 g/dl (3.4-5.0); BILIRUBIN,TOTAL 0.7 mg/dL (0.2-1); BLOOD UREA NITROGEN 11.5 mg/dL (7-18); CALCIUM 8.4 mg/dL (8.5-10.1); CREATININE 1.5 mg/dL (0.55-1.3)
--- NOTE | 2019-10-12 09:12 | PN ---
Progress Note (short form) - Note Progress Note: cc aphasia and right sided weakness HPI 60 year old male history of htn,hld, right sided weakness , atrial firb on eliquis. Patinet was confused and difficulty talking and symptoms resolved and now back to baseline. Patient has mild right sided facial droopiness and not moving arm, though he do have right arm weakness as baseline. Patient has no new syptoms, and his focal neurological syptom shas resolved. NEUROLOGICAL EXAMINATION Alert follow command, vss, neck is supple difficulty repeting and word findingd difficulty mild right sided hemiparesis ct head showed bihemispheric stroke right occpital and left mca carotid ultrasound showed right ica moderate stenosis Assessment/PIlan TIA , secondary to atrial fibrillation he is on eliquis and statin . carotid ultrasound showed right moderate stenosis Plan: continue high dose of statin, anticoagulation and aspirin mri of brain carotid ultraosund result appreciated vascular surgery consult for dr dru colón to evaluate for right ica moderate stenosis pt and speech therapy Thanking you so much Deniz Vasquez MD
--- NOTE | 2019-10-12 09:18 | PN ---
Teaching Attending Note Name of Resident: Julian Black ATTENDING PHYSICIAN STATEMENT I saw and evaluated the patient. I reviewed the resident's note and discussed the case with the resident. I agree with the resident's findings and plan as documented. SUBJECTIVE: Patient feels improved to baseline OBJECTIVE: Vital Signs Temperature 98.0 F 10/12/19 09:04 Pulse Rate 68 10/12/19 09:04 Respiratory Rate 18 10/12/19 09:04 Blood Pressure 132/90 10/12/19 09:04 O2 Sat by Pulse Oximetry (%) 99 10/11/19 20:46 General: Young man, comfortable, not in distress HEENT; mucous membranes moist, no anemia, no jaundice, PERRLA, no nystagmus Neck: No JVD, supple, no bruit, thyroid palpably normal, normal carotid pulsations. Chest: Nontender, clear to auscultation bilaterally CVS: S1-S2 regular no murmur/gallop/rub Abdomen: Nondistended, soft, bowel sounds present. 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 ASSESSMENT AND PLAN:60 multiple medical comorbidities history of hypertension, hyperlipidemia, multiple CVA, paroxysmal atrial fibrillation patient is on ILR for cryptogenic stroke in the past, at baseline patient has right upper extremity weakness and dysarthria, heart failure with reduced ejection fraction last documented EF was 40%, CAD status post LAD PCI, yesterday presented with an episode of unresponsiveness with worsening right-sided facial droop and right upper extremity weakness, CT head shows no acute changes multiple old infarct with encephalomalacia, patient also has history of right carotid arteries stenosis and right-sided steal syndrome, initial troponin I was negative subsequently increased to 1.6, at baseline CKD stage III, patient returned to baseline denies any worsening weakness, chest pain or shortness of breath evaluated by neurology, cardiology, nephrology consult. Impression: Unresponsiveness with weakness rule out stroke Non-ST elevation myocardial infarction Problem List - Problems (1) Unresponsiveness Assessment/Plan: Unclear if syncope/stroke we will follow-up neuro work-up, telemetry monitoring , repeat MRI, follow-up cardiology and neurology recommendations patient has INR need to be interrogated to rule out any ventricular arrhythmia as patient has low EF and elevated troponin I. Problems reviewed: Yes Code(s): R41.89 - OTH SYMPTOMS AND SIGNS W COGNITIVE FUNCTIONS AND AWARENESS (2) Elevated troponin Assessment/Plan: Denies any chest pain EKG remained stable can be demand ischemia, continue aspirin, statin, beta-nakul telemetry monitoring repeat echo follow-up cardiology recommendations. Problems reviewed: Yes Code(s): R79.89 - OTHER SPECIFIED ABNORMAL FINDINGS OF BLOOD CHEMISTRY (3) Systolic heart failure, ACC/AHA stage C Assessment/Plan: Patient has systolic heart failure, NYHA class II, will repeat echocardiogram, continue beta-nakul, follow-up cardiology recommendations Problems reviewed: Yes Code(s): I50.20 - UNSPECIFIED SYSTOLIC (CONGESTIVE) HEART FAILURE (4) Hypertension Assessment/Plan: Continue all home medication Problems reviewed: Yes Code(s): I10 - ESSENTIAL (PRIMARY) HYPERTENSION (5) Paroxysmal atrial fibrillation Assessment/Plan: Rate controlled continue anticoagulation with apixaban at present in normal sinus rhythm. Problems reviewed: Yes Code(s): I48.0 - PAROXYSMAL ATRIAL FIBRILLATION (6) Hyperlipidemia Assessment/Plan: Continue statin Problems reviewed: Yes Code(s): E78.5 - HYPERLIPIDEMIA, UNSPECIFIED Qualifiers: Hyperlipidemia type: pure hypercholesterolemia Qualified Code(s): E78.00 - Pure hypercholesterolemia, unspecified; E78.0 - Pure hypercholesterolemia (7) Aphasia as late effect of cerebrovascular accident Assessment/Plan: Needs stroke work-up follow-up neurology recommendations. Problems reviewed: Yes Code(s): I69.320 - APHASIA FOLLOWING CEREBRAL INFARCTION
--- NOTE | 2019-10-12 09:54 | CON.CARD ---
Consult Consult Specialty:: Cardiology Referred by:: Hospitalist Medicine Reason for Consultation:: Recurrent TIA, h/o stroke, PAF on ILR - History of Present Illness Chief Complaint: Recurrent TIA, h/o stroke History of Present Illness: 59 yo M with h/o HTN, HLD, CAD s/p AWMI, s/p Synergy 3.5x32 MORRIS mLAD 05/30/2016 , LV systolic dysfunction, CVA (04/06 with residual R sided weakness, visual deficits and expressive aphasia), orthostatic hypotension, CKD, PAF->SR on ILR placed on Eliquis last seen in office 08/2019 admitted with confusion dysarthria since resolved and now back to baseline. Patient has mild right sided facial droopiness and not moving arm, though he do have right arm weakness as baseline. ct head showed old bihemispheric stroke right occpital and left mca w/o new strokes, carotid ultrasound showed right ica moderate stenosis. Patient denies DEXTER, convulsions, vision change, palpitations, cough, wheezing, orthopnea, PND, leg swelling/pain, N/V, F,C, CP, SOB, urinary complaints, hematuria, BRPR, abdominal pain, diarrhea, constipation, lightheadedness, true syncope, weakness, sensory changes. 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 Cardio/Vascular: Yes: AFIB Renal/: Yes: Renal Failure - Past Surgical History Past Surgical History: Yes: Stent - Alcohol/Substance Use Hx Alcohol Use: No ([facility]) - Smoking History Smoking history: Unknown if ever smoked Have you smoked in the past 12 months: Yes Aproximately how many cigarettes per day: 4 If you are a former smoker, when did you quit?: 2 years ago Home Medications - Allergies Allergies/Adverse Reactions: Allergies Allergy/AdvReac Type Severity Reaction Status Date / Time No Known Drug Allergies Allergy Verified 10/11/19 19:18 "PORK CHOPS' AdvReac Nausea Uncoded 10/11/19 19:18 - Home Medications Home Medications: Ambulatory Orders Apixaban [Eliquis] 5 mg PO BID 08/23/19 Lisinopril [Prinivil -] 40 mg PO DAILY 08/23/19 Atorvastatin Ca [Lipitor] 40 mg PO HS 10/11/19 Azilsartan Medoxomil [Edarbi] 80 mg PO DAILY 10/11/19 Metoprolol Succinate [Toprol XL -] 50 mg PO DAILY 10/11/19 Review of Systems - Review of Systems Neurological: reports: Change in Speech, Pre-Existing Deficit Vital Signs: Vital Signs Temperature 98.0 F 10/12/19 09:04 Pulse Rate 68 10/12/19 09:04 Respiratory Rate 18 10/12/19 09:04 Blood Pressure 132/90 10/12/19 09:04 O2 Sat by Pulse Oximetry (%) 99 10/11/19 20:46 Constitutional: Yes: No Distress, Calm Neck: Yes: Supple Respiratory: Yes: Regular, CTA Bilaterally Gastrointestinal: Yes: Normal Bowel Sounds, Soft Cardiovascular: Yes: Regular Rate and Rhythm JVD: No Carotid Bruit: No Heart Sounds: Yes: S1, S2 Murmur: Yes: Systolic Murmur, Grade 1 Edema: No Neurological: Yes: Dysarthria, Pre-Existing Deficit, Weakness ...Motor Strength: RUE - Other Data Labs, Other Data: CBC, BMP 10/12/19 05:40 10/12/19 05:40 INR, PTT INR 1.10 (0.83-1.09) H 10/11/19 14:49 Troponin, BNP 10/11/19 10/11/19 10/12/19 14:49 18:35 05:40 Troponin I < 0.02 0.03 1.60 H* Troponin, BNP 10/11/19 10/11/19 10/12/19 14:49 18:35 05:40 Troponin I < 0.02 0.03 1.60 H* NSR @ 72 LAE, LVH anterolateral infarct similar to previous Tele: No PAF Ejection Fraction %: LVEF > or = 40 % Imaging - Results Chest X-ray: Report Reviewed (NAD) Cat Scan: Report Reviewed (HCT: Old left cerebral, right occipital, posterior cerebellar strokes w/o new strokes) Ultrasound: Report Reviewed (Renal US: Normal) Problem List - Problems (1) Diastolic dysfunction without heart failure Code(s): I51.89 - OTHER ILL-DEFINED HEART DISEASES (2) Aphasia as late effect of cerebrovascular accident Code(s): I69.320 - APHASIA FOLLOWING CEREBRAL INFARCTION (3) Coronary artery disease Code(s): I25.10 - ATHSCL HEART DISEASE OF [place] CORONARY ARTERY W/O ANG PCTRS Qualifiers: Coronary Disease-Associated Artery/Lesion type: [place] artery [place] vs. transplanted heart: [place] heart Associated angina: without angina Qualified Code(s): I25.10 - Atherosclerotic heart disease of [place] coronary artery without angina pectoris (4) Hyperlipidemia Code(s): E78.5 - HYPERLIPIDEMIA, UNSPECIFIED Qualifiers: Hyperlipidemia type: pure hypercholesterolemia Qualified Code(s): E78.00 - Pure hypercholesterolemia, unspecified; E78.0 - Pure hypercholesterolemia (5) Old anterior myocardial infarction Code(s): I25.2 - OLD MYOCARDIAL INFARCTION (6) ADIA (acute kidney injury) Code(s): N17.9 - ACUTE KIDNEY FAILURE, UNSPECIFIED (7) Chronic anticoagulation Code(s): Z79.01 - USP (CURRENT) USE OF ANTICOAGULANTS (8) S/P coronary artery stent placement Code(s): Z95.5 - PRESENCE OF CORONARY ANGIOPLASTY IMPLANT AND GRAFT Assessment/Plan 10/11/2019 Echo: Normal LV size with borderline HK and apical, apical septal AK , abnl LV compliance, tr-mild MR 11/29/2018 Echo: Moderate decreased LVEF 40% with anterior, anteroseptal and apical HK, normal RV fxn, mild TR, tr MO IMPRESSION: Bilateral cerebellar chronic infarction/encephalomalacia. Large area of encephalomalacia/chronic infarct again seen involving the left temporal , frontal, parietal and occipital lobe with mild exvacuodilatation of the left lateral ventricle. No gross acute infarct or acute intracranial hemorrhage are identified. Correlate clinically and if needed correlation with MRI of the brain would be more sensitive. Doppler: Impression: There is mild intimal thickening in the right common carotid artery moderate size plaque at the right common carotid bifurcation/bulb with hemodynamically significant stenosis of 50-69%. Moderate intimal thickening in the left common carotid artery with suggestion of small soft plaques. Small-to- moderate sized plaques at the left common carotid bifurcation and bulb without evidence of hemodynamically significant stenosis. Reversal of flow in visualized portion of the proximal right vertebral artery. The rest of the right vertebral artery was not visualized. Differential diagnosis includes a subclavian steal versus distal right vertebral artery obstruction. Correlation with CTA of the neck including the aortic arch is needed for further evaluation. 1. Recurrent TIA 2. Paroxysmal atrial fibrillation/flutter->SR [id number] on Eliquis, possible noncompliance 3. Acute on CKD (pre-renal) improving 3. Previous stroke with residual R sided sensory loss, visual deficits and expressive aphasia 4. Moderate BARB stenosis 6. CAD s/p AWMI PCI LAD, demand ischemia 7. HTN 8. Hyperlipidemia 9. LV diastolic dysfunction with improved LVEF 10. Orthostatic syncope 11. Bilateral hydrocele repair P:1. Continue Toprol XL 50 qd, Eliquis 5 bid, Lipitor 40 qd, agree with add ASA 81 qd, resume ARB once renal fxn stabilizes 2. F/u MRI brain, trend troponins to document peak 3. PT and speech therapy 4. Thank you for consultative opportunity
--- NOTE | 2019-10-12 10:16 | CONSULT ---
Admitting History and Physical - Primary Care Physician PCP: Nazia Jules - Admission History of Present Illness: Per EMR- 60 y/o M with hx of HTN, HLD, CVA with residual R sided weakness, pAfib on eliquis BIBEMS found down. Per EMS, patient was alert but unresponsive with R sided facial droop and not moving right arm. On arrival to ED, patient alert and responding but with dysarthria and right arm weakness Neurology ip-TIA , secondary to atrial fibrillation he is on eliquis and statin . 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 Cardiovascular: Yes: AFIB Renal/: Yes: Renal Failure - Past Surgical History Past Surgical History: Yes: Stent - Smoking History Smoking history: Unknown if ever smoked Have you smoked in the past 12 months: Yes Aproximately how many cigarettes per day: 4 If you are a former smoker, when did you quit?: 2 years ago - Alcohol/Substance Use Hx Alcohol Use: No ([place]) History - Admission Reason For Visit: CVA - Diagnostics X-ray: Report Reviewed CT Scan: Report Reviewed MRI: Pending Other: Report Reviewed (11/29/2018 Echo: Moderate decreased LVEF 40% with anterior, anteroseptal and apical HK, normal RV fxn, mild TR, tr RI IMPRESSION : Bilateral cerebellar chronic infarction/encephalomalacia. Large area of encephalomalacia/chronic infarct again seen involving the left temporal, frontal , parietal and occipital lobe with mild exvacuodilatation of the left lateral ventricle. No gross acute infarct or acute intracranial hemorrhage are identified. Correlate clinically and if needed correlation with MRI of the brain would be more sensitive. Doppler: Impression: There is mild intimal thickening in the right common carotid artery moderate size plaque at the right common carotid bifurcation/bulb with hemodynamically significant stenosis of 50- 69%. Moderate intimal thickening in the left common carotid artery with suggestion of small soft plaques. [id number] sized plaques at the left common carotid bifurcation and bulb without evidence of hemodynamically significant stenosis. Reversal of flow in visualized portion of the proximal right vertebral artery. The rest of the right vertebral artery was not visualized. Differential diagnosis includes a subclavian steal versus distal right vertebral artery obstruction. Correlation with CTA of the neck including the aortic arch is needed for further evaluation.) - General Mental Status: Alert and Oriented, Awake and Alert, Able to Follow Commands Attention: Intact Ability to Follow Directions: Good Head/Neck Control: WFL - Hearing Hearing: Normal Speech Evaluation - Communication Primary Language: FRISIAN Communication: Yes: Aphasia Oral Expression Ability: Yes: Moderate Impairment - Speech Production Able to Make Needs Known: Yes: Moderately Impaired (during propositional speech tasks) Intelligibility: Yes: WNL - Speech Characteristics Voice Loudness: Normal Voice Pitch: Yes: Normal Voice Phonatory-based Quality: Yes: Normal Speech Clarity: < 100% Nasal Resonance: Normal Articulation: Yes: Precise - Language/Auditory Comprehension Follows: Yes: 1 Stage Simple Commands Observation: Able to respond to yes/no queries: Yes, Yes/No Confusion: No, Comprehends Conversational Speech: Yes - Language/Verbal Expression Aphasia: Yes: Nonfluent, Anomia, Paraphrasic Errors, Apraxia, Sound Errors Able to Respond to Simple Queries: Yes: Moderately Impaired Able to Communicate Wants and Needs: Yes: Moderately Impaired Functional Communication Status: Yes: Moderately Impaired Aware of Errors: No Attempts to Correct Errors: No Attention: Yes: Intact - Swallow Evaluation/Bedside Assessment Current Nutritional Intake: Regular, Thin Liquids Oral Secretions: Yes: WFL Dentition: Yes: Adequate, Dental Appliance Upper (full but missing teeth anteriorally), Dental Appliance Lower Facial Symmetry at Rest: Symmetrical Facial Symmetry on Retraction: Symmetrical Against Resistance Opening: Normal Against Resistance Closing: Normal Pucker Lips: Normal Smile: Normal, Weak Lingual Movement: Normal, Symmetric Lingual Speed of Movement: Normal Lingual Movement Strgth Against Opposition: Normal Lingual Movement Characteristics: Normal Velopharyngeal Movement: Normal Laryngeal Elevation: WFL Laryngeal Movement: Able to Palpate Rate of Intake: WFL Bolus Size: WFL Labial Seal: WFL Chewing: WFL Oral Prep Time: WFL A-P Transit: WFL Timing of Swallow: WFL Coughing/Throat Clear: No Change in Voice: No Recommendations - Speech Evaluation, Impression/Plan Impression: Non fluent Aphasia with good comprehension and cognityion. Swallowing intact. - Dysphagia Impressions/Plan Swallowing Skills: WFL Dysphagia Impressions: No Impairment *Silent aspiration: cannot be R/O at bedside Recommendations: Other (Pt would benefit from Speech tx upon d/c-Excellent potention for functional improvement- Homecare?) - Recommendations Diet Consistency: Regular Medication Administration: Whole with water Liquids: Thin Liquids
[2019-10-12] MEDS: metoPROLOL SUCCINATE 25 MG TAB.SR.24H (FP) PO SCH (10:22)
[2019-10-12] MEDS: APIXABAN 5 MG TABLET PO SCH ×2 (10:22→22:43)
[2019-10-12] MEDS: ASPIRIN COATED 81 MG TABLET.EC PO SCH (10:23)
[2019-10-12 10:43] LABS: ANISOCYTOSIS 2+; MACROCYTOSIS 0; PLATELET ESTIMATE NORMAL; TEAR DROP CELLS 1+
[2019-10-12] MEDS: DEXTROSE 5%-0.45% SALINE 1,000 ML IV SCH (11:49)
--- NOTE | 2019-10-12 13:10 | CONSULT ---
Consult - text type - Consultation Consultation Note: Renal Consult for ADIA This is a 59 year old gentleman with history of CVA with right side weakness, hypertension, hyperlipidemia who was found down and with facial drop admitted for r/o CVA/TIA and found to have ADIA with Cr of 2. Pt seen and examined at the bedside. He reports no acute complaints. No chest pain, fever, chills, sob, abd pain, N/V/D. Denies any NSAID use prior to hospital admission. He did have CT with contrast on admission. He denies any change in urine output , flank pain, dysuria or frequency. PMHx: as above Allergies: NKDA Family Hx: NC Social Hx: No T/A/D ROS: as per HPI, all other pertinent ros negative Home Medications Medication Instructions Recorded Apixaban [Eliquis] 5 mg PO BID 08/23/19 Lisinopril [Prinivil -] 40 mg PO DAILY 08/23/19 Atorvastatin Ca [Lipitor] 40 mg PO HS 10/11/19 Azilsartan Medoxomil [Edarbi] 80 mg PO DAILY 10/11/19 Metoprolol Succinate [Toprol XL -] 50 mg PO DAILY 10/11/19 Vital Signs Temperature 98.0 F 10/12/19 09:04 Pulse Rate 68 10/12/19 09:04 Respiratory Rate 18 10/12/19 09:04 Blood Pressure 132/90 10/12/19 09:04 O2 Sat by Pulse Oximetry (%) 99 10/11/19 20:46 Intake & Output 10/09/19 10/10/19 10/11/19 10/12/19 23:59 23:59 23:59 23:59 Intake Total 259 600 Balance 259 600 Weight 85.502 kg NAD awake and alert neck supple irregular, no M/R CTA, no rales soft NT/ND, no bladder distension no LE edema, clubbing or cyanosis Right side weakness CBC, BMP 10/12/19 05:40 10/12/19 05:40 Current Medications Acetaminophen (Tylenol -) 650 mg PO Q6H PRN PRN Reason: PAIN LEVEL 4 - 6 Apixaban (Eliquis -) 5 mg PO BID [facility] Last Admin: 10/12/19 10:22 Dose: 5 mg Aspirin (Ecotrin -) 81 mg PO DAILY [facility] Last Admin: 10/12/19 10:23 Dose: 81 mg Atorvastatin Calcium (Lipitor -) 80 mg PO HS [facility] Last Admin: 10/11/19 22:15 Dose: 80 mg Dextrose/Sodium Chloride (D5-1/2ns -) 1,000 mls @ 75 mls/hr IV ASDIR [facility] Last Admin: 10/12/19 11:49 Dose: 75 mls/hr Metoprolol Succinate (Toprol Xl -) 50 mg PO DAILY [facility] Last Admin: 10/12/19 10:22 Dose: 50 mg 59 year old gentleman with history of CVA with right side weakness, hypertension, hyperlipidemia who was found down and with facial drop admitted for r/o CVA/TIA and found to have ADIA with Cr of 2. 1. Acute kidney injury likely due to hemodynamic changes +/- volume depletion 2. Acute TIA vs. CVA 3. Hypertension 4. Hyperlipidemia 5. Contrast exposure in patient with decreased eGFR Renal function improving with IV hydration. ACEi is cuttently being held but can restart once Cr back to baseline of ~1.2- 1.3 Would continue IVF for now as pt w/o any signs of volume overload Would monitor renal function for 48-72 hours s/p contrast exposure to [facility] for KEN[facility] MRI pending Neurology and cardiology pending Thank you Mac Watkins DO
--- NOTE | 2019-10-12 13:27 | PN ---
Physical Exam: SUBJECTIVE: Patient seen and examined. Patient offers no complaints. Says he feels well. Denies headaches, chest pain, sob. Says he is back at baseline. OBJECTIVE: Vital Signs Period Temp Pulse Resp BP Sys/Fox Pulse Ox Last 24 Hr 97.4 F-98.4 F 67-84 16-20 72-148/56-94 95-100 GENERAL: a/o x 3, comfortable in nad HEAD: Normal with no signs of trauma. EYES: PERRL, extraocular movements intact, no nystagmus ENT: moist mucous membranes. NECK: supple. LUNGS: Breath sounds equal, clear to auscultation bilaterally HEART: RRR ABDOMEN: Soft, nontender, nondistended, normoactive bowel sounds EXTREMITIES: 2+ pulses, warm, well-perfused, no edema. NEUROLOGICAL: no facial droop, no asymmetry, muscle strength 5/5 throughout but RUE weaker than LUE. normal heel to alexander, normal shoulder shrug Laboratory Results - last 24 hr 10/11/19 10/11/19 10/11/19 14:47 14:49 14:49 WBC RBC Hgb Hct MCV MCH MCHC RDW Plt Count MPV Absolute Neuts (auto) Total Counted Neutrophils % Neutrophils % (Manual) Lymphocytes % Lymphocytes % (Manual) Monocytes % Monocytes % (Manual) Eosinophils % Basophils % Nucleated RBC % Hypochromia Platelet Estimate Platelet Comment Polychromasia Poikilocytosis Basophilic Stippling Anisocytosis Microcytosis Macrocytosis Tear Drop Cells Acanthocytes (Spur) PT with INR 13.00 INR 1.10 H PTT (Actin FS) 33.5 Sodium Potassium Chloride Carbon Dioxide Anion Gap BUN Creatinine Est GFR (CKD-EPI)AfAm Est GFR (CKD-EPI)NonAf POC Glucometer 145 Random Glucose Hemoglobin A1c % Calcium Total Bilirubin AST ALT Alkaline Phosphatase Creatine Kinase Creatine Kinase Index CK-MB (CK-2) Troponin I Total Protein Albumin Triglycerides 87 Cholesterol 138 Total LDL Cholesterol 60 HDL Cholesterol 65 H Urine Color Urine Appearance Urine pH Ur Specific North Urine Protein Urine Glucose (UA) Urine Ketones Urine Blood Urine Nitrite Urine Bilirubin Urine Urobilinogen Ur Leukocyte Esterase Urine WBC (Auto) Urine RBC (Auto) Urine Casts (Auto) U Epithel Cells (Auto) Urine Bacteria (Auto) Blood Type Antibody Screen 10/11/19 10/11/19 10/11/19 14:49 14:49 14:49 WBC 7.1 RBC 5.96 H Hgb 13.2 Hct 43.0 MCV 72.1 L MCH 22.1 L MCHC 30.6 L RDW 17.8 H Plt Count 257 MPV 8.0 Absolute Neuts (auto) 1.6 Total Counted 100 Neutrophils % 22.1 L D Neutrophils % (Manual) 27.0 L D Lymphocytes % 67.6 H D Lymphocytes % (Manual) 64.0 H Monocytes % 8.5 Monocytes % (Manual) 6 Eosinophils % 1.3 Basophils % 0.5 Nucleated RBC % 0 Hypochromia 1+ Platelet Estimate Adequate Platelet Comment No clumping noted Polychromasia 1+ Poikilocytosis Basophilic Stippling Anisocytosis Microcytosis Macrocytosis Tear Drop Cells Acanthocytes (Spur) PT with INR INR PTT (Actin FS) Sodium 136 Potassium 4.2 Chloride 102 Carbon Dioxide 12 L Anion Gap 22 H BUN 14.6 Creatinine 2.1 H Est GFR (CKD-EPI)AfAm 39.04 Est GFR (CKD-EPI)NonAf 33.68 POC Glucometer Random Glucose 143 H Hemoglobin A1c % Calcium 9.7 Total Bilirubin 0.6 AST 26 ALT 39 Alkaline Phosphatase 87 Creatine Kinase 217 Creatine Kinase Index 1.2 CK-MB (CK-2) 2.7 Troponin I < 0.02 Total Protein 7.2 Albumin 3.9 Triglycerides Cholesterol Total LDL Cholesterol HDL Cholesterol Urine Color Urine Appearance Urine pH Ur Specific North Urine Protein Urine Glucose (UA) Urine Ketones Urine Blood Urine Nitrite Urine Bilirubin Urine Urobilinogen Ur Leukocyte Esterase Urine WBC (Auto) Urine RBC (Auto) Urine Casts (Auto) U Epithel Cells (Auto) Urine Bacteria (Auto) Blood Type Antibody Screen 10/11/19 10/11/19 10/11/19 14:49 18:00 18:35 WBC RBC Hgb Hct MCV MCH MCHC RDW Plt Count MPV Absolute Neuts (auto) Total Counted Neutrophils % Neutrophils % (Manual) Lymphocytes % Lymphocytes % (Manual) Monocytes % Monocytes % (Manual) Eosinophils % Basophils % Nucleated RBC % Hypochromia Platelet Estimate Platelet Comment Polychromasia Poikilocytosis Basophilic Stippling Anisocytosis Microcytosis Macrocytosis Tear Drop Cells Acanthocytes (Spur) PT with INR INR PTT (Actin FS) Sodium Potassium Chloride Carbon Dioxide Anion Gap BUN Creatinine Est GFR (CKD-EPI)AfAm Est GFR (CKD-EPI)NonAf POC Glucometer Random Glucose Hemoglobin A1c % Calcium Total Bilirubin AST ALT Alkaline Phosphatase Creatine Kinase Creatine Kinase Index CK-MB (CK-2) Troponin I 0.03 Total Protein Albumin Triglycerides Cholesterol Total LDL Cholesterol HDL Cholesterol Urine Color Yellow Urine Appearance Turbid Urine pH 5.0 Ur Specific North 1.063 H Urine Protein 1+ H Urine Glucose (UA) Negative Urine Ketones Negative Urine Blood 2+ H Urine Nitrite Negative Urine Bilirubin Negative Urine Urobilinogen 0.2 Ur Leukocyte Esterase Negative Urine WBC (Auto) 2.1 Urine RBC (Auto) 1.4 Urine Casts (Auto) 18.62 U Epithel Cells (Auto) 3.4 Urine Bacteria (Auto) 12.0 Blood Type O POSITIVE Antibody Screen Negative 10/12/19 10/12/19 10/12/19 05:40 05:40 05:40 WBC 5.5 RBC 5.53 Hgb 12.2 Hct 38.1 MCV 69.0 L MCH 22.0 L MCHC 32.0 RDW 17.2 H Plt Count 216 MPV 8.9 D Absolute Neuts (auto) 3.1 Total Counted Neutrophils % 55.8 D Neutrophils % (Manual) Lymphocytes % 32.6 D Lymphocytes % (Manual) Monocytes % 9.9 Monocytes % (Manual) Eosinophils % 1.0 Basophils % 0.7 Nucleated RBC % 0 Hypochromia 0 Platelet Estimate Normal Platelet Comment Polychromasia 1+ Poikilocytosis 2+ Basophilic Stippling 1+ Anisocytosis 2+ Microcytosis 2+ Macrocytosis 0 Tear Drop Cells 1+ Acanthocytes (Spur) 1+ PT with INR INR PTT (Actin FS) Sodium 140 Potassium 4.0 Chloride 107 Carbon Dioxide 27 Anion Gap 5 L BUN 11.5 Creatinine 1.5 H Est GFR (CKD-EPI)AfAm 58.63 Est GFR (CKD-EPI)NonAf 50.59 POC Glucometer Random Glucose 115 H Hemoglobin A1c % 5.8 Calcium 8.4 L Total Bilirubin 0.7 AST 103 H ALT 40 Alkaline Phosphatase 68 Creatine Kinase 4816 H Creatine Kinase Index 0.7 CK-MB (CK-2) 36.8 H Troponin I 1.60 H* Total Protein 6.0 L Albumin 3.5 Triglycerides 52 Cholesterol 125 Total LDL Cholesterol 56 HDL Cholesterol 59 Urine Color Urine Appearance Urine pH Ur Specific North Urine Protein Urine Glucose (UA) Urine Ketones Urine Blood Urine Nitrite Urine Bilirubin Urine Urobilinogen Ur Leukocyte Esterase Urine WBC (Auto) Urine RBC (Auto) Urine Casts (Auto) U Epithel Cells (Auto) Urine Bacteria (Auto) Blood Type Antibody Screen Active Medications Generic Name Dose Route Start Last Admin Trade Name Taylor PRN Reason Stop Dose Admin Acetaminophen 650 mg 10/11/19 18:53 Tylenol - PO Q6H PRN PAIN LEVEL 4 - 6 Apixaban 5 mg 10/11/19 22:00 10/12/19 10:22 Eliquis - PO 5 mg BID [facility] Administration Aspirin 81 mg 10/12/19 10:00 10/12/19 10:23 Ecotrin - PO 81 mg DAILY [facility] Administration Atorvastatin Calcium 80 mg 10/11/19 22:00 10/11/19 22:15 Lipitor - PO 80 mg HS [facility] Administration Dextrose/Sodium Chloride 1,000 mls @ 75 mls/hr 10/11/19 21:45 10/12/19 11:49 D5-1/2ns - IV 75 mls/hr ASDIR [facility] Administration Metoprolol Succinate 50 mg 10/12/19 10:00 10/12/19 10:22 Toprol Xl - PO 50 mg DAILY [facility] Administration ASSESSMENT/PLAN: 60 y/o M with hx of HTN, HLD, CVA with residual R sided weakness,CAD s/p AWMI PCI LAD, pAfib on eliquis BIBEMS found down; in the ER found to have acute CVA # Acute CVA -R occipital/L MCA -now likely at baseline -CT scan with R occipital/L MCa stroke -FU brain MRI -increase atorvastatin to 80mg -daily aspirin -FU echo -carotid doppler with right moderate stenosis -fu Neuro reccs -PT -monitor vital signs #Elevated troponins -first neg x 2, now increased to 1.6 -trend troponin -EKG: initially with nsr, JHONY in v2-v5, nl intervals, repeat ekg with: nsr, TWI in v2-v6, repeat ekg: nsr, t wave flattenings/inversion in anterolateral leads -FU cardio reccs #A-fib -cont rate control toprol xl 50 -cont eliquis 5mg BID #ADIA on CKD -cr today 1.5 from 2.1 -fu morning labs #HTN/CAD -cont toprol xl 50mg -resume mita when adia resolves -asa 81 daily #FEN -dc IV fluids -monitor lytes -sodium diet #dvt ppx -eliquis Visit type - Emergency Visit Emergency Visit: Yes ED Registration Date: 10/11/19 Care time: The patient presented to the Emergency Department on the above date and was hospitalized for further evaluation of their emergent condition. - New Patient This patient is new to me today: Yes Date on this admission: 10/12/19 - Critical Care Critical Care patient: No ATTENDING PHYSICIAN STATEMENT I saw and evaluated the patient. I reviewed the resident's note and discussed the case with the resident. I agree with the resident's findings and plan as documented. SUBJECTIVE: OBJECTIVE: ASSESSMENT AND PLAN:
--- NOTE | 2019-10-12 15:12 | EKG ---
Test Reason : Blood Pressure : / mmHG Vent. Rate : 075 BPM Atrial Rate : 075 BPM P-R Int : 200 ms QRS Dur : 112 ms QT Int : 444 ms P-R-T Axes : 057 038 083 degrees QTc Int : 495 ms SINUS RHYTHM WITH OCCASIONAL PREMATURE VENTRICULAR COMPLEXES POSSIBLE LEFT ATRIAL ENLARGEMENT LEFT VENTRICULAR HYPERTROPHY ANTERIOR INFARCT (CITED ON OR BEFORE 11-MAR-2012) T WAVE ABNORMALITY, CONSIDER LATERAL ISCHEMIA ABNORMAL ECG WHEN COMPARED WITH ECG OF 11-OCT-2019 15:13, PREMATURE VENTRICULAR COMPLEXES ARE NOW PRESENT ST NO LONGER ELEVATED IN LATERAL LEADS NONSPECIFIC T WAVE ABNORMALITY, IMPROVED IN INFERIOR LEADS T WAVE INVERSION NOW EVIDENT IN ANTEROLATERAL LEADS Confirmed by BIBI OLIVA MD ([id number]) on 10/12/2019 3:11:48 PM Referred By: Confirmed By:BIBI OLIVA MD
--- NOTE | 2019-10-12 15:13 | EKG ---
Test Reason : Blood Pressure : / mmHG Vent. Rate : 072 BPM Atrial Rate : 072 BPM P-R Int : 194 ms QRS Dur : 112 ms QT Int : 428 ms P-R-T Axes : 051 019 088 degrees QTc Int : 468 ms NORMAL SINUS RHYTHM POSSIBLE LEFT ATRIAL ENLARGEMENT LEFT VENTRICULAR HYPERTROPHY CANNOT RULE OUT INFERIOR INFARCT , AGE UNDETERMINED ANTEROSEPTAL INFARCT (CITED ON OR BEFORE 11-MAR-2012) T WAVE ABNORMALITY, CONSIDER LATERAL ISCHEMIA ABNORMAL ECG WHEN COMPARED WITH ECG OF 11-OCT-2019 16:59, NO SIGNIFICANT CHANGE WAS FOUND Confirmed by BIBI OLIVA MD ([id number]) on 10/12/2019 3:12:38 PM Referred By: Confirmed By:BIBI OLIVA MD
--- NOTE | 2019-10-12 15:13 | EKG ---
Test Reason : Blood Pressure : / mmHG Vent. Rate : 075 BPM Atrial Rate : 075 BPM P-R Int : 198 ms QRS Dur : 104 ms QT Int : 414 ms P-R-T Axes : 051 034 087 degrees QTc Int : 462 ms NORMAL SINUS RHYTHM POSSIBLE LEFT ATRIAL ENLARGEMENT LEFT VENTRICULAR HYPERTROPHY ANTERIOR INFARCT (CITED ON OR BEFORE 11-MAR-2012) T WAVE ABNORMALITY, CONSIDER LATERAL ISCHEMIA ABNORMAL ECG WHEN COMPARED WITH ECG OF 11-OCT-2019 15:40, PREMATURE VENTRICULAR COMPLEXES ARE NO LONGER PRESENT Confirmed by BIBI OLIVA MD ([id number]) on 10/12/2019 3:12:47 PM Referred By: Confirmed By:BIBI OLIVA MD
[2019-10-12] MEDS: ATORVASTATIN CA 80 MG TABLET (FP) PO SCH (22:43)
[2019-10-13 06:47] LABS: BASO % 0.7 % (0-2.0); MCH 22.1 pg (25.7-33.7); MCHC 32.4 g/dl (32.0-35.9); MEAN CELL VOLUME 68.2 fl (80-96); MEAN PLT VOLUME 8.8 fl (7.5-11.1); MONO % 10.3 % (3.8-10.2); PLATELET COUNT 201 K/MM3 (134-434); RBC 5.43 M/mm3 (4.00-5.60); RDW 17.1 % (11.9-15.9); WHITE BLOOD COUNT 4.2 K/mm3 (4.0-10.0)
[2019-10-13 07:46] LABS: ALBUMIN 3.5 g/dl (3.4-5.0); BILIRUBIN,TOTAL 0.8 mg/dL (0.2-1); BLOOD UREA NITROGEN 10.6 mg/dL (7-18); CALCIUM 8.6 mg/dL (8.5-10.1); CREATININE 1.3 mg/dL (0.55-1.3); MAGNESIUM 2.4 mg/dL (1.8-2.4); PHOSPHOROUS 3.5 mg/dL (2.5-4.9); POTASSIUM 3.9 mmol/L (3.5-5.1); TOT PROT 6.2 g/dl (6.4-8.2)
--- NOTE | 2019-10-13 07:54 | PN ---
Teaching Attending Note Name of Resident: Julian Black ATTENDING PHYSICIAN STATEMENT I saw and evaluated the patient. I reviewed the resident's note and discussed the case with the resident. I agree with the resident's findings and plan as documented. SUBJECTIVE: No complaint of chest pain or worsening weakness OBJECTIVE: Vital Signs Temperature 98.5 F 10/13/19 05:53 Pulse Rate 65 10/13/19 05:53 Respiratory Rate 18 10/13/19 05:53 Blood Pressure 146/94 10/13/19 05:53 O2 Sat by Pulse Oximetry (%) 100 10/12/19 21:00 General: Young man, comfortable, not in distress HEENT; mucous membranes moist, no anemia, no jaundice, PERRLA, no nystagmus Neck: No JVD, supple, no bruit, thyroid palpably normal, normal carotid pulsations. Chest: Nontender, clear to auscultation bilaterally CVS: S1-S2 regular no murmur/gallop/rub Abdomen: Nondistended, soft, bowel sounds present. Extremities: No edema., No calf tenderness, pulses present TRAINING AND QUALITY MANAGER: AO X3 CBC, BMP 10/13/19 05:20 10/13/19 05:20 Carotid Doppler: Moderate 50 to 59% stenosis of right carotid artery and plaque left carotid artery Echocardiogram: Normal ejection fraction EKG: Troponin I: Rising today value 2.46 MRI brain: Report pending ASSESSMENT AND PLAN:60 multiple medical comorbidities history of hypertension, hyperlipidemia, multiple CVA, paroxysmal atrial fibrillation on anticoagulation : Patient is on ILR for cryptogenic stroke in the past, at baseline patient has right upper extremity weakness and dysarthria, heart failure with reduced ejection fraction last documented EF was 40% yesterday echo shows normal ejection fraction, CAD status post LAD PCI, was presented with an episode of unresponsiveness with worsening right-sided facial droop and right upper extremity weakness, CT head shows no acute changes multiple old infarct with encephalomalacia, at baseline CKD stage III, patient returned to baseline denies any worsening weakness, chest pain or shortness of breath evaluated by neurology, cardiology, nephrology consult. PLAN: Patient can be discharged home once cleared by cardiology and PT. Problem List - Problems (1) Unresponsiveness Assessment/Plan: Patient remained stable since hospitalization, evaluated by neurology and cardiology discussed with NEUROLOGY unlikely seizure, MRI does not show no new stroke, also related to a cardiology recommended continue current management outpatient stress test.. Code(s): R41.89 - OTH SYMPTOMS AND SIGNS W COGNITIVE FUNCTIONS AND AWARENESS (2) Elevated troponin Assessment/Plan: Denies any chest pain EKG remained stable can be demand ischemia, continue aspirin, statin, beta-nakul telemetry monitoring repeat echo shows improved ejection fraction troponin I now stable cardiology recommend outpatient stress test. Code(s): R79.89 - OTHER SPECIFIED ABNORMAL FINDINGS OF BLOOD CHEMISTRY (3) Systolic heart failure, ACC/AHA stage C Assessment/Plan: Patient has systolic heart failure, NYHA class II, will repeat echocardiogram showed improved ejection fraction, resume all home outpatient medication Code(s): I50.20 - UNSPECIFIED SYSTOLIC (CONGESTIVE) HEART FAILURE (4) Hypertension Assessment/Plan: Continue all home medication Code(s): I10 - ESSENTIAL (PRIMARY) HYPERTENSION (5) Paroxysmal atrial fibrillation Assessment/Plan: Rate controlled continue anticoagulation with apixaban at present in normal sinus rhythm. Code(s): I48.0 - PAROXYSMAL ATRIAL FIBRILLATION (6) Hyperlipidemia Assessment/Plan: Continue statin Code(s): E78.5 - HYPERLIPIDEMIA, UNSPECIFIED Qualifiers: Hyperlipidemia type: pure hypercholesterolemia Qualified Code(s): E78.00 - Pure hypercholesterolemia, unspecified; E78.0 - Pure hypercholesterolemia (7) Aphasia as late effect of cerebrovascular accident Assessment/Plan: Needs stroke work-up follow-up neurology recommendations. Code(s): I69.320 - APHASIA FOLLOWING CEREBRAL INFARCTION
[2019-10-13] MEDS: ASPIRIN COATED 81 MG TABLET.EC PO SCH (10:00)
[2019-10-13] MEDS: APIXABAN 5 MG TABLET PO SCH ×2 (10:00→22:13)
[2019-10-13] MEDS: metoPROLOL SUCCINATE 25 MG TAB.SR.24H (FP) PO SCH (10:02)
--- NOTE | 2019-10-13 10:21 | PN ---
Progress Note (short form) - Note Progress Note: cc aphasia and right sided weakness HPI 60 year old male history of htn,hld, right sided weakness , atrial firb on eliquis. Patinet was confused and difficulty talking and symptoms resolved and now back to baseline. Patient has mild right sided facial droopiness and not moving arm, though he do have right arm weakness as baseline. Patient has no new syptoms, and his focal neurological syptom shas resolved. mri of brain was unremarkable NEUROLOGICAL EXAMINATION Alert follow command, vss, neck is supple difficulty repeting and word findingd difficulty mild right sided hemiparesis ct head showed bihemispheric stroke right occpital and left mca carotid ultrasound showed right ica moderate stenosis mri of brain unremarkable vascular surgery pending Assessment/PIlan TIA , secondary to atrial fibrillation he is on eliquis and statin . carotid ultrasound showed right moderate stenosis these episode, there is remote possibility of seizure as it happened twice , though there was no tonic clonic activity, tongue bite or incontinence Plan: continue high dose of statin, anticoagulation and aspirin mri of brain was unremarkable continue current medicaiton hold aed for now , spoke to primary team pt and speech therapy Thanking you so much Deniz Vasquez MD
--- NOTE | 2019-10-13 11:15 | PN ---
Progress Note, SLIP MAKER - Note Progress Note: Selected Entries 10/13/19 10/13/19 10/13/19 01:29 05:53 09:54 Breakfast Temperature 97.8 F 98.5 F 98.4 F 10/13/19 10:18 Breakfast 100% Temperature Laboratory Tests 10/13/19 05:20 WBC 4.2 mri of brain unremarkable Tolerating diet. Pt amenable to speech tx upon d/c, working on functional communication. Good prognosis for improvement in grammar and word finding expressive language
--- NOTE | 2019-10-13 11:47 | PN ---
Progress Note, Physician History of Present Illness: 59 yo M with h/o HTN, HLD, CAD s/p AWMI, s/p Synergy 3.5x32 MORRIS mLAD 05/30/2016 , LV systolic dysfunction, CVA (04/06 with residual R sided weakness, visual deficits and expressive aphasia), orthostatic hypotension, CKD, PAF->SR on ILR placed on Eliquis last seen in office 08/2019 admitted with confusion dysarthria since resolved and now back to baseline. Patient has mild right sided facial droopiness and not moving arm, though he do have right arm weakness as baseline. ct head showed old bihemispheric stroke right occpital and left mca w/o new strokes, carotid ultrasound showed right ica moderate stenosis. Patient denies DEXTER, convulsions, vision change, palpitations, cough, wheezing, orthopnea, PND, leg swelling/pain, N/V, F,C, CP, SOB, urinary complaints, hematuria, BRPR, abdominal pain, diarrhea, constipation, lightheadedness, true syncope, weakness, sensory changes. - Current Medication List Current Medications: Active Medications Acetaminophen (Tylenol -) 650 mg PO Q6H PRN PRN Reason: PAIN LEVEL 4 - 6 Apixaban (Eliquis -) 5 mg PO BID [facility] Last Admin: 10/13/19 10:00 Dose: 5 mg Aspirin (Ecotrin -) 81 mg PO DAILY [facility] Last Admin: 10/13/19 10:00 Dose: 81 mg Atorvastatin Calcium (Lipitor -) 80 mg PO HS [facility] Last Admin: 10/12/19 22:43 Dose: 80 mg Metoprolol Succinate (Toprol Xl -) 50 mg PO DAILY [facility] Last Admin: 10/13/19 10:02 Dose: 50 mg - Objective Vital Signs: Vital Signs Temperature 98.4 F 10/13/19 09:54 Pulse Rate 69 10/13/19 09:59 Respiratory Rate 18 10/13/19 09:54 Blood Pressure 138/83 10/13/19 09:59 O2 Sat by Pulse Oximetry (%) 99 10/13/19 09:00 Labs: CBC, BMP 10/13/19 05:20 10/13/19 05:20 INR, PTT INR 1.10 (0.83-1.09) H 10/11/19 14:49 Problem List - Problems (1) Diastolic dysfunction without heart failure Code(s): I51.89 - OTHER ILL-DEFINED HEART DISEASES (2) Aphasia as late effect of cerebrovascular accident Code(s): I69.320 - APHASIA FOLLOWING CEREBRAL INFARCTION (3) Coronary artery disease Code(s): I25.10 - ATHSCL HEART DISEASE OF [place] CORONARY ARTERY W/O ANG PCTRS Qualifiers: Coronary Disease-Associated Artery/Lesion type: [place] artery [place] vs. transplanted heart: [place] heart Associated angina: without angina Qualified Code(s): I25.10 - Atherosclerotic heart disease of [place] coronary artery without angina pectoris (4) Hyperlipidemia Code(s): E78.5 - HYPERLIPIDEMIA, UNSPECIFIED Qualifiers: Hyperlipidemia type: pure hypercholesterolemia Qualified Code(s): E78.00 - Pure hypercholesterolemia, unspecified; E78.0 - Pure hypercholesterolemia (5) Old anterior myocardial infarction Code(s): I25.2 - OLD MYOCARDIAL INFARCTION (6) ADIA (acute kidney injury) Code(s): N17.9 - ACUTE KIDNEY FAILURE, UNSPECIFIED (7) Chronic anticoagulation Code(s): Z79.01 - PHYSICIAN [employer] C[employer] SPORTS MEDICINE (CURRENT) USE OF ANTICOAGULANTS (8) S/P coronary artery stent placement Code(s): Z95.5 - PRESENCE OF CORONARY ANGIOPLASTY IMPLANT AND GRAFT Assessment/Plan 10/11/2019 Echo: Normal LV size with borderline HK and apical, apical septal AK , abnl LV compliance, tr-mild MR 11/29/2018 Echo: Moderate decreased LVEF 40% with anterior, anteroseptal and apical HK, normal RV fxn, mild TR, tr [place] IMPRESSION: Bilateral cerebellar chronic infarction/encephalomalacia. Large area of encephalomalacia/chronic infarct again seen involving the left temporal , frontal, parietal and occipital lobe with mild exvacuodilatation of the left lateral ventricle. No gross acute infarct or acute intracranial hemorrhage are identified. Correlate clinically and if needed correlation with MRI of the brain would be more sensitive. Doppler: Impression: There is mild intimal thickening in the right common carotid artery moderate size plaque at the right common carotid bifurcation/bulb with hemodynamically significant stenosis of 50-69%. Moderate intimal thickening in the left common carotid artery with suggestion of small soft plaques. Small-to- moderate sized plaques at the left common carotid bifurcation and bulb without evidence of hemodynamically significant stenosis. Reversal of flow in visualized portion of the proximal right vertebral artery. The rest of the right vertebral artery was not visualized. Differential diagnosis includes a subclavian steal versus distal right vertebral artery obstruction. Correlation with CTA of the neck including the aortic arch is needed for further evaluation. 1. Recurrent TIA 2. Paroxysmal atrial fibrillation/flutter->SR [id number] on Eliquis, possible noncompliance 3. Acute on CKD (pre-renal) improving 3. Previous stroke with residual R sided sensory loss, visual deficits and expressive aphasia 4. Moderate BARB stenosis 6. CAD s/p AWMI PCI LAD, demand ischemia 7. HTN 8. Hyperlipidemia 9. LV diastolic dysfunction with improved LVEF 10. Orthostatic syncope 11. Bilateral hydrocele repair P:1. Continue Toprol XL 50 qd, Eliquis 5 bid, Lipitor 40 qd, agree with add ASA 81 qd, resume ARB once renal fxn stabilizes 2. F/u MRI brain, trend troponins to document peak 3. PT and speech therapy 4. Thank you for consultative opportunity
--- NOTE | 2019-10-13 11:50 | PN ---
Progress Note, Physician History of Present Illness: Confusion since resolved, dysarthria, right UE weakness now back to baseline. Denies chest pain, dyspnea, palpitations, orthopnea, PND or LE edema. - Current Medication List Current Medications: Active Medications Acetaminophen (Tylenol -) 650 mg PO Q6H PRN PRN Reason: PAIN LEVEL 4 - 6 Apixaban (Eliquis -) 5 mg PO BID [facility] Last Admin: 10/13/19 10:00 Dose: 5 mg Aspirin (Ecotrin -) 81 mg PO DAILY [facility] Last Admin: 10/13/19 10:00 Dose: 81 mg Atorvastatin Calcium (Lipitor -) 80 mg PO HS [facility] Last Admin: 10/12/19 22:43 Dose: 80 mg Metoprolol Succinate (Toprol Xl -) 50 mg PO DAILY [facility] Last Admin: 10/13/19 10:02 Dose: 50 mg - Objective Vital Signs: Vital Signs Temperature 98.4 F 10/13/19 09:54 Pulse Rate 69 10/13/19 09:59 Respiratory Rate 18 10/13/19 09:54 Blood Pressure 138/83 10/13/19 09:59 O2 Sat by Pulse Oximetry (%) 99 10/13/19 09:00 Constitutional: Yes: No Distress, Calm, Thin Neck: Yes: Supple Cardiovascular: Yes: Regular Rate and Rhythm Respiratory: Yes: Regular, CTA Bilaterally Gastrointestinal: Yes: Normal Bowel Sounds, Soft Edema: No Neurological: Yes: Dysarthria, Facial Droop, Pre-Existing Deficit, Weakness Labs: CBC, BMP 10/13/19 05:20 10/13/19 05:20 INR, PTT INR 1.10 (0.83-1.09) H 10/11/19 14:49 - ....Imaging EKG: Report Reviewed (Tele: NSR no PAF) Problem List - Problems (1) Diastolic dysfunction without heart failure Code(s): I51.89 - OTHER ILL-DEFINED HEART DISEASES (2) Aphasia as late effect of cerebrovascular accident Code(s): I69.320 - APHASIA FOLLOWING CEREBRAL INFARCTION (3) Coronary artery disease Code(s): I25.10 - ATHSCL HEART DISEASE OF [place] CORONARY ARTERY W/O ANG PCTRS Qualifiers: Coronary Disease-Associated Artery/Lesion type: [place] artery [place] vs. transplanted heart: [place] heart Associated angina: without angina Qualified Code(s): I25.10 - Atherosclerotic heart disease of [place] coronary artery without angina pectoris (4) Hyperlipidemia Code(s): E78.5 - HYPERLIPIDEMIA, UNSPECIFIED Qualifiers: Hyperlipidemia type: pure hypercholesterolemia Qualified Code(s): E78.00 - Pure hypercholesterolemia, unspecified; E78.0 - Pure hypercholesterolemia (5) Old anterior myocardial infarction Code(s): I25.2 - OLD MYOCARDIAL INFARCTION (6) ADIA (acute kidney injury) Code(s): N17.9 - ACUTE KIDNEY FAILURE, UNSPECIFIED (7) Chronic anticoagulation Code(s): Z79.01 - SKILLED NURSING (CURRENT) USE OF ANTICOAGULANTS (8) S/P coronary artery stent placement Code(s): Z95.5 - PRESENCE OF CORONARY ANGIOPLASTY IMPLANT AND GRAFT Assessment/Plan 10/11/2019 Echo: Normal LV size with borderline HK and apical, apical septal AK , abnl LV compliance, tr-mild MR 11/29/2018 Echo: Moderate decreased LVEF 40% with anterior, anteroseptal and apical HK, normal RV fxn, mild TR, tr [place] ct head showed bihemispheric stroke right occpital and left mca carotid ultrasound showed right ica moderate 50-69% stenosis mri of brain unremarkable for acute/subacute strokes, + old strokes 1. Recurrent TIA 2. Paroxysmal atrial fibrillation/flutter->SR [id number] on Eliquis, possible noncompliance 3. Acute on CKD (pre-renal) improving to baseline 4. Previous stroke with residual R sided sensory loss, visual deficits and expressive aphasia 5. Moderate BARB stenosis 6. CAD s/p AWMI PCI LAD, demand ischemia 7. HTN 8. Hyperlipidemia 9. LV diastolic dysfunction with improved LVEF 10. Orthostatic syncope 11. Bilateral hydrocele repair P:1. Continue Toprol XL 50 qd, Eliquis 5 bid, Lipitor 80 qd, ASA 81 qd, resume Erdarbi equivalent as renal fxn stabilized 2. Troponins plateauing, patient is scheduled for Lexiscan myoview as outpatient 3. PT and speech therapy
--- NOTE | 2019-10-13 12:48 | PN ---
Progress Note (short form) - Note Progress Note: Renal follow up for ADIA Seen and examined at the bedside awake and alert offers no acute complaints denies any chest pain, abdominal pain, fever or chills making urine Vital Signs Temperature 98.4 F 10/13/19 09:54 Pulse Rate 69 10/13/19 09:59 Respiratory Rate 18 10/13/19 09:54 Blood Pressure 138/83 10/13/19 09:59 O2 Sat by Pulse Oximetry (%) 99 10/13/19 09:00 Intake & Output 10/10/19 10/11/19 10/12/19 10/13/19 23:59 23:59 23:59 23:59 Intake Total 259 1845 370 Balance 259 1845 370 Weight 85.502 kg NAD irregular, no M/R CTA, no rales soft NT/ND, no bladder distension no LE edema, clubbing or cyanosis Right side weakness CBC, BMP 10/13/19 05:20 10/13/19 05:20 Current Medications Acetaminophen (Tylenol -) 650 mg PO Q6H PRN PRN Reason: PAIN LEVEL 4 - 6 Apixaban (Eliquis -) 5 mg PO BID [facility] Last Admin: 10/13/19 10:00 Dose: 5 mg Aspirin (Ecotrin -) 81 mg PO DAILY [facility] Last Admin: 10/13/19 10:00 Dose: 81 mg Atorvastatin Calcium (Lipitor -) 80 mg PO HS [facility] Last Admin: 10/12/19 22:43 Dose: 80 mg Metoprolol Succinate (Toprol Xl -) 50 mg PO DAILY [facility] Last Admin: 10/13/19 10:02 Dose: 50 mg Valsartan (Diovan -) 80 mg PO DAILY [facility] 59 year old gentleman with history of CVA with right side weakness, hypertension, hyperlipidemia who was found down and with facial drop admitted for r/o CVA/TIA and found to have ADIA with Cr of 2. 1. Acute kidney injury likely due to hemodynamic changes +/- volume depletion 2. Acute TIA vs. CVA 3. Hypertension 4. Hyperlipidemia 5. Contrast exposure in patient with decreased eGFR Renal function improved to baseline restarted on ARB off IVF now. Encouraged oral hydration and solute intake Would monitor renal function for another 24 hours to monitor for KENIA Thank you Mac Watkins DO
--- NOTE | 2019-10-13 19:10 | PN ---
Progress Note (short form) - Note Progress Note: Vascular Surgery Carotid doppler images reviewed. Left side with normal PSV/EDV. Right side - ICA is at best 40-50 percent according to PSV/EDV. Medical managment. No need for any surgery Jon Murdock DO
[2019-10-13] MEDS: ATORVASTATIN CA 80 MG TABLET (FP) PO SCH (22:14)
[2019-10-13] MEDS ORDERED: LISINOPRIL 20 MG TABLET (FP) PO ONE ×2 (23:00→23:45)
--- NOTE | 2019-10-13 23:03 | PN ---
Progress Note (short form) - Note Progress Note: Received call from nurse stating patient's BP elevated to 160/102 on manual reading. Gave one time dose of home Lisinopril medication as admission notes states to restart home MARGOTH when ADIA resolved. BUN/Cr within normal limits now. Primary team to decide on continuing home MARGOTH vs. other management for HTN.
[2019-10-14 07:51] LABS: ANION GAP 5 MMOL/L (8-16); BLOOD UREA NITROGEN 9.4 mg/dL (7-18); CALCIUM 9.2 mg/dL (8.5-10.1); CHLORIDE 105 mmol/L (98-107); CO2 28 mmol/L (21-32); CREATININE 1.2 mg/dL (0.55-1.3); GLUCOSE,RANDOM 84 mg/dL (74-106); POTASSIUM 4.1 mmol/L (3.5-5.1); SODIUM 138 mmol/L (136-145)
[2019-10-14] MEDS: ASPIRIN COATED 81 MG TABLET.EC PO SCH (09:25)
[2019-10-14] MEDS: APIXABAN 5 MG TABLET PO SCH ×2 (09:26→21:19)
[2019-10-14] MEDS: metoPROLOL SUCCINATE 25 MG TAB.SR.24H (FP) PO SCH (09:26)
[2019-10-14] MEDS ORDERED: VALSARTAN 80 MG TABLET (UD) PO SCH (10:00)
--- NOTE | 2019-10-14 11:15 | PN ---
Progress Note, Physician History of Present Illness: Confusion since resolved, dysarthria, right UE weakness now back to baseline. Denies chest pain, dyspnea, palpitations, orthopnea, PND or LE edema. - Current Medication List Current Medications: Active Medications Acetaminophen (Tylenol -) 650 mg PO Q6H PRN PRN Reason: PAIN LEVEL 4 - 6 Apixaban (Eliquis -) 5 mg PO BID [facility] Last Admin: 10/14/19 09:26 Dose: 5 mg Aspirin (Ecotrin -) 81 mg PO DAILY [facility] Last Admin: 10/14/19 09:25 Dose: 81 mg Atorvastatin Calcium (Lipitor -) 80 mg PO HS [facility] Last Admin: 10/13/19 22:14 Dose: 80 mg Metoprolol Succinate (Toprol Xl -) 50 mg PO DAILY [facility] Last Admin: 10/14/19 09:26 Dose: 50 mg Valsartan (Diovan -) 80 mg PO DAILY [facility] Last Admin: 10/14/19 09:25 Dose: 80 mg - Objective Vital Signs: Vital Signs Temperature 98.7 F 10/14/19 09:24 Pulse Rate 68 10/14/19 09:24 Respiratory Rate 17 10/14/19 09:24 Blood Pressure 136/90 10/14/19 09:24 O2 Sat by Pulse Oximetry (%) 99 10/13/19 21:00 Constitutional: Yes: No Distress, Calm Neck: Yes: Supple Cardiovascular: Yes: Regular Rate and Rhythm Respiratory: Yes: Regular, CTA Bilaterally Gastrointestinal: Yes: Normal Bowel Sounds, Soft Edema: No Labs: CBC, BMP 10/13/19 05:20 10/14/19 06:00 INR, PTT INR 1.10 (0.83-1.09) H 10/11/19 14:49 - ....Imaging EKG: Report Reviewed (Tele: NSR, no recurrent PAF) Problem List - Problems (1) Diastolic dysfunction without heart failure Code(s): I51.89 - OTHER ILL-DEFINED HEART DISEASES (2) Aphasia as late effect of cerebrovascular accident Code(s): I69.320 - APHASIA FOLLOWING CEREBRAL INFARCTION (3) Coronary artery disease Code(s): I25.10 - ATHSCL HEART DISEASE OF [place] CORONARY ARTERY W/O ANG PCTRS Qualifiers: Coronary Disease-Associated Artery/Lesion type: [place] artery [place] vs. transplanted heart: [place] heart Associated angina: without angina Qualified Code(s): I25.10 - Atherosclerotic heart disease of [place] coronary artery without angina pectoris (4) Hyperlipidemia Code(s): E78.5 - HYPERLIPIDEMIA, UNSPECIFIED Qualifiers: Hyperlipidemia type: pure hypercholesterolemia Qualified Code(s): E78.00 - Pure hypercholesterolemia, unspecified; E78.0 - Pure hypercholesterolemia (5) Old anterior myocardial infarction Code(s): I25.2 - OLD MYOCARDIAL INFARCTION (6) ADIA (acute kidney injury) Code(s): N17.9 - ACUTE KIDNEY FAILURE, UNSPECIFIED (7) Chronic anticoagulation Code(s): Z79.01 - DINING SERVICES MANAGER (CURRENT) USE OF ANTICOAGULANTS (8) S/P coronary artery stent placement Code(s): Z95.5 - PRESENCE OF CORONARY ANGIOPLASTY IMPLANT AND GRAFT Assessment/Plan 10/11/2019 Echo: Normal LV size with borderline HK and apical, apical septal AK , abnl LV compliance, tr-mild MR 11/29/2018 Echo: Moderate decreased LVEF 40% with anterior, anteroseptal and apical HK, normal RV fxn, mild TR, tr [place] ct head showed bihemispheric stroke right occpital and left mca carotid ultrasound showed right ica moderate 50-69% stenosis mri of brain unremarkable for acute/subacute strokes, + old strokes 1. Recurrent TIA 2. Paroxysmal atrial fibrillation/flutter->SR [id number] on Eliquis, possible noncompliance 3. Acute on CKD (pre-renal) improving to baseline 4. Previous stroke with residual R sided sensory loss, visual deficits and expressive aphasia 5. Moderate 40-50% BARB stenosis 6. CAD s/p AWMI PCI LAD, demand ischemia 7. HTN 8. Hyperlipidemia 9. LV diastolic dysfunction with improved LVEF 10. Orthostatic syncope 11. Bilateral hydrocele repair P:1. Continue Toprol XL 50 qd, Eliquis 5 bid, Lipitor 80 qd, ASA 81 qd, resume Erdarbi equivalent as renal fxn stabilized 2. Trend Troponins to document peak, patient is scheduled for Lexiscan myoview as outpatient 3. PT and speech therapy 4. D/c planning with f/u with me in office
[2019-10-14] MEDS ORDERED: VALSARTAN 160 MG TABLET (UD) PO SCH (11:23)
--- NOTE | 2019-10-14 17:00 | PN ---
Progress Note (short form) - Note Progress Note: 60 year old male history of htn,hld, right sided weakness , atrial firb on eliquis. Patinet was confused and difficulty talking and symptoms resolved and now back to baseline. Patient has mild right sided facial droopiness and not moving arm, though he do have right arm weakness as baseline. Patient has no new syptoms, and his focal neurological syptom shas resolved. mri of brain was unremarkable no new complain, his troponin I is going up. NEUROLOGICAL EXAMINATION Alert follow command, vss, neck is supple difficulty repeting and word findingd difficulty mild right sided hemiparesis ct head showed bihemispheric stroke right occpital and left mca carotid ultrasound showed right ica moderate stenosis mri of brain unremarkable vascular surgery consult appreciated, no need for any intervention Assessment/PIlan TIA , secondary to atrial fibrillation he is on eliquis and statin . carotid ultrasound showed right moderate stenosis these episode, there is remote possibility of seizure as it happened twice , though there was no tonic clonic activity, tongue bite or incontinence Plan: continue high dose of statin, anticoagulation and aspirin mri of brain was unremarkable continue current medicaiton hold AED for now pt and speech therapy Thanking you so much Deniz Vasquez MD
--- NOTE | 2019-10-14 17:03 | PN ---
Progress Note, Physician Chief Complaint: weakness History of Present Illness: seen and examined at bedside. feeling well, no complaints, wants to go home, denies sob, palpitations, nvd. - Current Medication List Current Medications: Active Medications Acetaminophen (Tylenol -) 650 mg PO Q6H PRN PRN Reason: PAIN LEVEL 4 - 6 Apixaban (Eliquis -) 5 mg PO BID [facility] Last Admin: 10/14/19 09:26 Dose: 5 mg Aspirin (Ecotrin -) 81 mg PO DAILY [facility] Last Admin: 10/14/19 09:25 Dose: 81 mg Atorvastatin Calcium (Lipitor -) 80 mg PO HS [facility] Last Admin: 10/13/19 22:14 Dose: 80 mg Metoprolol Succinate (Toprol Xl -) 50 mg PO DAILY [facility] Last Admin: 10/14/19 09:26 Dose: 50 mg Valsartan (Diovan -) 160 mg PO DAILY [facility] - Objective Vital Signs: Vital Signs Temperature 98.2 F 10/14/19 13:00 Pulse Rate 67 10/14/19 13:00 Respiratory Rate 17 10/14/19 13:00 Blood Pressure 154/99 10/14/19 13:00 O2 Sat by Pulse Oximetry (%) 97 10/14/19 09:00 Constitutional: Yes: Well Nourished, No Distress, Calm Cardiovascular: Yes: WNL, Regular Rate and Rhythm Respiratory: Yes: WNL, Regular, CTA Bilaterally Gastrointestinal: Yes: WNL, Normal Bowel Sounds, Soft Musculoskeletal: Yes: WNL Extremities: Yes: WNL Edema: No Neurological: Yes: Other (right sided paresis) Labs: CBC, BMP 10/13/19 05:20 10/14/19 06:00 INR, PTT INR 1.10 (0.83-1.09) H 10/11/19 14:49 Problem List - Problems (1) Elevated troponin Code(s): R79.89 - OTHER SPECIFIED ABNORMAL FINDINGS OF BLOOD CHEMISTRY (2) Hypertension Code(s): I10 - ESSENTIAL (PRIMARY) HYPERTENSION (3) Paroxysmal atrial fibrillation Code(s): I48.0 - PAROXYSMAL ATRIAL FIBRILLATION (4) Systolic heart failure, ACC/AHA stage C Code(s): I50.20 - UNSPECIFIED SYSTOLIC (CONGESTIVE) HEART FAILURE (5) Aphasia as late effect of cerebrovascular accident Code(s): I69.320 - APHASIA FOLLOWING CEREBRAL INFARCTION (6) Coronary artery disease Code(s): I25.10 - ATHSCL HEART DISEASE OF [place] CORONARY ARTERY W/O ANG PCTRS Qualifiers: Coronary Disease-Associated Artery/Lesion type: [place] artery [place] vs. transplanted heart: [place] heart Associated angina: without angina Qualified Code(s): I25.10 - Atherosclerotic heart disease of [place] coronary artery without angina pectoris (7) Hyperlipidemia Code(s): E78.5 - HYPERLIPIDEMIA, UNSPECIFIED Qualifiers: Hyperlipidemia type: pure hypercholesterolemia Qualified Code(s): E78.00 - Pure hypercholesterolemia, unspecified; E78.0 - Pure hypercholesterolemia Assessment/Plan Assessment: TIA Elevated troponin P. Afib AOCKD Hx CVA with right sided paresis and expressive aphasia CAD HTN HLD D. CHF Plan: -trop elevated to 4, check another set until peak, patient without chest pain/ sob -c/w bb/asa/statin/arb -on eliquis -scheduled for stress test outpatient -BP controlled on current meds -PT/speech therapy -no further neuro valentine -cardio and neuro following
[2019-10-14] MEDS ORDERED: VALSARTAN 160 MG TABLET (UD) PO ONE (19:07)
[2019-10-14] MEDS: ATORVASTATIN CA 80 MG TABLET (FP) PO SCH (21:19)
[2019-10-15 09:13] VITALS: BP 104/60; PULSE 80; TEMP 97.9
[2019-10-15] MEDS: APIXABAN 5 MG TABLET PO SCH (09:14)
[2019-10-15] MEDS: metoPROLOL SUCCINATE 25 MG TAB.SR.24H (FP) PO SCH (09:14)
[2019-10-15] MEDS: ASPIRIN COATED 81 MG TABLET.EC PO SCH (09:14)
--- NOTE | 2019-10-15 11:09 | PN ---
Progress Note, Physician History of Present Illness: Confusion since resolved, dysarthria, right UE weakness now back to baseline. Denies chest pain, dyspnea, palpitations, orthopnea, PND or LE edema. - Current Medication List Current Medications: Active Medications Acetaminophen (Tylenol -) 650 mg PO Q6H PRN PRN Reason: PAIN LEVEL 4 - 6 Apixaban (Eliquis -) 5 mg PO BID [facility] Last Admin: 10/15/19 09:14 Dose: 5 mg Aspirin (Ecotrin -) 81 mg PO DAILY [facility] Last Admin: 10/15/19 09:14 Dose: 81 mg Atorvastatin Calcium (Lipitor -) 80 mg PO HS [facility] Last Admin: 10/14/19 21:19 Dose: 80 mg Metoprolol Succinate (Toprol Xl -) 50 mg PO DAILY [facility] Last Admin: 10/15/19 09:14 Dose: 50 mg Valsartan (Diovan -) 160 mg PO DAILY [facility] Last Admin: 10/15/19 09:14 Dose: 160 mg - Objective Vital Signs: Vital Signs Temperature 97.9 F 10/15/19 09:09 Pulse Rate 80 10/15/19 09:09 Respiratory Rate 16 10/15/19 09:09 Blood Pressure 104/60 10/15/19 09:09 O2 Sat by Pulse Oximetry (%) 98 10/15/19 10:00 Constitutional: Yes: No Distress, Calm, Thin Neck: Yes: Supple Cardiovascular: Yes: Regular Rate and Rhythm Respiratory: Yes: Regular, CTA Bilaterally Gastrointestinal: Yes: Normal Bowel Sounds, Soft Edema: No Neurological: Yes: Dysarthria, Pre-Existing Deficit, Weakness Labs: CBC, BMP 10/13/19 05:20 10/14/19 06:00 INR, PTT INR 1.10 (0.83-1.09) H 10/11/19 14:49 - ....Imaging EKG: Report Reviewed (Tele: NSR no PAF) Problem List - Problems (1) Diastolic dysfunction without heart failure Code(s): I51.89 - OTHER ILL-DEFINED HEART DISEASES (2) Aphasia as late effect of cerebrovascular accident Code(s): I69.320 - APHASIA FOLLOWING CEREBRAL INFARCTION (3) Coronary artery disease Code(s): I25.10 - ATHSCL HEART DISEASE OF [place] CORONARY ARTERY W/O ANG PCTRS Qualifiers: Coronary Disease-Associated Artery/Lesion type: [place] artery [place] vs. transplanted heart: [place] heart Associated angina: without angina Qualified Code(s): I25.10 - Atherosclerotic heart disease of [place] coronary artery without angina pectoris (4) Hyperlipidemia Code(s): E78.5 - HYPERLIPIDEMIA, UNSPECIFIED Qualifiers: Hyperlipidemia type: pure hypercholesterolemia Qualified Code(s): E78.00 - Pure hypercholesterolemia, unspecified; E78.0 - Pure hypercholesterolemia (5) Old anterior myocardial infarction Code(s): I25.2 - OLD MYOCARDIAL INFARCTION (6) ADIA (acute kidney injury) Code(s): N17.9 - ACUTE KIDNEY FAILURE, UNSPECIFIED (7) Chronic anticoagulation Code(s): Z79.01 - JAIL (CURRENT) USE OF ANTICOAGULANTS (8) S/P coronary artery stent placement Code(s): Z95.5 - PRESENCE OF CORONARY ANGIOPLASTY IMPLANT AND GRAFT Assessment/Plan 10/11/2019 Echo: Normal LV size with borderline HK and apical, apical septal [place] , abnl LV compliance, tr-mild MR 11/29/2018 Echo: Moderate decreased LVEF 40% with anterior, anteroseptal and apical HK, normal RV fxn, mild TR, tr [place] ct head showed bihemispheric stroke right occpital and left mca carotid ultrasound showed right ica moderate 50-69% stenosis mri of brain unremarkable for acute/subacute strokes, + old strokes 1. Recurrent TIA 2. Paroxysmal atrial fibrillation/flutter->SR [id number] on Eliquis, possible noncompliance 3. Acute on CKD (pre-renal) improving to baseline 4. Previous stroke with residual R sided sensory loss, visual deficits and expressive aphasia 5. Moderate 40-50% BARB stenosis 6. CAD s/p AWMI PCI LAD, demand ischemia 7. HTN 8. Hyperlipidemia 9. LV diastolic dysfunction with improved LVEF 10. Orthostatic syncope 11. Bilateral hydrocele repair P:1. Continue Toprol XL 50 qd, Eliquis 5 bid, Lipitor 80 qd, ASA 81 qd, resumed Erdarbi equivalent as renal fxn stabilized 2. Troponins downtrending, patient is scheduled for Lexiscan myoview as outpatient 3. PT and speech therapy 4. D/c planning with f/u with me in office
--- NOTE | 2019-10-15 11:31 | DS ---
Physical Examination Vital Signs: Vital Signs Temperature 97.9 F 10/15/19 09:09 Pulse Rate 80 10/15/19 09:09 Respiratory Rate 16 10/15/19 09:09 Blood Pressure 104/60 10/15/19 09:09 O2 Sat by Pulse Oximetry (%) 98 10/15/19 10:00 Findings/Remarks: seen and examined, feeling well, denies chest pain, nvd, palpitations, abdominal pain. Constitutional: Yes: Well Nourished, No Distress, Calm Cardiovascular: Yes: WNL, Regular Rate and Rhythm Respiratory: Yes: WNL, Regular, CTA Bilaterally Gastrointestinal: Yes: WNL, Normal Bowel Sounds, Soft Edema: No Neurological: Yes: Other (right sided paresis) Labs: CBC, BMP 10/13/19 05:20 10/14/19 06:00 Discharge Summary Problems reviewed: Yes Reason For Visit: CVA Current Active Problems Chronic anticoagulation (Acute) Diastolic dysfunction without heart failure (Acute) Elevated troponin (Acute) Hypertension (Acute) Paroxysmal atrial fibrillation (Acute) S/P coronary artery stent placement (Acute) Systolic heart failure, ACC/AHA stage C (Acute) Unresponsiveness (Acute) Hospital Course: 60 y/o M with hx of HTN, HLD, CVA with residual R sided weakness,CAD s/p AWMI PCI LAD, pAfib on eliquis BIBEMS found down 10/11/2019 Echo: Normal LV size with borderline HK and apical, apical septal AK , abnl LV compliance, tr-mild MR 11/29/2018 Echo: Moderate decreased LVEF 40% with anterior, anteroseptal and apical HK, normal RV fxn, mild TR, tr ME ct head showed bihemispheric stroke right occpital and left mca carotid ultrasound showed right ica moderate 50-69% stenosis mri of brain unremarkable for acute/subacute strokes, + old strokes Patient was admitted to telemetry, above studies done. No acute CVA, admitted for likely TIA Assess: TIA Elevated troponin P. Afib AOCKD Hx CVA with right sided paresis and expressive aphasia CAD HTN HLD D. CHF Plan: -trop peaked at 5, patient asymptomatic -c/w bb/asa/statin/arb-statin increased to 80 mg -on eliquis -scheduled for stress test outpatient with Dr. Casanova -BP controlled on current meds -PT/speech therapy -no further neuro valentine -patient cleared for DC home per cardio, will followup for stress test outpatient all questions answered Condition: Stable - Instructions Referrals: ON STAFF,NOT [Primary Care Provider] - - Home Medications Comprehensive Discharge Medication List: Ambulatory Orders Apixaban [Eliquis] 5 mg PO BID 08/23/19 Azilsartan Medoxomil [Edarbi] 80 mg PO DAILY 10/11/19 Metoprolol Succinate [Toprol XL -] 50 mg PO DAILY 10/11/19 Aspirin Coated [Ecotrin -] 81 mg PO DAILY tablet.ec 10/15/19 Atorvastatin Ca [Lipitor] 80 mg PO HS #30 tablet 10/15/19
--- NOTE | 2019-10-15 11:58 | PN ---
Progress Note (short form) - Note Progress Note: 60 year old male history of htn,hld, right sided weakness , atrial firb on eliquis. Patinet was confused and difficulty talking and symptoms resolved and now back to baseline. Patient has mild right sided facial droopiness and not moving arm, though he do have right arm weakness as baseline. Patient has no new syptoms, and his focal neurological syptom shas resolved. mri of brain was unremarkable patient is feeling good , no new symptoms and back to baseline from neuro point of view. NEUROLOGICAL EXAMINATION Alert follow command, vss, neck is supple difficulty repeting and word findingd difficulty mild right sided hemiparesis ct head showed bihemispheric stroke right occpital and left mca carotid ultrasound showed right ica moderate stenosis mri of brain unremarkable vascular surgery consult appreciated, no need for any intervention Assessment/PIlan TIA , secondary to atrial fibrillation he is on eliquis and statin . carotid ultrasound showed right moderate stenosis these episode, there is remote possibility of seizure as it happened twice , though there was no tonic clonic activity, tongue bite or incontinence Plan: continue high dose of statin, anticoagulation and aspirin mri of brain was unremarkable continue current medicaiton - can be discharged from neurological point of view. pt and speech therapy Thanking you so much Deinz Vasquez MD
== END 2019-10-15 14:21 | disposition home or self-care (01) | DRG 69 ==
LOC: JER 14:35 → SUPCPDRO 14:35 → JERBED 17:50 → J4S 20:26
PROVIDERS: ADMIT Internal Medicine; ATTEND Internal Medicine
DX: G45.9 Transient cerebral ischemic attack, unspecified (principal); I69.351 Hemiplegia and hemiparesis following cerebral infarction affecting right dominant side; N17.9 Acute kidney failure, unspecified; I48.92 Unspecified atrial flutter; I50.32 Chronic diastolic (congestive) heart failure; I13.0 Hypertensive heart and chronic kidney disease with heart failure and stage 1 through stage 4 chronic kidney disease, or unspecified chronic kidney disease; E78.5 Hyperlipidemia, unspecified; Z79.01 Long term (current) use of anticoagulants; R29.705 NIHSS score 5; I48.0 Paroxysmal atrial fibrillation; R79.89 Other specified abnormal findings of blood chemistry; I69.320 Aphasia following cerebral infarction; I25.10 Atherosclerotic heart disease of native coronary artery without angina pectoris; N18.9 Chronic kidney disease, unspecified; I65.21 Occlusion and stenosis of right carotid artery
CPT/HCPCS: 36415; 70450-TC; 70496-TC; 70551-TC; 71045-TC-FY; 76775-TC; 80048; 80053; 80061; 81003; 82550; 82553; 82962; 83036; 83721; 83735; 84100; 84484; 85025; 85610; 85730; 86850; 86900; 86901; 93005; 93010; 93306-TC; 93880-TC; 97116-GP; 97161-GP; 99285-25; J7030

== ENCOUNTER 2019-11-03 13:41 | Observation (INO) | payer BC ==
[2019-11-03 13:54] VITALS: TEMP 98.2; BMI 42.7
--- NOTE | 2019-11-03 14:35 | PDOC ---
History of Present Illness - General Chief Complaint: Syncope/Near Syncope Stated Complaint: SYNCOPE,R/O SEIZURE Time Seen by Provider: 11/03/19 14:34 Past History - Past Medical History Allergies/Adverse Reactions: Allergies Allergy/AdvReac Type Severity Reaction Status Date / Time No Known Drug Allergies Allergy Verified 11/03/19 13:55 "PORK CHOPS' AdvReac Nausea Uncoded 11/03/19 13:55 Home Medications: Ambulatory Orders Apixaban [Eliquis] 5 mg PO BID 08/23/19 Azilsartan Medoxomil [Edarbi] 80 mg PO DAILY 10/11/19 Metoprolol Succinate [Toprol XL -] 50 mg PO DAILY 10/11/19 Aspirin Coated [Ecotrin -] 81 mg PO DAILY tablet.ec 10/15/19 Atorvastatin Ca [Lipitor] 80 mg PO HS #30 tablet 10/15/19 Anemia: No Asthma: No Cancer: No Cardiac Disorders: Yes (CAD W/ STENTS,afib) CVA: Yes (03/2018, residual right sided weakness) COPD: No CHF: No Dementia: No Diabetes: No GI Disorders: No Disorders: No HTN: Yes Hypercholesterolemia: Yes Liver Disease: No Seizures: No Thyroid Disease: No - Surgical History Cardiac Surgery: Yes (STENTS x3) - Immunization History Immunization Up to Date: Yes - Psycho Social/Smoking Cessation Hx Smoking Status: Yes Smoking History: Unknown if ever smoked Have you smoked in the past 12 months: Yes Number of Cigarettes Smoked Daily: 4 If you are a former smoker, when did you quit?: 2 years ago 'Breaking Loose' booklet given: 08/23/19 Hx Alcohol Use: No Drug/Substance Use Hx: No Substance Use Type: None Hx Substance Use Treatment: No *Physical Exam - Vital Signs Last Vital Signs Temp Pulse Resp BP Pulse Ox 98.2 F 70 16 128/81 100 11/03/19 13:45 11/03/19 13:45 11/03/19 13:45 11/03/19 13:45 11/03/19 13:45 11/03/19 15:21 59 y/o male PMH HTN, HLD, CVA (RIGHT sided residual deficits), CAD, pAfib on Eliquis, systolic HF EF 40% brought is from [employer] after family witnessed period of unresponsiveness/syncope while seated. Pt states he cannot recall the event precisely but states that he vomited x1, food containing, nbnb. There was no pre-syncopal symptoms. He denies CP, palpitations, aura, numbness/tingling, and dizziness. He did not hit his head. There was no tongue biting. He denies recent illness, sick contacts, recent travel. He denies nausea, diarrhea, constipation, chills, and fever. PE AOx3, baseline dysarthria DEBBIE EOMI CTAB RRR S1 S2 no RGM 4/5 RUE and RLE weakness, gross sensation intact, patellar reflexes BL not elicited A/P Syncope vs CVA vs seizure vs heart block - CBC, CMP, UA, EKG - Head CT - Carotid Doppler 11/03/19 15:42 No acute changes on head CT or CXR 11/03/19 16:[address] Barnes for admission to tele-obs under Dr. Howe ED Treatment Course - LABORATORY CBC & Chemistry Diagram: 11/03/19 14:30 11/03/19 14:30 Discharge - Discharge Information Problems reviewed: Yes Clinical Impression/Diagnosis: Syncope Qualifiers: Syncope type: unspecified Qualified Code(s): R55 - Syncope and collapse - Follow up/Referral - Patient Discharge Instructions - Post Discharge Activity Addendum entered and electronically signed by Graham Sun, RESIDENT 23:50: ED Progress Note - Progress Note Progress Note: REVIEW OF SYSTEMS CONSTITUTIONAL: Absent: fever, chills, diaphoresis, generalized weakness, malaise, loss of appetite, weight change HEENT: Absent: rhinorrhea, nasal congestion, throat pain, throat swelling, difficulty swallowing, mouth swelling, ear pain, eye pain, visual changes CARDIOVASCULAR: Absent: chest pain, syncope, palpitations, irregular heart rate, lightheadedness , peripheral edema RESPIRATORY: Absent: cough, shortness of breath, dyspnea with exertion, orthopnea, wheezing, stridor, hemoptysis GASTROINTESTINAL: Absent: abdominal pain, abdominal distension, nausea, vomiting, diarrhea, constipation, melena, hematochezia GENITOURINARY: Absent: dysuria, frequency, urgency, hesitancy, hematuria, flank pain, genital pain MUSCULOSKELETAL: Absent: myalgia, arthralgia, joint swelling, back pain, neck pain SKIN: Absent: rash, itching, pallor HEMATOLOGIC/IMMUNOLOGIC: Absent: easy bleeding, easy bruising, lymphadenopathy, frequent infections ENDOCRINE: Absent: unexplained weight gain, unexplained weight loss, heat intolerance, cold intolerance NEUROLOGIC: Absent: headache, focal weakness or paresthesias, dizziness, unsteady gait, seizure, mental status changes, bladder or bowel incontinence PSYCHIATRIC: Absent: anxiety, depression, suicidal or homicidal ideation, hallucinations. GENERAL: AOx3, in no acute distress. HEAD: NCAT EYES: DEBBIE, EOMI, conjunctiva clear. ENT: Ears normal, nares patent, oropharynx clear without exudates. Moist mucous membranes. NECK: Normal range of motion, supple without lymphadenopathy, JVD, or masses. LUNGS: CTAB. No wheezes, and no crackles. No accessory muscle use. HEART: RRR s1 s2 ABDOMEN: Soft, BS present in all 4 quadrants, non-distended, no JVD, MUSCULOSKELETAL: No bony deformities or tenderness. No CVA tenderness. UPPER EXTREMITIES: 2+ pulses, warm, well-perfused. No cyanosis. No clubbing. No peripheral edema. LOWER EXTREMITIES: 2+ pulses, warm, well-perfused. No calf tenderness. No peripheral edema. NEUROLOGICAL: Focal deficits on RIGHT. Dysathria. Gait not appreciated. PSYCHIATRIC: Cooperative. Good eye contact. Appropriate mood and affect. SKIN: Warm, dry, normal turgor, no rashes or lesions noted, normal capillary refill.
[2019-11-03 15:41] LABS: BASO % 0.6 % (0-2.0); EOS % 1.5 % (0-4.5); HEMATOCRIT 40.9 % (35.4-49); HEMOGLOBIN 13.2 GM/dL (11.7-16.9); LYMPH % 34.2 % (8-40); MCH 22.4 pg (25.7-33.7); MCHC 32.4 g/dl (32.0-35.9); MEAN CELL VOLUME 69.3 fl (80-96); MEAN PLT VOLUME 9.2 fl (7.5-11.1); NEUT % 52.7 % (42.8-82.8); PLATELET COUNT 241 K/MM3 (134-434); RDW 17.7 % (11.9-15.9); WHITE BLOOD COUNT 4.1 K/mm3 (4.0-10.0)
[2019-11-03 15:51] LABS: INR 1.23 (0.83-1.09); PROTHROMBIN TIME (PATIENT) 14.5 SEC (9.7-13.0)
[2019-11-03 15:54] LABS: ACTIVATED PTT 34.5 SECONDS (25.2-36.5)
--- NOTE | 2019-11-03 15:59 | PDOC ---
Documentation entered by Alexandro Petersen SCRIBE, acting as scribe for Anny Mercado MD. Anny Mercado MD: This documentation has been prepared by the Nicola crawley Nirvannie, SCRIBE, under my direction and personally reviewed by me in its entirety. I confirm that the documentation accurately reflects all work, treatment, procedures, and medical decision making performed by me. Attending Attestation - Resident Resident Name: Graham Sun - ED Attending Attestation I have performed the following: I have examined & evaluated the patient, The case was reviewed & discussed with the resident, I agree w/resident's findings & plan, Exceptions are as noted - HPI HPI: 11/03/19 15:14 [id number] with a significant past medical history of CVA/TIA (right sided weakness and dysarthria), CAD (s/p HI and PCI stenting), pAfib (on Eliquis), HTN, and HLD , CKD, dCHF, who presents to the emergency department s/p syncope. As per EMS, the patient was at the [employer] at which time he began to feel diaphoretic, nauseous, and eyes rolled back subsequently syncopizing. EMS notes the patient had one episode of NBNB emesis described as the food he was ingesting. Denies any urinary or bowel incontinence. Denies any convulsions. Denies any tongue biting. Denies fever, chills, chest pain, SOB, palpitation, dizziness, weakness, D, abdominal pain, bladder and bowel problems, leg swelling, No sick contacts or travel. No new changes in medications. Allergies: Pork chops Past Medical History: CVA/TIA (right sided weakness and dysarthria), CAD (s/p HI and PCI stenting), Afib (on Eliquis), HTN, and HLD, CKD, dCHF Social history: Lives with family. No tobacco, ETOH or drug use. Surgical history: PCI stenting. Meds: as documented in EMR 11/03/19 16:32 - Physicial Exam PE: 11/03/19 15:15 NAD, well appearing, awake and alert now. EOMI, PERRL, nl conjunctiva, anicteric ; neck supple. lungs clear, no respiratory distress. RRR, abdomen soft nontender. No rebound, no guarding. Back nontender. MORENO x4, No peripheral edema. normal color for ethnicity, WWP. 4/5 RUE and RLE weakness, gross sensation intact SILT in all extrem. baselie dysarthric, no aphasia. no nystagmus, no cerebellar signs, crosses legs b/l, gait stable, no ataxia. 11/03/19 16:33 11/04/19 09:48 - Medical Decision Making 11/03/19 16:31 Vital Signs Temp Pulse Resp BP Pulse Ox 98.2 F 70 16 128/81 100 11/03/19 13:45 11/03/19 13:45 11/03/19 13:45 11/03/19 13:45 11/03/19 13:45 DDx. syncope: considered interval abnormalities including short QTC or long QT syndrome, WPW, conduction abnormality, Brugada, ACS, PE, electrolyte disturbances, metabolic derangement. seizure, [employer] lesion, CVA, ICH. vasovagal episode. Neuro exam is nonfocal, not consistent with CVA or primary neurologic abnormality. labs and lytes, wnl, reassuring trop neg CTH with encephalomalacia, otherwise no new bleed/infarct admit for syncope, cardiogenic vs sz vs neurogenic. medical hospitalist service, tele monitor, observation. 11/03/19 16:33 11/04/19 09:49 Heart Score/ECG Review #1 ECG reviewed & interpreted by me at: 13:55 General ECG Interpretation: Sinus Rhythm, Normal Rate, Normal Intervals Compared to previous ECG there are: No significant change 11/03/19 16:30 EKG normal sinus rhythm 64 bpm, no interval abnormalities, narrow QRS, ST and T wave segments and morphology normal. Nonspecific T wave abnormalities with TWI in lateral leads, similar to prior EKG
[2019-11-03 16:09] LABS: ALBUMIN 3.7 g/dl (3.4-5.0); ALK PHOS 98 U/L (45-117); ANION GAP 7 MMOL/L (8-16); BILIRUBIN,TOTAL 0.5 mg/dL (0.2-1); BLOOD UREA NITROGEN 17.5 mg/dL (7-18); CALCIUM 9.3 mg/dL (8.5-10.1); CHLORIDE 106 mmol/L (98-107); CO2 26 mmol/L (21-32); CREATININE 1.3 mg/dL (0.55-1.3); GLUCOSE,RANDOM 81 mg/dL (74-106); POTASSIUM 4.2 mmol/L (3.5-5.1); SGOT/AST 23 U/L (15-37); SGPT/ALT 37 U/L (13-61); SODIUM 139 mmol/L (136-145); TOT PROT 6.9 g/dl (6.4-8.2)
--- NOTE | 2019-11-03 17:48 | HP ---
CHIEF COMPLAINT: passed out PCP:Dr. Benton HISTORY OF PRESENT ILLNESS: Patient is a 59 year old male with past medical history of HTN, HLD, CVA (RIGHT sided residual deficits), CAD, pAfib on Eliquis, systolic HFrEF, was BIBEMS after he had an episode of unresponsiveness today. Patient could not recall what exactly happened. He remembered sitting down and eating at a restaurant, and next thing he knew he woke up with vomit all over him. No family at bedside to aide in the history. But as per patient, he was told, he suddenly became unresponsive with "eyes rolling" and then had 1 episode of vomiting. Patient denies any trauma. He denies tongue biting or bowel/bladder incontinence. He denies any pre-syncopal symptoms. He denies any recent illness, denies fever, chills, headache, dizziness, nausea, chest pain, SOB, abdominal pain, diarrhea, urinary symptoms. Of note, patient was recently admitted for a TIA after he was found to be unresponsive. ER course was notable for: (1)Head CT: Left cerebral encephalomalacia involving the left temporal, frontal , parietal, and occiptial lobe as well as involving the left felicitas insular cortex with ex vacuodilatation of the left lateral ventricle. Low attenuation foci compatible with encephalomalacia along the posterior margin of the right and left cerebellum. No gross mass lesion or CT evidence of an acute infarct are identified. (2) (3) Recent Travel:denies PAST MEDICAL HISTORY: HTN HLD CVA (RIGHT sided residual deficits) CAD pAfib on Eliquis systolic HFrEF PAST SURGICAL HISTORY: stents x3 Social History: Smoking:denies Alcohol:denies Drugs: denies Allergies No Known Drug Allergies Allergy (Verified 11/03/19 13:55) "PORK CHOPS' Adverse Reaction (Uncoded 11/03/19 13:55) Nausea HOME MEDICATIONS: Home Medications Medication Instructions Recorded Apixaban [Eliquis] 5 mg PO BID 08/23/19 Azilsartan Medoxomil [Edarbi] 80 mg PO DAILY 10/11/19 Metoprolol Succinate [Toprol XL -] 50 mg PO DAILY 10/11/19 Aspirin Coated [Ecotrin -] 81 mg PO DAILY tablet.ec 10/15/19 Atorvastatin Ca [Lipitor] 80 mg PO HS #30 tablet 10/15/19 REVIEW OF SYSTEMS CONSTITUTIONAL: Absent: fever, chills, diaphoresis, generalized weakness, malaise, loss of appetite, weight change HEENT: Absent: rhinorrhea, nasal congestion, throat pain, throat swelling, difficulty swallowing, mouth swelling, ear pain, eye pain, visual changes CARDIOVASCULAR: Absent: chest pain, syncope, palpitations, irregular heart rate, lightheadedness , peripheral edema RESPIRATORY: Absent: cough, shortness of breath, dyspnea with exertion, orthopnea, wheezing, stridor, hemoptysis GASTROINTESTINAL: Absent: abdominal pain, abdominal distension, nausea, vomiting, diarrhea, constipation, melena, hematochezia GENITOURINARY: Absent: dysuria, frequency, urgency, hesitancy, hematuria, flank pain, genital pain MUSCULOSKELETAL: Absent: myalgia, arthralgia, joint swelling, back pain, neck pain SKIN: Absent: rash, itching, pallor HEMATOLOGIC/IMMUNOLOGIC: Absent: easy bleeding, easy bruising, lymphadenopathy, frequent infections ENDOCRINE: Absent: unexplained weight gain, unexplained weight loss, heat intolerance, cold intolerance NEUROLOGIC: Absent: headache, focal weakness or paresthesias, dizziness, unsteady gait, seizure, mental status changes, bladder or bowel incontinence PSYCHIATRIC: Absent: anxiety, depression, suicidal or homicidal ideation, hallucinations. PHYSICAL EXAMINATION Vital Signs - 24 hr 11/03/19 13:45 Temperature 98.2 F Pulse Rate 70 Respiratory 16 Rate Blood Pressure 128/81 O2 Sat by Pulse 100 Oximetry (%) GENERAL: Awake, alert, and fully oriented, in no acute distress. HEAD: Normal with no signs of trauma. EYES: PERRLA, eOMI sclera anicteric, conjunctiva clear. EARS, NOSE, THROAT: Moist mucous membranes. NECK: Normal range of motion, supple without lymphadenopathy, JVD, or masses. LUNGS: Breath sounds equal, clear to auscultation bilaterally. HEART: Regular rate and rhythm, normal S1 and S2 without murmur, rub or gallop. ABDOMEN: Soft, nontender, not distended, normoactive bowel sounds. MUSCULOSKELETAL: Normal range of motion at all joints. No CVA tenderness. LOWER EXTREMITIES: 2+ pulses, warm, well-perfused. No peripheral edema. NEUROLOGICAL: Cranial nerves II-XII intact. Normal speech. Normal gait. Motor strength 4/5 on RUE/RLE, 5/5 LUE/LLE, sensation intact. PSYCHIATRIC: Cooperative. Good eye contact. Appropriate mood and affect. SKIN: Warm, dry, normal turgor, no rashes or lesions noted, normal capillary refill. Laboratory Results - last 24 hr 11/03/19 11/03/19 11/03/19 14:30 14:30 14:30 WBC 4.1 RBC 5.90 H Hgb 13.2 Hct 40.9 MCV 69.3 L MCH 22.4 L MCHC 32.4 RDW 17.7 H Plt Count 241 MPV 9.2 Absolute Neuts (auto) 2.2 Neutrophils % 52.7 D Lymphocytes % 34.2 D Monocytes % 11.0 H Eosinophils % 1.5 Basophils % 0.6 Nucleated RBC % 0 PT with INR 14.50 H INR 1.23 H PTT (Actin FS) 34.5 Sodium 139 Potassium 4.2 Chloride 106 Carbon Dioxide 26 Anion Gap 7 L BUN 17.5 Creatinine 1.3 Est GFR (CKD-EPI)AfAm 69.71 Est GFR (CKD-EPI)NonAf 60.14 POC Glucometer Random Glucose 81 Calcium 9.3 Total Bilirubin 0.5 AST 23 ALT 37 Alkaline Phosphatase 98 Creatine Kinase 156 Creatine Kinase Index 1.7 CK-MB (CK-2) 2.8 Troponin I < 0.02 Total Protein 6.9 Albumin 3.7 11/03/19 14:40 WBC RBC Hgb Hct MCV MCH MCHC RDW Plt Count MPV Absolute Neuts (auto) Neutrophils % Lymphocytes % Monocytes % Eosinophils % Basophils % Nucleated RBC % PT with INR INR PTT (Actin FS) Sodium Potassium Chloride Carbon Dioxide Anion Gap BUN Creatinine Est GFR (CKD-EPI)AfAm Est GFR (CKD-EPI)NonAf POC Glucometer 97 Random Glucose Calcium Total Bilirubin AST ALT Alkaline Phosphatase Creatine Kinase Creatine Kinase Index CK-MB (CK-2) Troponin I Total Protein Albumin ASSESSMENT/PLAN: Patient is a 59 year old male with past medical history of HTN, HLD, CVA (RIGHT sided residual deficits), CAD, pAfib on Eliquis, systolic HFrEF, was BIBEMS after he had an episode of unresponsiveness today. #Syncope vs seizure -Head CT with no acute intracranial pathology -Echo recently done (10/11): Normal LV size with borderline HK and apical, apical septal AK, abnl LV compliance, tr-mild MR -carotid ultrasound (10/11) showed right ica moderate 50-69% stenosis -mri of brain (10/12) unremarkable for acute/subacute strokes, + old strokes -neurochecks -tele monitoring -Cardiology (Dr. Low) consulted. -Neurology (Dr. Vasquez) consulted. -continue home medications #HTN -Continue Edarbi 80mg daily -Toprol XL 50mg daily #HLD -continue lipitor 80mg HS #CVA -Continue ASA, Lipitor #Afib -continue eliquis 5mg bid -rate controlled, continue Toprol 50mg daily #FEn -Not on any standing fluids -Electrolytes wnl, routine bmp monitoring -Sodium restricted diet #Prophylaxis -on Eliquis 5mg bid #Disposition -full code -tele obs Visit type - Emergency Visit Emergency Visit: Yes ED Registration Date: 11/03/19 Care time: The patient presented to the Emergency Department on the above date and was hospitalized for further evaluation of their emergent condition. - New Patient This patient is new to me today: Yes Date on this admission: 11/03/19 - Critical Care Critical Care patient: No ATTENDING PHYSICIAN STATEMENT I saw and evaluated the patient. I reviewed the resident's note and discussed the case with the resident. I agree with the resident's findings and plan as documented. SUBJECTIVE: OBJECTIVE: ASSESSMENT AND PLAN:
--- NOTE | 2019-11-03 17:59 | CON.CARD ---
Consult Consult Specialty:: Cardiology Referred by:: Hospitalist Medicine Reason for Consultation:: Recurrent syncope - History of Present Illness Chief Complaint: Syncope History of Present Illness: 59 yo M with h/o HTN, HLD, CAD s/p AWMI, s/p Synergy 3.5x32 MORRIS mLAD 05/30/2016 , LV systolic dysfunction, CVA (04/06 with residual R sided weakness, visual deficits and expressive aphasia), orthostatic hypotension, CKD, PAF->SR on ILR placed on Eliquis last seen in office 09/26/2019, recent hospitalization for recurrent TIA with possible Eliquis noncompliance referred to ED with prodromal symptoms of diaphoresis, nausea, emesis, followed by true syncope. He denies any urinary or bowel incontinence. Denies any convulsions. Denies any tongue biting. Denies fever, chills, chest pain, SOB, palpitation, dizziness, weakness , abdominal pain, bladder and bowel problems, leg swelling, No sick contacts or travel. No new changes in medications. Allergies: Pork chops Past Medical History: CVA/TIA (right sided weakness and dysarthria), CAD (s/p DE and PCI stenting), Afib (on Eliquis), HTN, and HLD, CKD, dCHF Social history: Lives with family. No tobacco, ETOH or drug use. Surgical history: PCI stenting. 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 Cardio/Vascular: Yes: AFIB Renal/: Yes: Renal Failure - Past Surgical History Past Surgical History: Yes: Stent - Alcohol/Substance Use Hx Alcohol Use: No - Smoking History Smoking history: Unknown if ever smoked Have you smoked in the past 12 months: Yes Aproximately how many cigarettes per day: 4 If you are a former smoker, when did you quit?: 2 years ago Home Medications - Allergies Allergies/Adverse Reactions: Allergies Allergy/AdvReac Type Severity Reaction Status Date / Time No Known Drug Allergies Allergy Verified 11/03/19 13:55 "PORK CHOPS' AdvReac Nausea Uncoded 11/03/19 13:55 - Home Medications Home Medications: Ambulatory Orders Apixaban [Eliquis] 5 mg PO BID 08/23/19 Azilsartan Medoxomil [Edarbi] 80 mg PO DAILY 10/11/19 Metoprolol Succinate [Toprol XL -] 50 mg PO DAILY 10/11/19 Aspirin Coated [Ecotrin -] 81 mg PO DAILY tablet.ec 10/15/19 Atorvastatin Ca [Lipitor] 80 mg PO HS #30 tablet 10/15/19 Review of Systems - Review of Systems Constitutional: reports: Diaphoresis Gastrointestinal: reports: Nausea, Vomiting Vital Signs: Vital Signs Temperature 98.2 F 11/03/19 13:45 Pulse Rate 70 11/03/19 13:45 Respiratory Rate 16 11/03/19 13:45 Blood Pressure 128/81 11/03/19 13:45 O2 Sat by Pulse Oximetry (%) 100 11/03/19 13:45 Constitutional: Yes: No Distress, Calm Neck: Yes: Supple Respiratory: Yes: Regular, CTA Bilaterally Gastrointestinal: Yes: Normal Bowel Sounds, Soft Cardiovascular: Yes: Regular Rate and Rhythm JVD: No Carotid Bruit: No Heart Sounds: Yes: S1, S2 Murmur: Yes: Systolic Murmur, Grade 1 Edema: No Neurological: Yes: Dysarthria, Pre-Existing Deficit - Other Data Labs, Other Data: CBC, BMP 11/03/19 14:30 11/03/19 14:30 INR, PTT INR 1.23 (0.83-1.09) H 11/03/19 14:30 Troponin, BNP 11/03/19 14:30 Troponin I < 0.02 Troponin, BNP 11/03/19 14:30 Troponin I < 0.02 NSR LAE, LVH lateral T wave changes Prior Cardiac Procedures: PTCA with Stent Ejection Fraction %: LVEF > or = 40 % Imaging - Results Chest X-ray: Report Reviewed (NAD) Cat Scan: Report Reviewed (HCT: Old stroke) Problem List - Problems (1) Chronic anticoagulation Code(s): Z79.01 - [facility] (CURRENT) USE OF ANTICOAGULANTS (2) Diastolic dysfunction without heart failure Code(s): I51.89 - OTHER ILL-DEFINED HEART DISEASES (3) Hypertension Code(s): I10 - ESSENTIAL (PRIMARY) HYPERTENSION Qualifiers: Hypertension type: essential hypertension Qualified Code(s): I10 - Essential (primary) hypertension (4) Paroxysmal atrial fibrillation Code(s): I48.0 - PAROXYSMAL ATRIAL FIBRILLATION (5) S/P coronary artery stent placement Code(s): Z95.5 - PRESENCE OF CORONARY ANGIOPLASTY IMPLANT AND GRAFT (6) Aphasia as late effect of cerebrovascular accident Code(s): I69.320 - APHASIA FOLLOWING CEREBRAL INFARCTION (7) Coronary artery disease Code(s): I25.10 - ATHSCL HEART DISEASE OF [place] CORONARY ARTERY W/O ANG PCTRS Qualifiers: Coronary Disease-Associated Artery/Lesion type: [place] artery [place] vs. transplanted heart: [place] heart Associated angina: without angina Qualified Code(s): I25.10 - Atherosclerotic heart disease of [place] coronary artery without angina pectoris (8) Hyperlipidemia Code(s): E78.5 - HYPERLIPIDEMIA, UNSPECIFIED Qualifiers: Hyperlipidemia type: pure hypercholesterolemia Qualified Code(s): E78.00 - Pure hypercholesterolemia, unspecified; E78.0 - Pure hypercholesterolemia (9) Old anterior myocardial infarction Code(s): I25.2 - OLD MYOCARDIAL INFARCTION (10) Systolic dysfunction without heart failure Code(s): I51.89 - OTHER ILL-DEFINED HEART DISEASES (11) Syncope and collapse Code(s): R55 - SYNCOPE AND COLLAPSE Assessment/Plan 10/11/2019 Echo: Normal LV size with borderline HK and apical, apical septal AK , abnl LV compliance, tr-mild MR 11/29/2018 Echo: Moderate decreased LVEF 40% with anterior, anteroseptal and apical HK, normal RV fxn, mild TR, tr CT ct head showed bihemispheric stroke right occpital and left mca carotid ultrasound showed right ica moderate 50-69% stenosis mri of brain unremarkable for acute/subacute strokes, + old strokes 1. Recurrent syncope with typical prodromal sxs and h/o orthostatic syncope r/o significant bradyarrhythmia 2. Recurrent TIA 3. Paroxysmal atrial fibrillation/flutter->SR on ILR [id number] on Eliquis, possible noncompliance 4. Acute on CKD (pre-renal) improving to baseline 5. Previous stroke with residual R sided sensory loss, visual deficits and expressive aphasia 6. Moderate 40-50% BARB stenosis 7. CAD s/p AWMI PCI LAD, angina pectoris 8. HTN 9. Hyperlipidemia 10. LV diastolic dysfunction with improved LVEF 11. Bilateral hydrocele repair P:1. Continue Toprol XL 50 qd, Eliquis 5 bid, ASA 81 qd, Lipitor 80 qd, Erdarbi 80 qd equivalent as hemodynamics tolerate 2. Check orthostastic VS, interrogate ILR (contact [employer] rep) for significant pause or AV block, patient is scheduled for Lexiscan myoview as outpatient given recent h/o demand ischemia 4. Thank you for consultative opportunity, eventually f/u with me in office
--- NOTE | 2019-11-03 18:31 | PN ---
Teaching Attending Note Name of Resident: Kianna Jordan ATTENDING PHYSICIAN STATEMENT I saw and evaluated the patient. I reviewed the resident's note and discussed the case with the resident. I agree with the resident's findings and plan as documented. SUBJECTIVE: This is a 59 year old man with a history of HTN, hyperlipidemia, CAD, PAF, chronic systolic heart failure, CVA who was brought in to the ED after he became unresponsiveness and vomited while eating at a restaurant. His eyes rolled back but there was no seizure-like activity, tongue biting, or incontinence. OBJECTIVE: Vital Signs Period Temp Pulse Resp BP Sys/Fox Pulse Ox Last 24 Hr 98.2 F 70 16 128/81 100 HEART: S1S2, RRR LUNGS: Clear ABDOMEN: Obese, soft, non-tender, non-distended, normal BS EXTREMITIES: No edema NEUROLOGICAL: Alert, oriented, non-focal Laboratory Tests 11/03/19 11/03/19 11/03/19 14:30 14:30 14:30 WBC 4.1 RBC 5.90 H Hgb 13.2 Hct 40.9 MCV 69.3 L MCH 22.4 L MCHC 32.4 RDW 17.7 H Plt Count 241 MPV 9.2 Absolute Neuts (auto) 2.2 Neutrophils % 52.7 D Lymphocytes % 34.2 D Monocytes % 11.0 H Eosinophils % 1.5 Basophils % 0.6 Nucleated RBC % 0 PT with INR 14.50 H INR 1.23 H PTT (Actin FS) 34.5 Sodium 139 Potassium 4.2 Chloride 106 Carbon Dioxide 26 Anion Gap 7 L BUN 17.5 Creatinine 1.3 Est GFR (CKD-EPI)AfAm 69.71 Est GFR (CKD-EPI)NonAf 60.14 POC Glucometer Random Glucose 81 Calcium 9.3 Total Bilirubin 0.5 AST 23 ALT 37 Alkaline Phosphatase 98 Creatine Kinase 156 Creatine Kinase Index 1.7 CK-MB (CK-2) 2.8 Troponin I < 0.02 Total Protein 6.9 Albumin 3.7 11/03/19 14:40 WBC RBC Hgb Hct MCV MCH MCHC RDW Plt Count MPV Absolute Neuts (auto) Neutrophils % Lymphocytes % Monocytes % Eosinophils % Basophils % Nucleated RBC % PT with INR INR PTT (Actin FS) Sodium Potassium Chloride Carbon Dioxide Anion Gap BUN Creatinine Est GFR (CKD-EPI)AfAm Est GFR (CKD-EPI)NonAf POC Glucometer 97 Random Glucose Calcium Total Bilirubin AST ALT Alkaline Phosphatase Creatine Kinase Creatine Kinase Index CK-MB (CK-2) Troponin I Total Protein Albumin Home Medications Medication Instructions Recorded Apixaban [Eliquis] 5 mg PO BID 08/23/19 Azilsartan Medoxomil [Edarbi] 80 mg PO DAILY 10/11/19 Metoprolol Succinate [Toprol XL -] 50 mg PO DAILY 10/11/19 Aspirin Coated [Ecotrin -] 81 mg PO DAILY tablet.ec 10/15/19 Atorvastatin Ca [Lipitor] 80 mg PO HS #30 tablet 10/15/19 ASSESSMENT AND PLAN: This is a 59 year old man with a history of HTN, hyperlipidemia, CAD, PAF, chronic systolic heart failure, CVA who presented to the ED after becoming unresponsive and vomiting while eating. 1. Syncope, recurrent - Doubt seizure - Head CT unremarkable - Monitor on telemetry - Serial troponins - Check orthostatic vitals 2. HTN - Continue Edarbi, Toprol XL 3. Hyperlipidemia - Continue Lipitor 4. CAD, history of stent - Continue aspirin, Toprol XL, Lipitor 5. Paroxysmal atrial fib - Currently in sinus rhythm - Continue Toprol XL, Eliquis 6. Chronic systolic heart failure - Stable - Continue Edarbi 7. History of CVA - Continue aspirin, Lipitor
--- NOTE | 2019-11-03 19:36 | EKG ---
Test Reason : Blood Pressure : / mmHG Vent. Rate : 064 BPM Atrial Rate : 064 BPM P-R Int : 200 ms QRS Dur : 110 ms QT Int : 440 ms P-R-T Axes : 048 038 098 degrees QTc Int : 453 ms SINUS RHYTHM WITH OCCASIONAL PREMATURE VENTRICULAR COMPLEXES POSSIBLE LEFT ATRIAL ENLARGEMENT LEFT VENTRICULAR HYPERTROPHY WITH REPOLARIZATION ABNORMALITY ANTERIOR INFARCT (CITED ON OR BEFORE 11-MAR-2012) ABNORMAL ECG WHEN COMPARED WITH ECG OF 11-OCT-2019 19:06, PREMATURE VENTRICULAR COMPLEXES ARE NOW PRESENT T WAVE INVERSION MORE EVIDENT IN LATERAL LEADS Confirmed by MALINDA SIDDIQUI MD ([id number]) on 11/03/2019 7:36:25 PM Referred By: Confirmed By:MALINDA SIDDIQUI MD
[2019-11-03] MEDS ORDERED: ATORVASTATIN CA 80 MG TABLET (FP) PO SCH (22:00)
[2019-11-03] MEDS ORDERED: ATORVASTATIN CA 80 MG TABLET (FP) ONE (22:17)
[2019-11-03] MEDS ORDERED: APIXABAN 5 MG TABLET ONE (22:17)
[2019-11-03] MEDS: APIXABAN 5 MG TABLET PO SCH (22:20)
[2019-11-04 05:15] VITALS: BP 132/89; PULSE 59
[2019-11-04 07:14] LABS: BASO % 1.1 % (0-2.0); HEMATOCRIT 39.2 % (35.4-49); HEMOGLOBIN 12.9 GM/dL (11.7-16.9); MCH 22.5 pg (25.7-33.7); MCHC 32.8 g/dl (32.0-35.9); MEAN CELL VOLUME 68.6 fl (80-96); MEAN PLT VOLUME 8.3 fl (7.5-11.1); NEUT % 39.9 % (42.8-82.8); PLATELET COUNT 232 K/MM3 (134-434); RBC 5.71 M/mm3 (4.00-5.60); RDW 17.6 % (11.9-15.9); WHITE BLOOD COUNT 4.3 K/mm3 (4.0-10.0)
[2019-11-04 08:16] LABS: ALBUMIN 3.7 g/dl (3.4-5.0); BILIRUBIN,TOTAL 0.9 mg/dL (0.2-1); BLOOD UREA NITROGEN 14.1 mg/dL (7-18); CALCIUM 9.3 mg/dL (8.5-10.1); CREATININE 1.2 mg/dL (0.55-1.3); MAGNESIUM 2.1 mg/dL (1.8-2.4); PHOSPHOROUS 3.4 mg/dL (2.5-4.9); POTASSIUM 4.1 mmol/L (3.5-5.1); TOT PROT 6.9 g/dl (6.4-8.2)
[2019-11-04] MEDS: APIXABAN 5 MG TABLET PO SCH (09:38)
[2019-11-04] MEDS ORDERED: METOPROLOL TARTRATE 50 MG TABLET (FP) PO SCH (10:00)
[2019-11-04] MEDS ORDERED: ASPIRIN COATED 81 MG TABLET.EC PO SCH (10:00)
[2019-11-04] MEDS ORDERED: PATIENT'S OWN MEDICATION (NON-FORMULARY) (Azilsartan Medoxomil [Edarbi] 80 MG) PO SCH (10:00)
--- NOTE | 2019-11-04 15:54 | PN ---
Progress Note (short form) - Note Progress Note: Chief Complaint: Events noted, notes reviewed, patient denies any recurrent dizziness, lightheadedness, no recurrent near syncope or syncope, denies any chest discomfort or dyspnea, requesting to be discharged home History of Present Illness: Seen and examined on telemetry. Events noted, notes reviewed, patient denies any recurrent dizziness, lightheadedness, no recurrent near syncope or syncope, denies any chest discomfort or dyspnea, requesting to be discharged home Last ILR transmission dated October 08, 2019, no evidence of paroxysmal atrial fibrillation or bradyarrhythmia Medications: Current Medications Apixaban (Eliquis -) 5 mg PO BID [facility] Last Admin: 11/04/19 09:38 Dose: 5 mg Aspirin (Ecotrin -) 81 mg PO DAILY [facility] Last Admin: 11/04/19 09:38 Dose: 81 mg Atorvastatin Calcium (Lipitor -) 80 mg PO HS [facility] Last Admin: 11/03/19 22:20 Dose: 80 mg Metoprolol Tartrate (Lopressor -) 50 mg PO DAILY [facility] Last Admin: 11/04/19 09:38 Dose: 50 mg Non-Formulary Medication (Azilsartan Medoxomil [Edarbi]) 80 mg PO DAILY [facility] Review of Systems - Review of Systems Constitutional: denies: Chills, Fever Cardiovascular: As noted above Respiratory: denies: Cough or Sputum Production Gastrointestinal: denies: Nausea, Vomiting, Diarrhea, Constipation or Abdominal Pain Neurological: denies: Headaches Vital Signs: Last Vital Signs Temp Pulse Resp BP Pulse Ox 98.2 F 59 L 16 132/89 100 11/03/19 13:45 11/04/19 05:00 11/04/19 05:00 11/04/19 05:00 11/04/19 05:00 Intake & Output 11/01/19 11/02/19 11/03/19 11/04/19 23:59 23:59 23:59 23:59 Weight 281 lb Neck: Supple Negative JVD No Bruit Respiratory: Diminished breath sounds at the bases bilaterally Cardiovascular: S1 S2 Regular Rate Rhythm Gastrointestinal: Soft Benign Normal Bowel Sounds Ext: Negative Edema Labs: Troponin, BNP 11/03/19 14:30 Troponin I < 0.02 CBC, BMP 11/04/19 06:48 11/04/19 06:48 Hepatic Panel Total Bilirubin 0.9 mg/dL (0.2-1) 11/04/19 06:48 AST 20 U/L (15-37) 11/04/19 06:48 ALT 35 U/L (13-61) 11/04/19 06:48 Alkaline Phosphatase 86 U/L (45-117) 11/04/19 06:48 Albumin 3.7 g/dl (3.4-5.0) 11/04/19 06:48 INR, PTT INR 1.23 (0.83-1.09) H 11/03/19 14:30 Assessment/Plan ASSESSMENT: 1. Recurrent syncopal episode with typical prodromal symptoms, history of orthostatic hypotension with orthostatic syncope, thus far no bradyarrhythmia documented/last ILR transmission dated October 08, 2019 2. CAD post AWMI post PCI/stent angina pectoris 3. Diastolic left ventricular dysfunction with clinical class 0 [place] [employer] classification left ventricular failure 4. Paroxysmal atrial fibrillation/paroxysmal atrial flutter currently in sinus rhythm [id number] score of 3 on Eliquis/Ecotrin, possible noncompliance with therapy administration 5. History of CVA/stroke, with residual deficit 6. History of recurrent TIA 7. Hypertension 8. Hypercholesterolemia 9. Carotid stenosis moderate in severity 10. Acute on CKD PLAN: 1. Continue Toprol XL 2. Continue Edarbi 3. Continue Eliquis and Ecotrin therapies 4. Continue Lipitor 5. Since there is no evidence of orthostatic hypotension would recommend ILR interrogation/[employer]'s device- Reveal-LIN[employer] (house staff to contact [employer] customer sales representative salesforce consultant- discussed with the admitting team) and if no arrhythmia (tachy or stanley arrhythmia) is noted patient can be discharged home for additional evaluation on outpatient basis Damion Ngo M.D.
--- NOTE | 2019-11-04 17:25 | PN ---
Teaching Attending Note Name of Resident: Kianna Jordan ATTENDING PHYSICIAN STATEMENT I saw and evaluated the patient. I reviewed the resident's note and discussed the case with the resident. I agree with the resident's findings and plan as documented. SUBJECTIVE: No complaints. OBJECTIVE: Vital Signs Period Temp Pulse Resp BP Sys/Fox Pulse Ox Last 24 Hr 59-66 16-18 132-164/89-100 96-100 HEART: S1S2, RRR LUNGS: Clear ABDOMEN: Obese, soft, non-tender, non-distended, normal BS EXTREMITIES: No edema Laboratory Results - last 24 hr 11/04/19 11/04/19 11/04/19 06:48 06:48 06:48 WBC 4.3 RBC 5.71 H Hgb 12.9 Hct 39.2 MCV 68.6 L MCH 22.5 L MCHC 32.8 RDW 17.6 H Plt Count 232 MPV 8.3 Absolute Neuts (auto) 1.7 Neutrophils % 39.9 L D Lymphocytes % 46.0 H D Monocytes % 11.0 H Eosinophils % 2.0 Basophils % 1.1 Nucleated RBC % 0 ESR 7 Sodium 139 Potassium 4.1 Chloride 106 Carbon Dioxide 27 Anion Gap 6 L BUN 14.1 Creatinine 1.2 Est GFR (CKD-EPI)AfAm 76.79 Est GFR (CKD-EPI)NonAf 66.26 Random Glucose 88 Calcium 9.3 Phosphorus 3.4 Magnesium 2.1 Total Bilirubin 0.9 AST 20 ALT 35 Alkaline Phosphatase 86 Total Protein 6.9 Albumin 3.7 Vitamin B12 354 TSH 1.02 D Current Medications Generic Name Dose Route Start Last Admin Trade Name Jeffq PRN Reason Stop Dose Admin Apixaban 5 mg 11/03/19 22:00 11/04/19 09:38 Eliquis - PO 5 mg BID [facility] Administration Aspirin 81 mg 11/04/19 10:00 11/04/19 09:38 Ecotrin - PO 81 mg DAILY [facility] Administration Atorvastatin Calcium 80 mg 11/03/19 22:00 11/03/19 22:20 Lipitor - PO 80 mg HS [facility] Administration Metoprolol Tartrate 50 mg 11/04/19 10:00 11/04/19 09:38 Lopressor - PO 50 mg DAILY [facility] Administration Non-Formulary Medication 80 mg 11/04/19 10:00 Azilsartan Medoxomil [Edarbi] PO DAILY [facility] ASSESSMENT AND PLAN: This is a 59 year old man with a history of HTN, hyperlipidemia, CAD, PAF, chronic systolic heart failure, CVA who presented to the ED after becoming unresponsive and vomiting while eating. 1. Syncope, recurrent - Doubt seizure - Head CT unremarkable - No evidence of arrhythmia on interrogation of loop recorder - No evidence of orthostasis 2. HTN - Continue Edarbi, Toprol XL 3. Hyperlipidemia - Continue Lipitor 4. CAD, history of stent - Continue aspirin, Toprol XL, Lipitor 5. Paroxysmal atrial fib - Currently in sinus rhythm - Continue Toprol XL, Eliquis 6. Chronic systolic heart failure - Stable - Continue Edarbi 7. History of CVA - Continue aspirin, Lipitor 8. Disposition - Ok for discharge home
--- NOTE | 2019-11-04 19:59 | DS ---
Physical Exam: SUBJECTIVE: Patient seen and examined at bedside this morning. No acute events overnight. Patient reports feeling well and he states that he wants to go home. Denies fevers, chills, headache, dizziness, chest pain, SOB, abdominal pain, diarrhea, urinary symptoms. OBJECTIVE: Vital Signs Temperature 98.2 F 11/03/19 13:45 Pulse Rate 59 L 11/04/19 05:00 Respiratory Rate 16 11/04/19 05:00 Blood Pressure 132/89 11/04/19 05:00 O2 Sat by Pulse Oximetry (%) 100 11/04/19 05:00 PHYSICAL EXAM GENERAL: Awake, alert, and fully oriented, in no acute distress. HEAD: Normal with no signs of trauma. EYES: PERRLA, eOMI sclera anicteric, conjunctiva clear. EARS, NOSE, THROAT: Moist mucous membranes. NECK: Normal range of motion, supple without lymphadenopathy, JVD, or masses. LUNGS: Breath sounds equal, clear to auscultation bilaterally. HEART: Regular rate and rhythm, normal S1 and S2 without murmur, rub or gallop. ABDOMEN: Soft, nontender, not distended, normoactive bowel sounds. MUSCULOSKELETAL: Normal range of motion at all joints. No CVA tenderness. LOWER EXTREMITIES: 2+ pulses, warm, well-perfused. No peripheral edema. NEUROLOGICAL: Cranial nerves II-XII intact. Normal speech. Normal gait. Motor strength 4/5 on RUE/RLE, 5/5 LUE/LLE, sensation intact. PSYCHIATRIC: Cooperative. Good eye contact. Appropriate mood and affect. SKIN: Warm, dry, normal turgor, no rashes or lesions noted, normal capillary refill. LABS Laboratory Results - last 24 hr 11/04/19 11/04/19 11/04/19 06:48 06:48 06:48 WBC 4.3 RBC 5.71 H Hgb 12.9 Hct 39.2 MCV 68.6 L MCH 22.5 L MCHC 32.8 RDW 17.6 H Plt Count 232 MPV 8.3 Absolute Neuts (auto) 1.7 Neutrophils % 39.9 L D Lymphocytes % 46.0 H D Monocytes % 11.0 H Eosinophils % 2.0 Basophils % 1.1 Nucleated RBC % 0 ESR 7 Sodium 139 Potassium 4.1 Chloride 106 Carbon Dioxide 27 Anion Gap 6 L BUN 14.1 Creatinine 1.2 Est GFR (CKD-EPI)AfAm 76.79 Est GFR (CKD-EPI)NonAf 66.26 Random Glucose 88 Calcium 9.3 Phosphorus 3.4 Magnesium 2.1 Total Bilirubin 0.9 AST 20 ALT 35 Alkaline Phosphatase 86 Total Protein 6.9 Albumin 3.7 Vitamin B12 354 TSH 1.02 D HOSPITAL COURSE: Date of Admission:11/03/19 Date of Discharge: 11/04/19 Patient is a 59 year old male with past medical history of HTN, HLD, CVA (RIGHT sided residual deficits), CAD, pAfib on Eliquis, systolic HFrEF, was BIBEMS after he had an episode of unresponsiveness. Head CT was unremarkable. Echo, carotid US and brain MRI were done less than a month ago from previous admission. Cardiology was consulted. [place] [employer] came to interrogate ILR, and reported no events. Patient was discharged with instructions to follow up with PCP and cardiology. Minutes to complete discharge: 35 Discharge Summary Problems reviewed: Yes Reason For Visit: SYNCOPE Current Active Problems Syncope (Acute) Condition: Stable - Instructions Diet, Activity, Other Instructions: Your visit You were admitted to the hospital because you passed out. You were monitored overnight. Several tests and Head CAT scan was done and were unremarkable. Your Implantable loop recorder was interrogated. You were also evaluated by the temporary help agency referral clerk. You are stable for discharge home with instructions to follow up with your temporary help agency referral clerk. You are scheduled for Lexiscan myoview as outpatient. Medications Please continue your medications as prescribed. Follow up Please follow up with your primary care doctor (Dr. Benton) within 1 week. Please follow up with your temporary help agency referral clerk (Dr. Low) within 1 week. Please call the office at to schedule an appointment. Additional info Please call [phone] or go to the ED if with any worsening fever, chills, headache, dizziness, loss of consciousness, chest pain, shortness of breath, abdominal pain, or any new concerns noted. Referrals: Maral Benton MD [Primary Care Provider] - Tashi Low MD [Staff Physician] - Disposition: HOME - Home Medications Comprehensive Discharge Medication List: Ambulatory Orders Apixaban [Eliquis] 5 mg PO BID 08/23/19 Azilsartan Medoxomil [Edarbi] 80 mg PO DAILY 10/11/19 Metoprolol Succinate [Toprol XL -] 50 mg PO DAILY 10/11/19 Aspirin Coated [Ecotrin -] 81 mg PO DAILY tablet.ec 10/15/19 Atorvastatin Ca [Lipitor] 80 mg PO HS #30 tablet 10/15/19 This patient is new to me today: Yes Date on this admission: 11/04/19 Emergency Visit: Yes ED Registration Date: 11/03/19 Care time: The patient presented to the Emergency Department on the above date and was hospitalized for further evaluation of their emergent condition. Critical Care patient: No - Discharge Referral Referred to [facility] No ATTENDING PHYSICIAN STATEMENT I saw and evaluated the patient. I reviewed the resident's note and discussed the case with the resident. I agree with the resident's findings and plan as documented. SUBJECTIVE: OBJECTIVE: ASSESSMENT AND PLAN:
[2019-11-05] MEDS ORDERED: LOSARTAN POTASSIUM 50 MG TABLET (FP) PO SCH (10:00)
== END 2019-11-04 15:21 | disposition home or self-care (01) ==
LOC: JER 13:41 → SUPCPDRO 13:41 → JERBED 17:49
PROVIDERS: ADMIT Internal Medicine; ATTEND Internal Medicine
DX: R55 Syncope and collapse (principal); I10 Essential (primary) hypertension; I48.0 Paroxysmal atrial fibrillation; I25.10 Atherosclerotic heart disease of native coronary artery without angina pectoris; I48.91 Unspecified atrial fibrillation; I69.320 Aphasia following cerebral infarction; I51.89 Other ill-defined heart diseases; I69.351 Hemiplegia and hemiparesis following cerebral infarction affecting right dominant side; I25.2 Old myocardial infarction; N18.9 Chronic kidney disease, unspecified; E78.5 Hyperlipidemia, unspecified; Z95.5 Presence of coronary angioplasty implant and graft; Z79.01 Long term (current) use of anticoagulants; Z79.82 Long term (current) use of aspirin
CPT/HCPCS: 36415; 70450-TC; 71045-TC-FY; 80053; 82550; 82553; 82607; 82962; 83735; 84100; 84443; 84484; 85025; 85610; 85651; 85730; 93005; 93010; 99285-25; G0378

== ENCOUNTER 2020-05-15 08:12 | Emergency (ER) | payer BC ==
[2020-05-15 08:21] VITALS: BMI 26.6
--- NOTE | 2020-05-15 08:51 | PDOC ---
Documentation entered by Daisy Grant SCRIBE, acting as scribe for Anny Mercado MD. Anny Mercado MD: This documentation has been prepared by the Juanita crawley Brenda, SCRIBE, under my direction and personally reviewed by me in its entirety. I confirm that the documentation accurately reflects all work, treatment, procedures, and medical decision making performed by me. History of Present Illness - General Chief Complaint: Rectal Bleed Stated Complaint: RECTAL BLEED Time Seen by Provider: 05/15/20 08:29 History Source: Patient Exam Limitations: No Limitations - History of Present Illness Initial Comments: 05/15/20 08:30 60 YOM with a significant past medical history of CVA/TIA (right sided weakness and dysarthria), CAD (s/p AR and PCI stenting), pAfib (on Eliquis), HTN, and HLD, CKD, dCHF who presents to the emergency department from home for evaluation of rectal bleeding this morning. Per patient he had 2 bowel movement attempts this morning, the first one he notes he only passed a small pebble with significant bleeding on the toilet paper and the second attempt with no stool and lesser bleeding on the toilet paper. Patient endorses constipation, noting that his last bowel movement was April 24 and . has been taking miralax daily for his constipation. Denies BM to have been painful and denies straining. He is also endorsing recent low PO intake. The patient denies previous rectal bleeding or hemorrhoids. Denies previous colonsocopy.Denies extremity numbness or tingling. Denies fever, chills, chest pain, SOB, palpitation, dizziness, weakness, N, V, D, abdominal pain, bladder and bowel problems, leg swelling, No new changes in medications. no colonoscopy done previously. he is not compliant with high fiber diet per . Allergies: NKDA Past Medical History: CVA/TIA (right sided weakness and dysarthria), CAD (s/p AR and PCI stenting), pAfib (on Eliquis), HTN, and HLD, CKD, dCHF Social history: Lives with family. No tobacco, ETOH or drug use. Surgical history: Stents Meds: as documented in EMR (Hali Doan) - [phone] 05/15/20 08:50 05/15/20 12:15 05/15/20 12:42 05/15/20 12:45 05/15/20 12:50 Past History - Medical History Allergies/Adverse Reactions: Allergies Allergy/AdvReac Type Severity Reaction Status Date / Time No Known Drug Allergies Allergy Verified 05/15/20 08:21 "PORK CHOPS' AdvReac Nausea Uncoded 05/15/20 08:21 Home Medications: Ambulatory Orders Apixaban [Eliquis] 5 mg PO BID 08/23/19 Azilsartan Medoxomil [Edarbi] 80 mg PO DAILY 10/11/19 Metoprolol Succinate [Toprol XL -] 50 mg PO DAILY 10/11/19 Aspirin Coated [Ecotrin -] 81 mg PO DAILY tablet.ec 10/15/19 Atorvastatin Ca [Lipitor] 80 mg PO HS #30 tablet 10/15/19 Sennosides/Docusate Sodium [Senna-Docusate Sodium Tablet] 1 each PO DAILY #10 tablet 05/15/20 Anemia: No Asthma: No Cancer: No Cardiac Disorders: Yes (CAD W/ STENTS,afib) CVA: Yes (03/2018, residual right sided weakness) COPD: No CHF: No Dementia: No Diabetes: No GI Disorders: No Disorders: No HTN: Yes Hypercholesterolemia: Yes Liver Disease: No Seizures: No Thyroid Disease: No - Surgical History Cardiac Surgery: Yes (STENTS x3) - Immunization History Immunization Up to Date: Yes - Psycho-Social/Smoking History Smoking Status: Yes Smoking History: Never smoked Have you smoked in the past 12 months: Yes Number of Cigarettes Smoked Daily: 4 If you are a former smoker, when did you quit?: 2 years ago 'Breaking Loose' booklet given: 08/23/19 - Substance Abuse Hx (Audit-C & DAST Scrn) How often the patient has a drink containing alcohol: Never Score: In Men: 4 or > Positive; In Women: 3 or > Positive: 0 Screen Result (Pos requires Nsg. Audit-10AR): Negative Review of Systems - Review of Systems Able to Perform ROS?: Yes Comments:: 05/15/20 08:44 Constitutional: no fevers or chills. HEENT: no headache or dizziness. No congestion. No visual/hearing disturbances. CVS: no cp or syncope. Resp: no sob. No cough. Gastrointestinal: (+) Rectal bleeding (+) Constipation. no abdominal pain, nausea or vomiting. Genitourinary: no urinary sx, hematuria. MUSCULOSKELETAL: No joint pain and swelling. No neck or back pain. SKIN: no redness or skin changes, no discharge, no rash. No wounds. Hematologic: no easy bruising/bleeding. NEUROLOGIC: No headache, dizziness, LOC or altered mental status. No weakness, numbness or tingling. Psych: no anxiety or depression Allergic/Immunologic: no allergies All other systems reviewed and negative, or as documented in HPI. *Physical Exam - Vital Signs Last Vital Signs Temp Pulse Resp BP Pulse Ox 97 F L 73 18 155/103 H 99 05/15/20 08:19 05/15/20 08:19 05/15/20 08:19 05/15/20 08:19 05/15/20 08:19 - Physical Exam 05/15/20 08:46 General: Well appearing, awake and alert, NAD. Resp: CTAB, normal and even respirations, no respiratory distress CVS: RRR, no murmurs, 2+ peripheral pulses throughout, no peripheral edema Abdomen: soft, NTND, no rebound or guarding. No CVAT. Back: nontender, normal inspection and ROM] MSK: no edema, MORENO x4, ROM intact. No clubbing or cyanosis. normal bulk and tone. Extremities: no calf tenderness Rectal: (+) Enlarged prostate. NO stool in vault, no blood, no tenderness. Neuro: (+) Chronic residual right sided weakness. (+) dysarthric. alert, oriented appropriately; Skin: warm and well perfused, cap refill <2 sec, normal color Heart Score/ECG Review #1 ECG reviewed & interpreted by me at: 08:55 General ECG Interpretation: Sinus Rhythm, Normal Rate, Normal Intervals Compared to previous ECG there are: No significant change 05/15/20 09:03 EKG normal sinus rhythm 72 beats per min, no interval abnormalities, narrow QRS, ST and T wave segments and morphology normal. Nonspecific T wave abnormalities ED Treatment Course - LABORATORY CBC & Chemistry Diagram: 05/15/20 09:00 05/15/20 08:41 Medical Decision Making - Medical Decision Making 05/15/20 09:04 Vital Signs Temp Pulse Resp BP Pulse Ox 97 F L 73 18 155/103 H 99 05/15/20 08:19 05/15/20 08:19 05/15/20 08:19 05/15/20 08:19 05/15/20 08:19 05/15/20 10:11 vitals reviewed mildly hypertensive, otherwise unremarkable DDX GIB: UGIB vs LGIB, diverticular bleed, AVM, polyp, brisk UGIB, PUD/duodenal ulcer, anemia, electrolyte/metabolic derangements, ischemic colitis, hemorrhagic colitis, constipation, perf viscus, ileus, obstruction. - no active GIB here rectal exam unremarkable Abdomen soft and nontender, however constipation x 3 weeks, no fecal impaction on rectal exam labs and lytes wnl, reassuring. no anemia. mild elevated Cr, will hydrate, but does not meet criteria to call ADIA. able to urinate guaiac is negative for occult blood. X-rays of the abdomen no signs of fecal impaction or gross constipation. There is retained stool in the right colon. Some air distended loops of small bowel are seen on the left. Possibilities include focal ileus versus developing partial SBO, no evidence of free air or pneumatosis is seen. Pelvic phleboliths are seen. Full bladder. Bones and soft tissues are unremarkable. CT abdomen and pelvis will be indicated to evaluate for obstruction given patient has not had proper bowel movement over the last 3 weeks. 05/15/20 12:43 d/w over the phone regarding his care CT a/p no acute pathology, there is constipation/fecal retention. no perf, no obstruction, no FF. there are no further episodes of bleeding here. rx stool softener miralax daily for bowel regimen/clean out high fiber diet recommended Pt to be discharged in stable condition. Patient and family made aware of clin ical impression, treatment recommendations and disposition plan, return precautions discussed (including but not limited to new or persistent/worsening symptoms, pain, fevers, or signs of infection, chest pain, respiratory distress, inability to tolerate oral intake, dehydration, syncope, or neurologic changes). Follow up with PMD and/or GI specialist as recommended, follow up information provided, take medications as instructed for duration of time. continue with supportive care, avoid triggers and precipitants. All questions answered to patient's satisfaction and expressed understanding and comfort with this. At the time of discharge, the patient is alert, clinically improved, tolerating po and verbalizes understanding of instructions, satisfied with the care received and felt comfortable with the plan. Patient does not suffer from an acute life- threatening medical condition at this time and is safe for outpatient follow- up. 05/15/20 12:51 Discharge - Discharge Information Problems reviewed: Yes Clinical Impression/Diagnosis: Encounter for medical screening examination, Constipation Condition: Stable Disposition: HOME - Admission No - Additional Discharge Information Prescriptions: Sennosides/Docusate Sodium [Senna-Docusate Sodium Tablet] 1 each PO DAILY #10 tablet - Follow up/Referral Referrals: Shannan Benitez MD [Staff Physician] - Alonso Miranda MD [Staff Physician] - Hernan Miller DO [Staff Physician] - - Patient Discharge Instructions Patient Printed Discharge Instructions: DI for Constipation, DI for Rectal Bleeding Additional Instructions: 1) Please follow-up with your primary care doctor in the next 1-2 days. Please call tomorrow for for any urgent issues. follow up with your induction coordination power engineer, as you could have constipation and rectal bleeding from passage of hard stools. you can take stool softeners to regulate your bowel movements 2) You were given a copy of the tests performed today. Please bring the results with you and review them with your primary care doctor. Your laboratory / imaging results were normal, including your CT imaging 3) If you have any worsening of symptoms or any other concerns please return to the ED immediately. Return if worsening symptoms including fevers, headache, vomiting, visual or hearing disturbances, abdominal pain, chest pain, shortness of breath, syncope, dehydration, inability to take things by mouth/vomiting, altered mental status, or worsening concerning symptoms. 4) Please continue taking your home medications as directed. Miralax 1 capful daily until bowel movements return colace/senna is a stool softener, once a day for your constipation. please consume a high fiber diet. Stay well hydrated and rest adequately. Make an appointment. If you cannot follow-up with your primary care doctor and induction coordination power engineer please return to the ED - Post Discharge Activity
[2020-05-15 09:13] LABS: BASO % 0.7 % (0-2.0); HEMATOCRIT 39.3 % (35.4-49); HEMOGLOBIN 12.7 GM/dL (11.7-16.9); LYMPH % 41.4 % (8-40); MCH 22.3 pg (25.7-33.7); MCHC 32.2 g/dl (32.0-35.9); MEAN CELL VOLUME 69.3 fl (80-96); MEAN PLT VOLUME 8.4 fl (7.5-11.1); MONO % 9.7 % (3.8-10.2); NEUT % 47.2 % (42.8-82.8); PLATELET COUNT 220 K/MM3 (134-434); RBC 5.68 M/mm3 (4.00-5.60); RDW 17.3 % (11.9-15.9); WHITE BLOOD COUNT 3.3 K/mm3 (4.0-10.0)
[2020-05-15 09:17] LABS: INR 1.37 (0.83-1.09); PROTHROMBIN TIME (PATIENT) 16.2 SEC (9.7-13.0)
[2020-05-15 09:33] LABS: ALBUMIN 3.9 g/dl (3.4-5.0); BILIRUBIN,TOTAL 0.4 mg/dL (0.2-1); BLOOD UREA NITROGEN 17.6 mg/dL (7-18); CALCIUM 8.6 mg/dL (8.5-10.1); CREATININE 1.4 mg/dL (0.55-1.3); POTASSIUM 3.6 mmol/L (3.5-5.1); TOT PROT 6.7 g/dl (6.4-8.2)
[2020-05-15] MEDS ORDERED: SODIUM CHLORIDE 0.9% 500 ML INFUS.BAG IV ONE (10:10)
[2020-05-15 13:12] VITALS: BP 157/74; PULSE 72; TEMP 98
--- NOTE | 2020-05-15 16:05 | EKG ---
Test Reason : Blood Pressure : / mmHG Vent. Rate : 072 BPM Atrial Rate : 072 BPM P-R Int : 196 ms QRS Dur : 106 ms QT Int : 400 ms P-R-T Axes : 066 039 065 degrees QTc Int : 438 ms SINUS RHYTHM WITH OCCASIONAL PREMATURE VENTRICULAR COMPLEXES POSSIBLE LEFT ATRIAL ENLARGEMENT LEFT VENTRICULAR HYPERTROPHY ANTERIOR INFARCT (CITED ON OR BEFORE 11-MAR-2012) T WAVE ABNORMALITY, CONSIDER LATERAL ISCHEMIA ABNORMAL ECG WHEN COMPARED WITH ECG OF 03-NOV-2019 13:52, T WAVE INVERSION LESS EVIDENT IN LATERAL LEADS Confirmed by MD Isak, Akira ([id number]) on 05/15/2020 4:05:04 PM Referred By: Confirmed By:Akira Parisi MD
== END 2020-05-15 13:12 | disposition home or self-care (01) ==
LOC: JER 08:12
DX: K59.00 Constipation, unspecified (principal)
CPT/HCPCS: 36415; 74018-TC-FY; 74177-TC; 80053; 82272; 85025; 85610; 85730; 86850; 86900; 86901; 93005; 93010; 99285-25; Q9967

== ENCOUNTER 2023-06-24 08:44 | Emergency (ER) | payer BC ==
[2023-06-24 08:50] VITALS: BP 160/95; PULSE 62; RESP 18; TEMP 98; BMI 26.6
[2023-06-24] MEDS ORDERED: TETRACAINE 0.5% OPHTH SOLN 2 ML BOTTLE OS ONE (09:39)
[2023-06-24] MEDS ORDERED: FLUORESCEIN NA 1 EA STRIP OS ONE (09:39)
[2023-06-24] MEDS ORDERED: FLUORESCEIN NA 1 EA STRIP ONE (09:40)
== END 2023-06-24 10:15 | disposition home or self-care (01) ==
LOC: JER 08:44
DX: S05.02XA Injury of conjunctiva and corneal abrasion without foreign body, left eye, initial encounter (principal); H10.9 Unspecified conjunctivitis; L29.9 Pruritus, unspecified; H57.89 Other specified disorders of eye and adnexa; X58.XXXA Exposure to other specified factors, initial encounter
CPT/HCPCS: 99283-25